=== PATIENT | male | born 1950 | race Hispanic/Latino ===

== ENCOUNTER 2017-07-18 13:58 | Inpatient (IN) | payer MEDICARE ==
[2017-07-18 14:43] LABS: Urine Drugs of Abuse Note Disclamer
[2017-07-18 14:56] LABS: Bilirubin,Urine NEG (Negative); Blood,Urine NEG (Negative); Ketones,Urine NEG (Negative); Leukocyte Esterase,Urine NEG (Negative); Nitrite,Urine NEG (Negative); Protein,Urine <15 mg/dL mg/dL (Negative); Urobilinogen,Urine < 2.0 mg/dL (<2.0); WBC,Urine < 1.0 /HPF (0.0-6.0)
[2017-07-18 15:01] LABS: Eosinophils % (Auto) 1.4 % (0.0-4.3); Hematocrit 31.3 % (35.5-45.6); Hemoglobin 10.8 gm/dl (11.8-15.2); Mean Corpuscular HGB Conc 35 % (32-34); Mean Corpuscular Hemoglobin 36 pg (28-32); Mean Corpuscular Volume 104 fl (84-94); Platelet Count 336 K/mm3 (140-440); Red Blood Count 3.02 M/mm3 (3.65-5.03); Red Cell Distribution Width 12.6 % (13.2-15.2); White Blood Count 6.9 K/mm3 (4.5-11.0)
--- NOTE | 2017-07-18 15:18 | Cat Scan Report ---
FINAL REPORT EXAM: CT HEAD/BRAIN WO CON HISTORY: AMS/Weakness/Confusion TECHNIQUE: CT examination of the head without IV contrast PRIORS: None. FINDINGS: Right frontal scalp swelling with scalp hematoma adjacent skin jackie. Adjacent skull appears intact. No acute air-fluid level visualized in the included air-filled sinuses. Bone windows demonstrate no acute fracture. There is ventricular and sulcal prominence compatible with global cerebrocortical atrophy. Low attenuation regions in the cerebral white matter, while nonspecific, are present and usually attributed to chronic ischemic gliosis. The differential includes demyelination in the appropriate clinical setting. The brain contains no mass, mass effect, hemorrhage, or acute infarct. There is no extra-axial intracranial bleed or brain bleed. There is no midline shift. IMPRESSION: No acute CVA, intracranial bleed, or brain mass
[2017-07-18 15:22] LABS: Alanine Aminotransferase 25 units/L (7-56); Albumin 3.4 g/dL (3.9-5); Albumin/Globulin Ratio 1.4 %; Alkaline Phosphatase 85 units/L (35-129); BUN/Creatinine Ratio 21.66; Blood Urea Nitrogen 13 mg/dL (9-20); Calcium 8.4 mg/dL (8.4-10.2); Carbon Dioxide 25 mmol/L (22-30); Glucose 107 mg/dL (75-100); Total Protein 5.8 g/dL (6.3-8.2)
[2017-07-18 15:23] LABS: Anion Gap 16 mmol/L; Chloride 99.8 mmol/L (98-107); Potassium 3.7 mmol/L (3.6-5.0); Sodium 137 mmol/L (137-145)
--- NOTE | 2017-07-18 15:51 | Emergency Department Report ---
ED General Adult HPI - General Chief complaint: Psych Stated complaint: MED PHYC EVAL Time Seen by Provider: 07/18/17 15:49 Source: patient, EMS Mode of arrival: Stretcher Limitations: No Limitations - History of Present Illness Initial comments: The patient was sent to this facility for medical clearance for a psychiatric facility. Per EMS the patient was sent from [facility] for evaluation and medical clearance to [place]. Nursing tells me that the patient has been seen last night although I think it may have been some time ago at [facility] where he had sutures of a head wound. According to a discharge summary which was printed on 07/13/2017 the patient was discharged with an assessment of bilateral subdural hematoma. He has a history of alcohol abuse. Reading the patient's history however it states the CT of his head was negative for subdural hematoma. Thus I am confused about his diagnosis of prior subdural hematoma. At any case the patient was sent for evaluation with no specific complaint. He has not been agitated per nursing staff. I was advised to this patient prior to my assessment of his chart by another nurse who found the patient on the floor in the room after he had apparently hit the back of his head. The nurse stated that she heard a thunk consistent with the head hitting the floor. When I arrived at the patient's bedside he had already been returned to the [facility]. I asked the patient how he ended up on the floor and if he passed out. He stated that he did not know how he ended up on the floor at all. I asked him if he remembered falling or hitting his head and he answered negatively. I asked him if he ever remembers when he falls or trauma and he stated as well no heat test findings himself on the floor. This certainly is consistent with a syncopal episode. He has evidence of prior sutured wounds of his forehead with sutures in place as well as bilateral ecchymoses periorbital and forehead bruising. He is now awake and alert and oriented. He had previously had a CT of his head which was negative. After the four-hour repeat CT was ordered. -: Sudden Location: head (states the back of his head is sore but mild ) Quality: aching Consistency: intermittent Improves with: none Worsens with: none Associated Symptoms: denies other symptoms Treatments Prior to Arrival: none - Related Data Home Medications Medication Instructions Recorded Confirmed Last Taken No Known Home Medications [No 07/18/17 07/18/17 Unknown Reported Home Medications] Allergies Allergy/AdvReac Type Severity Reaction Status Date / Time codeine Allergy Unknown Verified 07/18/17 14:10 procaine HCl [From Novocain] Allergy Unknown Verified 07/18/17 14:10 ED Review of Systems ROS: Stated complaint: MED PHYC EVAL Other details as noted in HPI Constitutional: denies: chills, fever Eyes: denies: eye pain, eye discharge, vision change ENT: denies: ear pain, throat pain Respiratory: denies: cough, shortness of breath, wheezing Cardiovascular: denies: chest pain, palpitations Endocrine: no symptoms reported Gastrointestinal: denies: abdominal pain, nausea, diarrhea Genitourinary: denies: urgency, dysuria Musculoskeletal: other (denied neck pain). denies: back pain, joint swelling, arthralgia Skin: denies: rash, lesions Neurological: denies: headache, weakness, paresthesias Psychiatric: denies: anxiety, depression Hematological/Lymphatic: denies: easy bleeding, easy bruising ED Past Medical Hx - Past Medical History Previous Medical History?: Yes Additional medical history: hyponatermia. alcohol dependence. hypo- osmolality. bilateral subdural hematomas. elevated lft's. frequent falls - Surgical History Past Surgical History?: Yes Additional Surgical History: cataract. left ankle. ACL surgery - Social History Smoking Status: Never Smoker Substance Use Type: Alcohol - Medications Home Medications: Home Medications Medication Instructions Recorded Confirmed Last Taken Type No Known Home Medications [No 07/18/17 07/18/17 Unknown History Reported Home Medications] ED Physical Exam - General Limitations: Other (dementia) General appearance: alert, in no apparent distress - Head Head exam: Present: normocephalic, other (forehead ecchymosis) - Eye Eye exam: Present: normal appearance, periorbital swelling (periorbital ecchymosis bilaterally). Absent: scleral icterus - ENT ENT exam: Present: mucous membranes moist - Neck Neck exam: Present: normal inspection. Absent: tenderness, meningismus - Respiratory Respiratory exam: Present: normal lung sounds bilaterally. Absent: respiratory distress - Cardiovascular Cardiovascular Exam: Present: regular rate, normal rhythm. Absent: systolic murmur, diastolic murmur, rubs, gallop - GI/Abdominal GI/Abdominal exam: Present: soft, normal bowel sounds. Absent: distended, tenderness, guarding, rebound, rigid - Rectal Rectal exam: Present: deferred - Extremities Exam Extremities exam: Present: normal inspection - Back Exam Back exam: Present: normal inspection - Neurological Exam Neurological exam: Present: alert, oriented X3, CN II-XII intact. Absent: motor sensory deficit (no acute focal deficit) - Psychiatric Psychiatric exam: Present: normal mood, flat affect - Skin Skin exam: Present: warm, dry, intact, ecchymosis. Absent: rash ED Course Vital Signs 07/18/17 07/18/17 07/18/17 14:17 14:30 14:35 Temperature 98.7 F Pulse Rate Blood Pressure 109/60 125/77 O2 Sat by Pulse 100 100 Oximetry 07/18/17 07/18/17 07/18/17 14:45 15:31 15:45 Temperature Pulse Rate Blood Pressure 125/77 137/68 143/80 O2 Sat by Pulse 98 98 100 Oximetry 07/18/17 07/18/17 07/18/17 16:00 16:04 16:15 Temperature Pulse Rate 102 H 101 H Blood Pressure 134/86 134/86 O2 Sat by Pulse 100 100 Oximetry 07/18/17 07/18/17 07/18/17 16:37 16:45 17:00 Temperature Pulse Rate Blood Pressure 134/86 111/64 115/73 O2 Sat by Pulse 94 100 100 Oximetry 07/18/17 07/18/17 07/18/17 17:15 17:31 17:45 Temperature Pulse Rate Blood Pressure 134/86 134/86 99/69 O2 Sat by Pulse 100 97 99 Oximetry 07/18/17 07/18/17 07/18/17 18:00 18:15 18:30 Temperature Pulse Rate Blood Pressure 114/71 99/69 145/86 O2 Sat by Pulse 99 100 100 Oximetry 07/18/17 07/18/17 07/18/17 18:45 19:01 19:15 Temperature Pulse Rate Blood Pressure 114/71 123/67 145/86 O2 Sat by Pulse 100 100 100 Oximetry 07/18/17 19:31 Temperature Pulse Rate Blood Pressure 145/86 O2 Sat by Pulse Oximetry ED Medical Decision Making - Lab Data Result diagrams: 07/18/17 14:45 07/18/17 14:45 Laboratory Results - last 24 hr 07/18/17 07/18/17 07/18/17 14:39 14:39 14:45 WBC 6.9 RBC 3.02 L Hgb 10.8 L Hct 31.3 L MCV 104 H MCH 36 H MCHC 35 H RDW 12.6 L Plt Count 336 Lymph % (Auto) 5.8 L Ocean % (Auto) 10.2 H Eos % (Auto) 1.4 Baso % (Auto) 1.0 Lymph # 0.4 L [place] # 0.7 Eos # 0.1 Baso # 0.1 Seg Neutrophils % 81.6 H Seg Neutrophils # 5.6 Sodium Potassium Chloride Carbon Dioxide Anion Gap BUN Creatinine Estimated GFR BUN/Creatinine Ratio Glucose Calcium Total Bilirubin AST ALT Alkaline Phosphatase Ammonia Total Protein Albumin Albumin/Globulin Ratio Urine Color Straw Urine Turbidity Clear Urine pH 6.0 Ur Specific [place] 1.010 Urine Protein <15 mg/dl Urine Glucose (UA) Neg Urine Ketones Neg Urine Blood Neg Urine Nitrite Neg Urine Bilirubin Neg Urine Urobilinogen < 2.0 Ur Leukocyte Esterase Neg Urine WBC (Auto) < 1.0 Urine RBC (Auto) 1.0 Urine Opiates Screen Presumptive negative Urine Methadone Screen Presumptive negative Ur Barbiturates Screen Presumptive negative Ur Phencyclidine Scrn Presumptive negative Ur Amphetamines Screen Presumptive negative U Benzodiazepines Scrn Presumptive negative Urine Cocaine Screen Presumptive negative U Marijuana (THC) Screen Presumptive negative Drugs of Abuse Note Disclamer 07/18/17 07/18/17 14:45 14:45 WBC RBC Hgb Hct MCV MCH MCHC RDW Plt Count Lymph % (Auto) [place] % (Auto) Eos % (Auto) Baso % (Auto) Lymph # [place] # Eos # Baso # Seg Neutrophils % Seg Neutrophils # Sodium 137 Potassium 3.7 Chloride 99.8 Carbon Dioxide 25 Anion Gap 16 BUN 13 Creatinine 0.6 L Estimated GFR > 60 BUN/Creatinine Ratio 21.66 Glucose 107 H Calcium 8.4 Total Bilirubin 0.60 AST 26 ALT 25 Alkaline Phosphatase 85 Ammonia 28.0 Total Protein 5.8 L Albumin 3.4 L Albumin/Globulin Ratio 1.4 Urine Color Urine Turbidity Urine pH Ur Specific [place] Urine Protein Urine Glucose (UA) Urine Ketones Urine Blood Urine Nitrite Urine Bilirubin Urine Urobilinogen Ur Leukocyte Esterase Urine WBC (Auto) Urine RBC (Auto) Urine Opiates Screen Urine Methadone Screen Ur Barbiturates Screen Ur Phencyclidine Scrn Ur Amphetamines Screen U Benzodiazepines Scrn Urine Cocaine Screen U Marijuana (THC) Screen Drugs of Abuse Note - EKG Data -: EKG Interpreted by Me EKG shows normal: sinus rhythm, axis, intervals, QRS complexes, ST-T waves ( nonspecific changes) - EKG Data Interpretation: nonspecific ST-T wave jannet, other (occasional atrial ectopy) Critical care attestation.: If time is entered above; I have spent that time in minutes in the direct care of this critically ill patient, excluding procedure time. ED Disposition Clinical Impression: Syncope Qualifiers: Syncope type: unspecified Qualified Code(s): R55 - Syncope and collapse Closed head injury Qualifiers: Encounter type: initial encounter Qualified Code(s): S09.90XA - Unspecified injury of head, initial encounter Disposition: 09 OP ADMIT IP TO THIS HOSP Is pt being admited?: Yes Does the pt Need Aspirin: Yes Condition: Stable Instructions: Syncope (ED) Referrals: PRIMARY CARE, [Primary Care Provider] - 3-5 Days Time of Disposition: 19:13
[2017-07-18] MEDS ORDERED: NACL 0.9% 1000 ML 1,000 ML IV ONE (16:01)
--- NOTE | 2017-07-18 16:47 | Cat Scan Report ---
FINAL REPORT EXAM: CT HEAD/BRAIN WO CON HISTORY: fell again in ED LOC TECHNIQUE: CT examination of the head without IV contrast PRIORS: 07/18/2017 FINDINGS: Again noted is right frontal scalp swelling with small scalp hematoma. No adjacent skull fracture. Scalp skin jackie in this region. Again present are prominent dural vessels bilaterally but no definite evidence of subdural hemorrhage. The brain contains no mass, mass effect, hemorrhage, or acute infarct. There is no extra-axial intracranial bleed or brain bleed. There is no midline shift. No acute air-fluid level visualized in the included air-filled sinuses. Bone windows demonstrate no acute fracture. There is ventricular and sulcal prominence again compatible with global cerebrocortical atrophy. Low attenuation regions in the cerebral white matter, while nonspecific, remain present and usually attributed to chronic ischemic gliosis. The differential includes demyelination in the appropriate clinical setting. IMPRESSION: No definite CT evidence of acute CVA, intracranial bleed, or brain mass
--- NOTE | 2017-07-18 17:17 | Cat Scan Report ---
FINAL REPORT EXAM: CT CERVICAL SPINE WO CON HISTORY: fell again in ED LOC TECHNIQUE: CT cervical spine with reconstructions PRIORS: None. FINDINGS: Vertebral bodies demonstrate normal height and alignment. There is degenerative disc space narrowing at C3-C4 and C6-C7 with small marginal osteophytes. Multilevel facet joint arthropathy present throughout the cervical spine. The facet joints demonstrate normal alignment. The spinous processes are intact. Craniocervical junction is unremarkable. C1 and C2 are intact. IMPRESSION: Degenerative disc disease at C3-C4 and C6-C7 Marked multilevel facet joint arthropathy No acute traumatic abnormality identified
[2017-07-18] MEDS ORDERED: BABY ASPIRIN PO ONE (19:13)
--- NOTE | 2017-07-18 20:16 | History and Physical Report ---
History of Present Illness Date of examination: 07/18/17 Date of admission: 07/18/17 19:15 Chief complaint: Passed out multiple times in last 3 months History of present illness: History of Present Illness The patient was sent to this facility for medical clearance from a psychiatric facility. Per EMS the patient was sent from [facility] for evaluation and medical clearance to [place]. According to a discharge summary from [facility] which was printed on 07/13/2017 patient was discharged with an assessment of bilateral subdural hematoma. He has a history of alcohol abuse. Reading the patient's history however it states the CT of his head was negative for subdural hematoma. The patient was sent for evaluation with no specific complaint. He has been agitated per nursing staff. As per patient he has passed out multiple times in the last 3 to 4 months.He pa ssed out in the ER once and fell from [facility]. He is now awake and alert and oriented. He had previously had a CT of his head which was negative. After the four-hour repeat CT was ordered. -: Sudden Location: head (states the back of his head is sore but mild ) Quality: aching Consistency: intermittent Improves with: none Worsens with: none Associated Symptoms: denies other symptoms Treatments Prior to Arrival: none Past Medical History Previous Medical History?: Yes Additional medical history: hyponatermia. alcohol dependence. hypo- osmolality. bilateral subdural hematomas. elevated lft's. frequent falls Surgical History Past Surgical History?: Yes Additional Surgical History: cataract. left ankle. ACL surgery Social History Smoking Status: Never Smoker Substance Use Type: Alcohol Medications Home Medications: Home Medications Medication Instructions Recorded Confirmed Last Taken Type No Known Home Medications [No 07/18/17 07/18/17 Unknown History Reported Home Medications] Review of Systems Stated complaint: MED PHYC EVAL Other details as noted in HPI Constitutional: denies: chills, fever Eyes: denies: eye pain, eye discharge, vision change ENT: denies: ear pain, throat pain Respiratory: denies: cough, shortness of breath, wheezing Cardiovascular: denies: chest pain, palpitations Endocrine: no symptoms reported Gastrointestinal: denies: abdominal pain, nausea, diarrhea Genitourinary: denies: urgency, dysuria Musculoskeletal: other (denied neck pain). denies: back pain, joint swelling, arthralgia Skin: denies: rash, lesions Neurological: denies: headache, weakness, paresthesias Psychiatric: denies: anxiety, depression Hematological/Lymphatic: denies: easy bleeding, easy bruising Medications and Allergies Allergies Allergy/AdvReac Type Severity Reaction Status Date / Time codeine Allergy Unknown Verified 07/18/17 14:10 procaine HCl [From Novocain] Allergy Unknown Verified 07/18/17 14:10 Home Medications Medication Instructions Recorded Confirmed Last Taken Type No Known Home Medications [No 07/18/17 07/18/17 Unknown History Reported Home Medications] Active Meds: Active Medications Sodium Chloride (Nacl 0.9% 1000 Ml) 1,000 mls @ 125 mls/hr IV ONCE ONE Stop: 07/19/17 00:00 Last Admin: 07/18/17 17:00 Dose: 125 mls/hr Exam - Physical Exam Narrative exam: Agitated and confused - Constitutional Vitals: Temp Pulse Resp BP Pulse Ox 98.7 F 101 H 145/86 100 07/18/17 14:35 07/18/17 16:15 07/18/17 19:31 07/18/17 19:15 General appearance: Present: no acute distress, well-nourished - EENT Eyes: Present: PERRL ENT: hearing intact, clear oral mucosa, other (Echymoses on Facr x2) - Neck Neck: Present: supple, normal ROM - Respiratory Respiratory effort: normal Respiratory: bilateral: CTA - Cardiovascular Heart rate: 80 Rhythm: regular Heart Sounds: Present: S1 & S2. Absent: rub, click - Extremities Extremities: no ischemia, pulses intact, pulses symmetrical, No edema Peripheral Pulses: within normal limits - Abdominal General gastrointestinal: Present: soft, non-tender, non-distended, normal bowel sounds Male genitourinary: Present: normal - Rectal Rectal Exam: deferred - Integumentary Integumentary: Present: clear, warm, dry - Musculoskeletal Musculoskeletal: gait normal, strength equal bilaterally - Psychiatric Psychiatric: intact judgment & insight, agitated, other (Confused) - Neurologic Neurologic: CNII-XII intact, moves all extremities - Allied Health Allied health notes reviewed: nursing, case management Results - Labs CBC & Chem 7: 07/18/17 14:45 07/18/17 14:45 Labs: Laboratory Last Values WBC 6.9 K/mm3 (4.5-11.0) 07/18/17 14:45 RBC 3.02 M/mm3 (3.65-5.03) L 07/18/17 14:45 Hgb 10.8 gm/dl (11.8-15.2) L 07/18/17 14:45 Hct 31.3 % (35.5-45.6) L 07/18/17 14:45 MCV 104 fl (84-94) H 07/18/17 14:45 MCH 36 pg (28-32) H 07/18/17 14:45 MCHC 35 % (32-34) H 07/18/17 14:45 RDW 12.6 % (13.2-15.2) L 07/18/17 14:45 Plt Count 336 K/mm3 (140-440) 07/18/17 14:45 Lymph % (Auto) 5.8 % (13.4-35.0) L 07/18/17 14:45 [place] % (Auto) 10.2 % (0.0-7.3) H 07/18/17 14:45 Eos % (Auto) 1.4 % (0.0-4.3) 07/18/17 14:45 Baso % (Auto) 1.0 % (0.0-1.8) 07/18/17 14:45 Lymph # 0.4 K/mm3 (1.2-5.4) L 07/18/17 14:45 [place] # 0.7 K/mm3 (0.0-0.8) 07/18/17 14:45 Eos # 0.1 K/mm3 (0.0-0.4) 07/18/17 14:45 Baso # 0.1 K/mm3 (0.0-0.1) 07/18/17 14:45 Seg Neutrophils % 81.6 % (40.0-70.0) H 07/18/17 14:45 Seg Neutrophils # 5.6 K/mm3 (1.8-7.7) 07/18/17 14:45 Sodium 137 mmol/L (137-145) 07/18/17 14:45 Potassium 3.7 mmol/L (3.6-5.0) 07/18/17 14:45 Chloride 99.8 mmol/L (98-107) 07/18/17 14:45 Carbon Dioxide 25 mmol/L (22-30) 07/18/17 14:45 Anion Gap 16 mmol/L 07/18/17 14:45 BUN 13 mg/dL (9-20) 07/18/17 14:45 Creatinine 0.6 mg/dL (0.8-1.5) L 07/18/17 14:45 Estimated GFR > 60 ml/min 07/18/17 14:45 BUN/Creatinine Ratio 21.66 % 07/18/17 14:45 Glucose 107 mg/dL (75-100) H 07/18/17 14:45 Calcium 8.4 mg/dL (8.4-10.2) 07/18/17 14:45 Total Bilirubin 0.60 mg/dL (0.1-1.2) 07/18/17 14:45 AST 26 units/L (5-40) 07/18/17 14:45 ALT 25 units/L (7-56) 07/18/17 14:45 Alkaline Phosphatase 85 units/L (35-129) 07/18/17 14:45 Ammonia 28.0 umol/L (25-60) 07/18/17 14:45 Total Protein 5.8 g/dL (6.3-8.2) L 07/18/17 14:45 Albumin 3.4 g/dL (3.9-5) L 07/18/17 14:45 Albumin/Globulin Ratio 1.4 % 07/18/17 14:45 Urine Color Straw (Yellow) 07/18/17 14:39 Urine Turbidity Clear (Clear) 07/18/17 14:39 Urine pH 6.0 (5.0-7.0) 07/18/17 14:39 Ur Specific [place] 1.010 (1.003-1.030) 07/18/17 14:39 Urine Protein <15 mg/dl mg/dL (Negative) 07/18/17 14:39 Urine Glucose (UA) Neg mg/dL (Negative) 07/18/17 14:39 Urine Ketones Neg mg/dL (Negative) 07/18/17 14:39 Urine Blood Neg (Negative) 07/18/17 14:39 Urine Nitrite Neg (Negative) 07/18/17 14:39 Urine Bilirubin Neg (Negative) 07/18/17 14:39 Urine Urobilinogen < 2.0 mg/dL (<2.0) 07/18/17 14:39 Ur Leukocyte Esterase Neg (Negative) 07/18/17 14:39 Urine WBC (Auto) < 1.0 /HPF (0.0-6.0) 07/18/17 14:39 Urine RBC (Auto) 1.0 /HPF (0.0-6.0) 07/18/17 14:39 Urine Opiates Screen Presumptive negative 07/18/17 14:39 Urine Methadone Screen Presumptive negative 07/18/17 14:39 Ur Barbiturates Screen Presumptive negative 07/18/17 14:39 Ur Phencyclidine Scrn Presumptive negative 07/18/17 14:39 Ur Amphetamines Screen Presumptive negative 07/18/17 14:39 U Benzodiazepines Scrn Presumptive negative 07/18/17 14:39 Urine Cocaine Screen Presumptive negative 07/18/17 14:39 U Marijuana (THC) Screen Presumptive negative 07/18/17 14:39 Drugs of Abuse Note Disclamer 07/18/17 14:39 Plasma/Serum Alcohol < 0.01 gm% (0-0.07) 07/18/17 14:45 - Imaging and Cardiology CT Scan - head: report reviewed (No SDH) Assessment and Plan Advance Directives: Yes (Full code) VTE prophylaxis?: Chemical Plan of care discussed with patient/family: Yes - Patient Problems (1) Toxic encephalopathy Current Visit: Yes Status: Acute Plan to address problem: Sec to DT'sbecause of his ETOH dependence.Banana bag and CIWA protocol ordered (2) Delirium tremens Current Visit: Yes Status: Acute Plan to address problem: CIWA protocol initiated (3) Closed head injury Current Visit: Yes Status: Acute Qualifiers: Encounter type: initial encounter Qualified Code(s): S09.90XA - Unspecified injury of head, initial encounter Plan to address problem: No SDH (4) Syncope Current Visit: Yes Status: Acute Qualifiers: Syncope type: unspecified Encounter type: E Qualified Code(s): R55 - Syncope and collapse Plan to address problem: Syncope w/u .CDS and Lexiscan ordeered (5) Anemia Current Visit: Yes Status: Chronic Qualifiers: Anemia type: A Iron deficiency anemia type: I Vitamin B12 deficiency anemia type: V Folate deficiency anemia type: F Bone marrow failure anemia type: B Hemolytic anemia type: H Other causes of anemia: O Chronic kidney disease stage: C Plan to address problem: iron levels folic acid and B12 ordered. (6) DVT prophylaxis Current Visit: Yes Status: Acute Plan to address problem: on Lovenox
[2017-07-18] MEDS ORDERED: ZOFRAN IV PRN (20:17)
[2017-07-18] MEDS ORDERED: DILAUDID IV PRN (20:17)
[2017-07-18] MEDS ORDERED: DULCOLAX PR PRN (20:17)
[2017-07-18] MEDS ORDERED: MILK OF MAGNESIA PO PRN (20:17)
[2017-07-18] MEDS ORDERED: PERCOCET 5/325 PO PRN (20:17)
--- NOTE | 2017-07-18 20:21 | History and Physical Report ---
History of Present Illness Date of examination: 07/18/17 Date of admission: 07/18/17 19:15 Medications and Allergies Allergies Allergy/AdvReac Type Severity Reaction Status Date / Time codeine Allergy Unknown Verified 07/18/17 14:10 procaine HCl [From Novocain] Allergy Unknown Verified 07/18/17 14:10 Home Medications Medication Instructions Recorded Confirmed Last Taken Type No Known Home Medications [No 07/18/17 07/18/17 Unknown History Reported Home Medications] Active Meds: Active Medications Acetaminophen (Tylenol) 650 mg PO Q4H PRN PRN Reason: Pain MILD(1-3)/Fever >100.5/CRESPO Bisacodyl (Dulcolax) 10 mg SD QDAY PRN PRN Reason: Constipation unrelieved by MOM Famotidine (Pepcid) 20 mg IV BID RIMA Hydromorphone HCl (Dilaudid) 0.5 mg IV Q3H PRN PRN Reason: Pain , Severe (7-10) Sodium Chloride (Nacl 0.9% 1000 Ml) 1,000 mls @ 125 mls/hr IV ONCE ONE Stop: 07/19/17 00:00 Last Admin: 07/18/17 17:00 Dose: 125 mls/hr Sodium Chloride (Nacl 0.9% 1000 Ml) 1,000 mls @ 75 mls/hr IV DIRECT RIMA Magnesium Hydroxide (Milk Of Magnesia) 30 ml PO Q4H PRN PRN Reason: Constipation Ondansetron HCl (Zofran) 4 mg IV Q8H PRN PRN Reason: N/V unrelieved by Reglan Oxycodone/Acetaminophen (Percocet 5/325) 1 tab PO Q6H PRN PRN Reason: Pain, Moderate (4-6) Zolpidem Tartrate (Ambien) 5 mg PO QHS PRN PRN Reason: Insomnia Exam - Constitutional Vitals: Temp Pulse Resp BP Pulse Ox 98.7 F 101 H 145/86 100 07/18/17 14:35 07/18/17 16:15 07/18/17 19:31 07/18/17 19:15 Results - Labs CBC & Chem 7: 07/18/17 14:45 07/18/17 14:45 Labs: Laboratory Last Values WBC 6.9 K/mm3 (4.5-11.0) 07/18/17 14:45 RBC 3.02 M/mm3 (3.65-5.03) L 07/18/17 14:45 Hgb 10.8 gm/dl (11.8-15.2) L 07/18/17 14:45 Hct 31.3 % (35.5-45.6) L 07/18/17 14:45 MCV 104 fl (84-94) H 07/18/17 14:45 MCH 36 pg (28-32) H 07/18/17 14:45 MCHC 35 % (32-34) H 07/18/17 14:45 RDW 12.6 % (13.2-15.2) L 07/18/17 14:45 Plt Count 336 K/mm3 (140-440) 07/18/17 14:45 Lymph % (Auto) 5.8 % (13.4-35.0) L 07/18/17 14:45 [place] % (Auto) 10.2 % (0.0-7.3) H 07/18/17 14:45 Eos % (Auto) 1.4 % (0.0-4.3) 07/18/17 14:45 Baso % (Auto) 1.0 % (0.0-1.8) 07/18/17 14:45 Lymph # 0.4 K/mm3 (1.2-5.4) L 07/18/17 14:45 [place] # 0.7 K/mm3 (0.0-0.8) 07/18/17 14:45 Eos # 0.1 K/mm3 (0.0-0.4) 07/18/17 14:45 Baso # 0.1 K/mm3 (0.0-0.1) 07/18/17 14:45 Seg Neutrophils % 81.6 % (40.0-70.0) H 07/18/17 14:45 Seg Neutrophils # 5.6 K/mm3 (1.8-7.7) 07/18/17 14:45 Sodium 137 mmol/L (137-145) 07/18/17 14:45 Potassium 3.7 mmol/L (3.6-5.0) 07/18/17 14:45 Chloride 99.8 mmol/L (98-107) 07/18/17 14:45 Carbon Dioxide 25 mmol/L (22-30) 07/18/17 14:45 Anion Gap 16 mmol/L 07/18/17 14:45 BUN 13 mg/dL (9-20) 07/18/17 14:45 Creatinine 0.6 mg/dL (0.8-1.5) L 07/18/17 14:45 Estimated GFR > 60 ml/min 07/18/17 14:45 BUN/Creatinine Ratio 21.66 % 07/18/17 14:45 Glucose 107 mg/dL (75-100) H 07/18/17 14:45 Calcium 8.4 mg/dL (8.4-10.2) 07/18/17 14:45 Total Bilirubin 0.60 mg/dL (0.1-1.2) 07/18/17 14:45 AST 26 units/L (5-40) 07/18/17 14:45 ALT 25 units/L (7-56) 07/18/17 14:45 Alkaline Phosphatase 85 units/L (35-129) 07/18/17 14:45 Ammonia 28.0 umol/L (25-60) 07/18/17 14:45 Total Protein 5.8 g/dL (6.3-8.2) L 07/18/17 14:45 Albumin 3.4 g/dL (3.9-5) L 07/18/17 14:45 Albumin/Globulin Ratio 1.4 % 07/18/17 14:45 Urine Color Straw (Yellow) 07/18/17 14:39 Urine Turbidity Clear (Clear) 07/18/17 14:39 Urine pH 6.0 (5.0-7.0) 07/18/17 14:39 Ur Specific [place] 1.010 (1.003-1.030) 07/18/17 14:39 Urine Protein <15 mg/dl mg/dL (Negative) 07/18/17 14:39 Urine Glucose (UA) Neg mg/dL (Negative) 07/18/17 14:39 Urine Ketones Neg mg/dL (Negative) 07/18/17 14:39 Urine Blood Neg (Negative) 07/18/17 14:39 Urine Nitrite Neg (Negative) 07/18/17 14:39 Urine Bilirubin Neg (Negative) 07/18/17 14:39 Urine Urobilinogen < 2.0 mg/dL (<2.0) 07/18/17 14:39 Ur Leukocyte Esterase Neg (Negative) 07/18/17 14:39 Urine WBC (Auto) < 1.0 /HPF (0.0-6.0) 07/18/17 14:39 Urine RBC (Auto) 1.0 /HPF (0.0-6.0) 07/18/17 14:39 Urine Opiates Screen Presumptive negative 07/18/17 14:39 Urine Methadone Screen Presumptive negative 07/18/17 14:39 Ur Barbiturates Screen Presumptive negative 07/18/17 14:39 Ur Phencyclidine Scrn Presumptive negative 07/18/17 14:39 Ur Amphetamines Screen Presumptive negative 07/18/17 14:39 U Benzodiazepines Scrn Presumptive negative 07/18/17 14:39 Urine Cocaine Screen Presumptive negative 07/18/17 14:39 U Marijuana (THC) Screen Presumptive negative 07/18/17 14:39 Drugs of Abuse Note Disclamer 07/18/17 14:39 Plasma/Serum Alcohol < 0.01 gm% (0-0.07) 07/18/17 14:45
[2017-07-18] MEDS ORDERED: ATIVAN IV PRN ×3 (20:32→20:48)
[2017-07-18] MEDS ORDERED: LIBRIUM PO PRN ×4 (20:32→20:48)
[2017-07-18] MEDS ORDERED: ATIVAN ONE (20:42)
[2017-07-18] MEDS ORDERED: BABY ASPIRIN ONE (20:46)
[2017-07-18] MEDS ORDERED: ATIVAN PO PRN ×2 (20:48)
[2017-07-18] MEDS: NACL 0.9% 1000 ML 1,000 ML IV SCH (21:53)
[2017-07-18] MEDS: PEPCID IV SCH (21:53)
[2017-07-18 22:13] LABS: Creatine Kinase MB 3.2 ng/mL (0.0-4.0)
[2017-07-18 22:14] LABS: Creatine Kinase 121 units/L (55-170)
[2017-07-18 22:36] LABS: Albumin 3.3 g/dL (3.9-5); Albumin/Globulin Ratio 1.3 %; Bilirubin,Direct 0.2 mg/dL (0-0.2); Bilirubin,Indirect 0.4 mg/dL; Bilirubin,Total 0.6 mg/dL (0.1-1.2); Total Protein 5.8 g/dL (6.3-8.2)
[2017-07-18] MEDS: ATIVAN IV PRN (22:36)
[2017-07-19] MEDS: ATIVAN IV PRN ×2 (06:43→14:48)
[2017-07-19] MEDS ORDERED: LEXISCAN IV ONE ×2 (08:04→08:14)
[2017-07-19] MEDS ORDERED: VITAMIN B-1 100 MG, FOLVITE 1 MG, INFUVITE 10 ML in NACL 0.9% 1000 ML 1,000 ML IV ONE (08:30)
[2017-07-19 08:44] LABS: Basophils % (Auto) 1.2 % (0.0-1.8); Eosinophils % (Auto) 1.6 % (0.0-4.3); Hematocrit 30.8 % (35.5-45.6); Hemoglobin 10.5 gm/dl (11.8-15.2); Mean Corpuscular HGB Conc 34 % (32-34); Mean Corpuscular Hemoglobin 35 pg (28-32); Mean Corpuscular Volume 103 fl (84-94); Platelet Count 318 K/mm3 (140-440); Red Blood Count 2.98 M/mm3 (3.65-5.03); Red Cell Distribution Width 12.6 % (13.2-15.2); White Blood Count 5.8 K/mm3 (4.5-11.0)
[2017-07-19 09:01] LABS: Alanine Aminotransferase 22 units/L (7-56); Albumin 2.9 g/dL (3.9-5); Alkaline Phosphatase 74 units/L (35-129); Anion Gap 17 mmol/L; Blood Urea Nitrogen 9 mg/dL (9-20); Carbon Dioxide 23 mmol/L (22-30); Chloride 101.6 mmol/L (98-107); Glucose 82 mg/dL (75-100); Potassium 3.7 mmol/L (3.6-5.0); Sodium 138 mmol/L (137-145); Total Protein 5.7 g/dL (6.3-8.2)
[2017-07-19 09:02] LABS: Creatine Kinase 88 units/L (55-170)
--- NOTE | 2017-07-19 09:28 | XRay Report ---
AP CHEST: HISTORY: Hypertension AP view of the chest demonstrates a normal mediastinal and cardiac contour with clear lungs and normal bony and soft tissue structures. IMPRESSION: Unremarkable AP chest.
--- NOTE | 2017-07-19 12:49 | Progress Note ---
Assessment and Plan Assessment and plan: Alcohol withdrawal syndrome. Admitted to Telemetry He has been started on CIWA protocol. Thiamine, folic acid. Syncope. Obtain Echocardiogram, carotid Doppler ultrasound Alcohol abuse. Counseled on importance of quitting. History of subdural hematoma. History of frequent falls. Consult physical therapy DVT prophylaxis. SCDs only. No anticoagulation because of history of multiple falls and subdural hematoma. FULL CODE STATUS Hospitalist Physical - Physical exam Narrative exam: Gen appearance: Not in acute distress HEENT: Bruises, small hematoma on forehead, wound with 2 jackie on face Neck: supple, no JVD, Lungs: Clear to auscultation bilaterally, no crackles or wheezes Heart :S1 and S2 regular, no murmurs, rubs or gallop Abdomen: Soft, non tender, non-distended, normal bowel sounds. Extremities :no edema, no clubbing or cyanosis Neuro: Awake,alert, oriented, tremors of hands, moves all ext - Constitutional Vitals: Temp Pulse Resp BP Pulse Ox 97.9 F 74 18 144/73 98 07/19/17 08:59 07/19/17 11:36 07/19/17 08:59 07/19/17 11:36 07/19/17 08:59 General appearance: Present: no acute distress, well-nourished Results - Labs CBC & Chem 7: 07/19/17 08:18 07/19/17 04:00 Labs: Laboratory Last Values WBC 5.8 K/mm3 (4.5-11.0) 07/19/17 08:18 RBC 2.98 M/mm3 (3.65-5.03) L 07/19/17 08:18 Hgb 10.5 gm/dl (11.8-15.2) L 07/19/17 08:18 Hct 30.8 % (35.5-45.6) L 07/19/17 08:18 MCV 103 fl (84-94) H 07/19/17 08:18 MCH 35 pg (28-32) H 07/19/17 08:18 MCHC 34 % (32-34) 07/19/17 08:18 RDW 12.6 % (13.2-15.2) L 07/19/17 08:18 Plt Count 318 K/mm3 (140-440) 07/19/17 08:18 Lymph % (Auto) 7.1 % (13.4-35.0) L 07/19/17 08:18 [place] % (Auto) 11.1 % (0.0-7.3) H 07/19/17 08:18 Eos % (Auto) 1.6 % (0.0-4.3) 07/19/17 08:18 Baso % (Auto) 1.2 % (0.0-1.8) 07/19/17 08:18 Lymph # 0.4 K/mm3 (1.2-5.4) L 07/19/17 08:18 [place] # 0.6 K/mm3 (0.0-0.8) 07/19/17 08:18 Eos # 0.1 K/mm3 (0.0-0.4) 07/19/17 08:18 Baso # 0.1 K/mm3 (0.0-0.1) 07/19/17 08:18 Seg Neutrophils % 79.0 % (40.0-70.0) H 07/19/17 08:18 Seg Neutrophils # 4.6 K/mm3 (1.8-7.7) 07/19/17 08:18 Sodium 138 mmol/L (137-145) 07/19/17 04:00 Potassium 3.7 mmol/L (3.6-5.0) 07/19/17 04:00 Chloride 101.6 mmol/L (98-107) 07/19/17 04:00 Carbon Dioxide 23 mmol/L (22-30) 07/19/17 04:00 Anion Gap 17 mmol/L 07/19/17 04:00 BUN 9 mg/dL (9-20) 07/19/17 04:00 Creatinine 0.5 mg/dL (0.8-1.5) L 07/19/17 04:00 Estimated GFR > 60 ml/min 07/19/17 04:00 BUN/Creatinine Ratio 18.00 % 07/19/17 04:00 Glucose 82 mg/dL (75-100) 07/19/17 04:00 Hemoglobin A1c 4.5 % (4-6) 07/18/17 21:37 Calcium 8.0 mg/dL (8.4-10.2) L 07/19/17 04:00 Iron 32 ug/dL (49-181) L 07/18/17 21:38 TIBC 182.00 mcg/dL (250-450) L 07/18/17 21:38 % Saturation 17.58 % 07/18/17 21:38 Transferrin 130 mg/dl (180-329) L 07/18/17 21:38 Total Bilirubin 0.60 mg/dL (0.1-1.2) 07/19/17 04:00 Direct Bilirubin 0.2 mg/dL (0-0.2) 07/18/17 14:45 Indirect Bilirubin 0.4 mg/dL 07/18/17 14:45 AST 25 units/L (5-40) 07/19/17 04:00 ALT 22 units/L (7-56) 07/19/17 04:00 Alkaline Phosphatase 74 units/L (35-129) 07/19/17 04:00 Ammonia 28.0 umol/L (25-60) 07/18/17 14:45 Total Creatine Kinase 88 units/L (55-170) 07/19/17 08:18 CK-MB (CK-2) 3.0 ng/mL (0.0-4.0) 07/19/17 08:18 CK-MB (CK-2) Rel Index 3.4 (0-4) 07/19/17 08:18 Troponin T < 0.010 ng/mL (0.00-0.029) 07/19/17 08:18 Total Protein 5.7 g/dL (6.3-8.2) L 07/19/17 04:00 Albumin 2.9 g/dL (3.9-5) L 07/19/17 04:00 Albumin/Globulin Ratio 1.0 % 07/19/17 04:00 Vitamin B12 510.9 pg/mL (211-911) 07/18/17 21:39 Urine Color Straw (Yellow) 07/18/17 14:39 Urine Turbidity Clear (Clear) 07/18/17 14:39 Urine pH 6.0 (5.0-7.0) 07/18/17 14:39 Ur Specific [place] 1.010 (1.003-1.030) 07/18/17 14:39 Urine Protein <15 mg/dl mg/dL (Negative) 07/18/17 14:39 Urine Glucose (UA) Neg mg/dL (Negative) 07/18/17 14:39 Urine Ketones Neg mg/dL (Negative) 07/18/17 14:39 Urine Blood Neg (Negative) 07/18/17 14:39 Urine Nitrite Neg (Negative) 07/18/17 14:39 Urine Bilirubin Neg (Negative) 07/18/17 14:39 Urine Urobilinogen < 2.0 mg/dL (<2.0) 07/18/17 14:39 Ur Leukocyte Esterase Neg (Negative) 07/18/17 14:39 Urine WBC (Auto) < 1.0 /HPF (0.0-6.0) 07/18/17 14:39 Urine RBC (Auto) 1.0 /HPF (0.0-6.0) 07/18/17 14:39 Urine Opiates Screen Presumptive negative 07/18/17 14:39 Urine Methadone Screen Presumptive negative 07/18/17 14:39 Ur Barbiturates Screen Presumptive negative 07/18/17 14:39 Ur Phencyclidine Scrn Presumptive negative 07/18/17 14:39 Ur Amphetamines Screen Presumptive negative 07/18/17 14:39 U Benzodiazepines Scrn Presumptive negative 07/18/17 14:39 Urine Cocaine Screen Presumptive negative 07/18/17 14:39 U Marijuana (THC) Screen Presumptive negative 07/18/17 14:39 Drugs of Abuse Note Disclamer 07/18/17 14:39 Plasma/Serum Alcohol < 0.01 gm% (0-0.07) 07/18/17 14:45
[2017-07-19] MEDS: PEPCID IV SCH ×2 (13:38→21:41)
--- NOTE | 2017-07-19 20:19 | Treadmill Report ---
THALLIUM STRESS TEST LEFT VENTRICLE: Left ventricular chamber size is within normal spread. Perfusion study is suboptimal with extensive motion artifact. No significant reversible defects identified. Gated analysis demonstrates normal left ventricular systolic function, ejection fraction 72%. CONCLUSION: This is a suboptimal perfusion study, but no demonstrable ischemic coronary disease. Clinical correlation is recommended. JOB# [id number] CA/NTS
--- NOTE | 2017-07-20 02:30 | Admit Criteria Form ---
Admission Criteria Documentation: SYNCOPE Clinical Indications for Admission to Inpatient Care ( Place 'X' for any and all applicable criteria): Admission is indicated for syncope and 1 or more of the following(1)(2)(3)(4)(5) (6)(7): [ ]I. Hemodynamic instability [X]II. Suspicion of imminently dangerous cause (eg, subarachnoid hemorrhage, pulmonary embolism) [ ]III. Syncope causing injury requiring hospitalization [ ]IV. Respiratory distress [ ]V. Acute coronary syndrome identified. See Myocardial Infarction or Angina guideline [ ]V. Inpatient admission required rather than observation care (Also use Syncope: Observation Care Criteria as appropriate) because of 1 or more of the following: [ ]1) Cardiac arrhythmias of immediate concern identified or strongly suspected (eg, needs electrophysiologic study) [ ]2) Structural cardiac disorder (eg, aortic stenosis) suspected as cause that requires immediate treatment [ ]3) Neurologic signs or symptoms that are severe or persistent (eg, stroke, seizures, altered mental status) [ ]4) Severe electrolyte abnormalities requiring inpatient care [ ]5) Respiratory symptoms (eg, dyspnea, tachypnea) that are severe or persistent [ ]6) Dehydration that is severe or persistent [ ]7) Continuous intravenous infusion of anticoagulation, platelet inhibitor, vasoactive, or antiarrhythmic medication(15)(16 [ ]8) Pulmonary artery catheter monitoring [ ]9) Temporary pacemaker placement [ ]10) Emergent cardioversion [ ]11) Other condition,treatment,or monitoring requiring inpatient admission Extended stay beyond goal length of stay may be needed for(28) [ ]a) Dangerous arrhythmia(15)(23)(27)(29) [ ]b) Myocardial ischemia [ ]c) Seizure disorder [ ]d) Syncope-related injuries The original [facility] content created by [facility] has been revised. The portions of the content which have been revised are identified through the use of italic text or in bold, and [facility] has neither reviewed nor approved the modified material. All other unmodified content is copyright [facility]. Please see references footnoted in the original [facility] edition 2017 Admission Criteria Met: Yes
[2017-07-20 09:07] LABS: Hematocrit 32.5 % (35.5-45.6); Hemoglobin 10.8 gm/dl (11.8-15.2)
[2017-07-20] MEDS: PEPCID IV SCH (10:00)
[2017-07-20] MEDS: PEPCID PO SCH ×2 (14:44→23:38)
--- NOTE | 2017-07-20 14:51 | Consultation ---
History of Present Illness - Reason for Consult Consult date: 07/20/17 Reason for consult: Mental Health Evaluation Requesting physician: GUALBERTO DRIVER - Chief Complaint Chief complaint: "Etoh" - History of Present Psychiatric Illness The patient was sent to this facility for medical clearance from a psychiatric facility. Per EMS the patient was sent from [facility] for evaluation and medical clearance to [facility]. Today patient is confused during the assessment. He was able to tell me his , but could not tell me his current location and correctly recall 3 numbers (3, 5, 10 ) within 5 mins. Patient poor historian. No gestures of SI/HI's. Medications and Allergies Allergies Allergy/AdvReac Type Severity Reaction Status Date / Time codeine Allergy Unknown Verified 07/18/17 14:10 procaine HCl [From Novocain] Allergy Unknown Verified 07/18/17 14:10 Home Medications Medication Instructions Recorded Confirmed Last Taken Type No Known Home Medications [No 07/18/17 07/18/17 Unknown History Reported Home Medications] Active Meds: Active Medications Acetaminophen (Tylenol) 650 mg PO Q4H PRN PRN Reason: Pain MILD(1-3)/Fever >100.5/CRESPO Bisacodyl (Dulcolax) 10 mg PA QDAY PRN PRN Reason: Constipation unrelieved by MOM Famotidine (Pepcid) 20 mg PO BID RIMA Last Admin: 07/20/17 14:44 Dose: 20 mg Hydromorphone HCl (Dilaudid) 0.5 mg IV Q3H PRN PRN Reason: Pain , Severe (7-10) Sodium Chloride (Nacl 0.9% 1000 Ml) 1,000 mls @ 75 mls/hr IV DIRECT RIMA Last Admin: 07/18/17 21:53 Dose: 75 mls/hr Lorazepam (Ativan) 4 mg IV Q15MIN PRN PRN Reason: CIWA-Ar >25 Stop: 07/23/17 20:49 Last Admin: 07/19/17 20:47 Dose: 4 mg Lorazepam (Ativan) 4 mg IV Q1H PRN PRN Reason: CIWA-Ar 16-25 Last Admin: 07/20/17 14:45 Dose: 4 mg Lorazepam (Ativan) 2 mg IV Q1H PRN PRN Reason: CIWA-Ar 8-15 Last Admin: 07/19/17 16:39 Dose: 2 mg Magnesium Hydroxide (Milk Of Magnesia) 30 ml PO Q4H PRN PRN Reason: Constipation Ondansetron HCl (Zofran) 4 mg IV Q8H PRN PRN Reason: N/V unrelieved by Reglan Oxycodone/Acetaminophen (Percocet 5/325) 1 tab PO Q6H PRN PRN Reason: Pain, Moderate (4-6) Zolpidem Tartrate (Ambien) 5 mg PO QHS PRN PRN Reason: Insomnia Past psychiatric history - Past Medical History Past Medical History: other (Unable to obtain) Past Surgical History: Other (Unable to obtain) - past Psychiatric treatment and history psychiatric treatment history: Per the ER note, patient came from a mental health facility for medical clearance. - Social History Social history: other (Unable to obtain) Mental Status Exam - Vital signs Last Vital Signs Temp 97.6 F 07/20/17 13:00 Pulse 98 H 07/20/17 13:00 Resp 20 07/20/17 13:00 BP 143/84 07/20/17 13:00 Pulse Ox 99 07/20/17 13:00 - Exam Narrative exam: Could not complete MSE, patient is confused. Results Result Diagrams: 07/20/17 08:51 07/19/17 04:00 Abnormal lab results 07/20/17 Range/Units 08:51 Hgb 10.8 L (11.8-15.2) gm/dl Hct 32.5 L (35.5-45.6) % All other labs normal. Assessment and Plan Assessment and plan: Impression: Historical Dx: Per the ER note alcohol abuse. Today patient is confused during the assessment. Patient malodorous on assessment. Patient in restraints. Medical: Alcohol withdrawal syndrome, Syncope Recommendation/Plan: Gather collateral information to help determine proper treatment. Continue CIWA Protocol. Use Ativan per CIWA protocol only. Delirium precautions below. 1. Frequently reorient patient and involve him/her in their care (simple explanations of procedures, tests, medications). 2. Lights on and shades open during daytime hours. 3. Try to avoid unnecessary interruptions to sleep during nighttime hours. 4. Obtain glasses, hearing aids from home if patient uses these at baseline. 5. Avoid medications that may exacerbate delirium (especially narcotics - Percocet use alternative medication for pain if possible, benzodiazepines, barbiturates, ambien, lunesta, and medications with excessive anticholinergic properties). 6. D/C restraints when not indicated.
--- NOTE | 2017-07-20 18:34 | Progress Note ---
Assessment and Plan Assessment and plan: Alcohol withdrawal syndrome. Admitted to Telemetry. Continue CIWA protocol. Thiamine, folic acid. he is getting better. Less confusion, less agitation. Syncope. EF 55-60% Alcohol abuse. Counseled on importance of quitting. History of subdural hematoma. History of frequent falls. Will consult physical therapy when off restraints DVT prophylaxis. SCDs only. No anticoagulation because of history of multiple falls and subdural hematoma. FULL CODE STATUS History Interval history: Still confused, agitated Hospitalist Physical - Physical exam Narrative exam: Gen appearance: Not in acute distress HEENT: Bruises, small hematoma on forehead, wound with 2 jackie on forehead Neck: supple, no JVD, Lungs: Clear to auscultation bilaterally, no crackles or wheezes Heart :S1 and S2 regular, no murmurs, rubs or gallop Abdomen: Soft, non tender, non-distended, normal bowel sounds. Extremities :no edema, no clubbing or cyanosis Neuro: Awake,alert, oriented, tremors of hands, moves all ext - Constitutional Vitals: Temp Pulse Resp BP Pulse Ox 98.1 F 71 20 168/92 98 07/20/17 17:00 07/20/17 17:00 07/20/17 17:00 07/20/17 17:00 07/20/17 17:00 General appearance: Present: no acute distress, well-nourished Results - Labs CBC & Chem 7: 07/20/17 08:51 07/19/17 04:00 Labs: Laboratory Last Values WBC 5.8 K/mm3 (4.5-11.0) 07/19/17 08:18 RBC 2.98 M/mm3 (3.65-5.03) L 07/19/17 08:18 Hgb 10.8 gm/dl (11.8-15.2) L 07/20/17 08:51 Hct 32.5 % (35.5-45.6) L 07/20/17 08:51 MCV 103 fl (84-94) H 07/19/17 08:18 MCH 35 pg (28-32) H 07/19/17 08:18 MCHC 34 % (32-34) 07/19/17 08:18 RDW 12.6 % (13.2-15.2) L 07/19/17 08:18 Plt Count 318 K/mm3 (140-440) 07/19/17 08:18 Lymph % (Auto) 7.1 % (13.4-35.0) L 07/19/17 08:18 [place] % (Auto) 11.1 % (0.0-7.3) H 07/19/17 08:18 Eos % (Auto) 1.6 % (0.0-4.3) 07/19/17 08:18 Baso % (Auto) 1.2 % (0.0-1.8) 07/19/17 08:18 Lymph # 0.4 K/mm3 (1.2-5.4) L 07/19/17 08:18 [place] # 0.6 K/mm3 (0.0-0.8) 07/19/17 08:18 Eos # 0.1 K/mm3 (0.0-0.4) 07/19/17 08:18 Baso # 0.1 K/mm3 (0.0-0.1) 07/19/17 08:18 Seg Neutrophils % 79.0 % (40.0-70.0) H 07/19/17 08:18 Seg Neutrophils # 4.6 K/mm3 (1.8-7.7) 07/19/17 08:18 Sodium 138 mmol/L (137-145) 07/19/17 04:00 Potassium 3.7 mmol/L (3.6-5.0) 07/19/17 04:00 Chloride 101.6 mmol/L (98-107) 07/19/17 04:00 Carbon Dioxide 23 mmol/L (22-30) 07/19/17 04:00 Anion Gap 17 mmol/L 07/19/17 04:00 BUN 9 mg/dL (9-20) 07/19/17 04:00 Creatinine 0.5 mg/dL (0.8-1.5) L 07/19/17 04:00 Estimated GFR > 60 ml/min 07/19/17 04:00 BUN/Creatinine Ratio 18.00 % 07/19/17 04:00 Glucose 82 mg/dL (75-100) 07/19/17 04:00 Hemoglobin A1c 4.5 % (4-6) 07/18/17 21:37 Calcium 8.0 mg/dL (8.4-10.2) L 07/19/17 04:00 Iron 32 ug/dL (49-181) L 07/18/17 21:38 TIBC 182.00 mcg/dL (250-450) L 07/18/17 21:38 % Saturation 17.58 % 07/18/17 21:38 Transferrin 130 mg/dl (180-329) L 07/18/17 21:38 Total Bilirubin 0.60 mg/dL (0.1-1.2) 07/19/17 04:00 Direct Bilirubin 0.2 mg/dL (0-0.2) 07/18/17 14:45 Indirect Bilirubin 0.4 mg/dL 07/18/17 14:45 AST 25 units/L (5-40) 07/19/17 04:00 ALT 22 units/L (7-56) 07/19/17 04:00 Alkaline Phosphatase 74 units/L (35-129) 07/19/17 04:00 Ammonia 28.0 umol/L (25-60) 07/18/17 14:45 Total Creatine Kinase 88 units/L (55-170) 07/19/17 08:18 CK-MB (CK-2) 3.0 ng/mL (0.0-4.0) 07/19/17 08:18 CK-MB (CK-2) Rel Index 3.4 (0-4) 07/19/17 08:18 Troponin T < 0.010 ng/mL (0.00-0.029) 07/19/17 08:18 Total Protein 5.7 g/dL (6.3-8.2) L 07/19/17 04:00 Albumin 2.9 g/dL (3.9-5) L 07/19/17 04:00 Albumin/Globulin Ratio 1.0 % 07/19/17 04:00 Vitamin B12 510.9 pg/mL (211-911) 07/18/17 21:39 Urine Color Straw (Yellow) 07/18/17 14:39 Urine Turbidity Clear (Clear) 07/18/17 14:39 Urine pH 6.0 (5.0-7.0) 07/18/17 14:39 Ur Specific [place] 1.010 (1.003-1.030) 07/18/17 14:39 Urine Protein <15 mg/dl mg/dL (Negative) 07/18/17 14:39 Urine Glucose (UA) Neg mg/dL (Negative) 07/18/17 14:39 Urine Ketones Neg mg/dL (Negative) 07/18/17 14:39 Urine Blood Neg (Negative) 07/18/17 14:39 Urine Nitrite Neg (Negative) 07/18/17 14:39 Urine Bilirubin Neg (Negative) 07/18/17 14:39 Urine Urobilinogen < 2.0 mg/dL (<2.0) 07/18/17 14:39 Ur Leukocyte Esterase Neg (Negative) 07/18/17 14:39 Urine WBC (Auto) < 1.0 /HPF (0.0-6.0) 07/18/17 14:39 Urine RBC (Auto) 1.0 /HPF (0.0-6.0) 07/18/17 14:39 Urine Opiates Screen Presumptive negative 07/18/17 14:39 Urine Methadone Screen Presumptive negative 07/18/17 14:39 Ur Barbiturates Screen Presumptive negative 07/18/17 14:39 Ur Phencyclidine Scrn Presumptive negative 07/18/17 14:39 Ur Amphetamines Screen Presumptive negative 07/18/17 14:39 U Benzodiazepines Scrn Presumptive negative 07/18/17 14:39 Urine Cocaine Screen Presumptive negative 07/18/17 14:39 U Marijuana (THC) Screen Presumptive negative 07/18/17 14:39 Drugs of Abuse Note Disclamer 07/18/17 14:39 Plasma/Serum Alcohol < 0.01 gm% (0-0.07) 07/18/17 14:45
[2017-07-21] MEDS: PEPCID PO SCH ×2 (09:30→23:21)
--- NOTE | 2017-07-21 09:57 | Progress Note ---
Subjective - Reason for Consult Consult date: 07/21/17 Reason for consult: Psychiatry Follow-up - Chief Complaint Chief complaint: "Wes anthony" The patient was sent to this facility for medical clearance from a psychiatric facility. Per the ER note, the patient was sent from [facility] for evaluation and medical clearance to go [facility]. Today patient is calm, cooperative and more engaging than yesterday. He stated that he wasn't aware that he was going to [facility]. He stated that he did fall at home and hit his head. Patient does have bruising in his face. He was able to tell me his , his current location, ID the current [place] President, and recall 2 /3 numbers (4,9,12) within 5 mins. He does admit to having an addiction to alcohol (etoh) for more than 40 yrs. He stated that he drink everyday, because he like to drink. He denies having depression symptoms, being irritable, and sleep disturbances. He denies SI/HI's and AVH's. Patient is interested in rehab services once discharged. He denies recreational drug use. He denies having a mental health dx. Mental Status Exam - Vital signs Last Vital Signs Temp 97.8 F 07/21/17 08:54 Pulse 63 07/21/17 08:54 Resp 18 07/21/17 09:35 BP 151/77 07/21/17 08:54 Pulse Ox 98 07/21/17 08:54 - Exam Narrative exam: MSE: Appearance: calm, cooperative Behavior: regular eye contact Speech: regular rate and tone Mood: "okay" Affect: congruent to mood Thought Process: circumstantial Thought Content: denies SI/HI's and AVH's Motor Activity: lying in bed Cognition: A/Ox 3 Insight: variable Judgment: variable Assessment and Plan Impression: Historical Dx: Per the ER note alcohol abuse. Alcohol Use DO. Today patient is calm, cooperative and more engaging than yesterday. Patient in restraints. Medical: Alcohol withdrawal syndrome, Syncope Recommendation/Plan: Continue CIWA Protocol. Use Ativan per CIWA protocol only. Delirium precautions below. Discussed with patient the importance to abstain from alcohol consumption. 1. Frequently reorient patient and involve him/her in their care (simple explanations of procedures, tests, medications). 2. Lights on and shades open during daytime hours. 3. Try to avoid unnecessary interruptions to sleep during nighttime hours. 4. Obtain glasses, hearing aids from home if patient uses these at baseline. 5. Avoid medications that may exacerbate delirium (especially narcotics - Percocet use alternative medication for pain if possible, benzodiazepines, barbiturates, ambien, lunesta, and medications with excessive anticholinergic properties). 6. D/C restraints when not indicated.
[2017-07-21] MEDS: NACL 0.9% 1000 ML 1,000 ML IV SCH (12:45)
--- NOTE | 2017-07-21 16:06 | Progress Note ---
Assessment and Plan Assessment and plan: Alcohol withdrawal syndrome. Admitted to Telemetry. Continue CIWA protocol. Thiamine, folic acid. He is getting better. Less confusion, less agitation. Will discontinue Telemetry. may transfer to medical floor. Syncope. vasovagal. EF 55-60% Alcohol abuse. Counseled on importance of quitting. History of subdural hematoma. History of frequent falls. Will consult physical therapy when off restraints DVT prophylaxis. SCDs only. No anticoagulation because of history of multiple falls and subdural hematoma. FULL CODE STATUS Had family meeting with patient's and son today. To go to [place] when medically stable hopefully in few days. History Interval history: Less confused, less agitated Hospitalist Physical - Physical exam Narrative exam: Gen appearance: Not in acute distress HEENT: Bruises, small hematoma on forehead, wound with 2 jackie on forehead Neck: supple, no JVD, Lungs: Clear to auscultation bilaterally, no crackles or wheezes Heart :S1 and S2 regular, no murmurs, rubs or gallop Abdomen: Soft, non tender, non-distended, normal bowel sounds. Extremities :no edema, no clubbing or cyanosis Neuro: Awake, alert, oriented, less tremors of hands, moves all extremities - Constitutional Vitals: Temp Pulse Resp BP Pulse Ox 97.3 F L 45 L 18 163/85 98 07/21/17 13:42 07/21/17 13:42 07/21/17 13:42 07/21/17 13:42 07/21/17 13:42 General appearance: Present: no acute distress, well-nourished Results - Labs CBC & Chem 7: 07/20/17 08:51 07/19/17 04:00 Labs: Laboratory Last Values WBC 5.8 K/mm3 (4.5-11.0) 07/19/17 08:18 RBC 2.98 M/mm3 (3.65-5.03) L 07/19/17 08:18 Hgb 10.8 gm/dl (11.8-15.2) L 07/20/17 08:51 Hct 32.5 % (35.5-45.6) L 07/20/17 08:51 MCV 103 fl (84-94) H 07/19/17 08:18 MCH 35 pg (28-32) H 07/19/17 08:18 MCHC 34 % (32-34) 07/19/17 08:18 RDW 12.6 % (13.2-15.2) L 07/19/17 08:18 Plt Count 318 K/mm3 (140-440) 07/19/17 08:18 Lymph % (Auto) 7.1 % (13.4-35.0) L 07/19/17 08:18 [place] % (Auto) 11.1 % (0.0-7.3) H 07/19/17 08:18 Eos % (Auto) 1.6 % (0.0-4.3) 07/19/17 08:18 Baso % (Auto) 1.2 % (0.0-1.8) 07/19/17 08:18 Lymph # 0.4 K/mm3 (1.2-5.4) L 07/19/17 08:18 [place] # 0.6 K/mm3 (0.0-0.8) 07/19/17 08:18 Eos # 0.1 K/mm3 (0.0-0.4) 07/19/17 08:18 Baso # 0.1 K/mm3 (0.0-0.1) 07/19/17 08:18 Seg Neutrophils % 79.0 % (40.0-70.0) H 07/19/17 08:18 Seg Neutrophils # 4.6 K/mm3 (1.8-7.7) 07/19/17 08:18 Sodium 138 mmol/L (137-145) 07/19/17 04:00 Potassium 3.7 mmol/L (3.6-5.0) 07/19/17 04:00 Chloride 101.6 mmol/L (98-107) 07/19/17 04:00 Carbon Dioxide 23 mmol/L (22-30) 07/19/17 04:00 Anion Gap 17 mmol/L 07/19/17 04:00 BUN 9 mg/dL (9-20) 07/19/17 04:00 Creatinine 0.5 mg/dL (0.8-1.5) L 07/19/17 04:00 Estimated GFR > 60 ml/min 07/19/17 04:00 BUN/Creatinine Ratio 18.00 % 07/19/17 04:00 Glucose 82 mg/dL (75-100) 07/19/17 04:00 Hemoglobin A1c 4.5 % (4-6) 07/18/17 21:37 Calcium 8.0 mg/dL (8.4-10.2) L 07/19/17 04:00 Iron 32 ug/dL (49-181) L 07/18/17 21:38 TIBC 182.00 mcg/dL (250-450) L 07/18/17 21:38 % Saturation 17.58 % 07/18/17 21:38 Transferrin 130 mg/dl (180-329) L 07/18/17 21:38 Total Bilirubin 0.60 mg/dL (0.1-1.2) 07/19/17 04:00 Direct Bilirubin 0.2 mg/dL (0-0.2) 07/18/17 14:45 Indirect Bilirubin 0.4 mg/dL 07/18/17 14:45 AST 25 units/L (5-40) 07/19/17 04:00 ALT 22 units/L (7-56) 07/19/17 04:00 Alkaline Phosphatase 74 units/L (35-129) 07/19/17 04:00 Ammonia 28.0 umol/L (25-60) 07/18/17 14:45 Total Creatine Kinase 88 units/L (55-170) 07/19/17 08:18 CK-MB (CK-2) 3.0 ng/mL (0.0-4.0) 07/19/17 08:18 CK-MB (CK-2) Rel Index 3.4 (0-4) 07/19/17 08:18 Troponin T < 0.010 ng/mL (0.00-0.029) 07/19/17 08:18 Total Protein 5.7 g/dL (6.3-8.2) L 07/19/17 04:00 Albumin 2.9 g/dL (3.9-5) L 07/19/17 04:00 Albumin/Globulin Ratio 1.0 % 07/19/17 04:00 Vitamin B12 510.9 pg/mL (211-911) 07/18/17 21:39 Urine Color Straw (Yellow) 07/18/17 14:39 Urine Turbidity Clear (Clear) 07/18/17 14:39 Urine pH 6.0 (5.0-7.0) 07/18/17 14:39 Ur Specific [place] 1.010 (1.003-1.030) 07/18/17 14:39 Urine Protein <15 mg/dl mg/dL (Negative) 07/18/17 14:39 Urine Glucose (UA) Neg mg/dL (Negative) 07/18/17 14:39 Urine Ketones Neg mg/dL (Negative) 07/18/17 14:39 Urine Blood Neg (Negative) 07/18/17 14:39 Urine Nitrite Neg (Negative) 07/18/17 14:39 Urine Bilirubin Neg (Negative) 07/18/17 14:39 Urine Urobilinogen < 2.0 mg/dL (<2.0) 07/18/17 14:39 Ur Leukocyte Esterase Neg (Negative) 07/18/17 14:39 Urine WBC (Auto) < 1.0 /HPF (0.0-6.0) 07/18/17 14:39 Urine RBC (Auto) 1.0 /HPF (0.0-6.0) 07/18/17 14:39 Urine Opiates Screen Presumptive negative 07/18/17 14:39 Urine Methadone Screen Presumptive negative 07/18/17 14:39 Ur Barbiturates Screen Presumptive negative 07/18/17 14:39 Ur Phencyclidine Scrn Presumptive negative 07/18/17 14:39 Ur Amphetamines Screen Presumptive negative 07/18/17 14:39 U Benzodiazepines Scrn Presumptive negative 07/18/17 14:39 Urine Cocaine Screen Presumptive negative 07/18/17 14:39 U Marijuana (THC) Screen Presumptive negative 07/18/17 14:39 Drugs of Abuse Note Disclamer 07/18/17 14:39 Plasma/Serum Alcohol < 0.01 gm% (0-0.07) 07/18/17 14:45
[2017-07-22 08:07] LABS: Hematocrit 31.5 % (35.5-45.6); Hemoglobin 10.7 gm/dl (11.8-15.2); Mean Corpuscular HGB Conc 34 % (32-34); Mean Corpuscular Hemoglobin 35 pg (28-32); Mean Corpuscular Volume 103 fl (84-94); Platelet Count 315 K/mm3 (140-440); Red Blood Count 3.05 M/mm3 (3.65-5.03); Red Cell Distribution Width 12.4 % (13.2-15.2)
[2017-07-22 08:16] LABS: Anion Gap 17 mmol/L; Blood Urea Nitrogen 6 mg/dL (9-20); Calcium 7.9 mg/dL (8.4-10.2); Carbon Dioxide 24 mmol/L (22-30); Chloride 102.1 mmol/L (98-107); Glucose 86 mg/dL (75-100); Sodium 140 mmol/L (137-145)
[2017-07-22 08:54] LABS: Potassium 2.9 mmol/L (3.6-5.0)
[2017-07-22] MEDS ORDERED: K-DUR PO ONE (10:00)
[2017-07-22] MEDS: PEPCID PO SCH ×2 (10:06→22:09)
[2017-07-22] MEDS: KCL 10MEQ/100ML 10 MEQ/100 ML BAG IV SCH ×4 (14:46→22:09)
--- NOTE | 2017-07-22 15:15 | Progress Note ---
Assessment and Plan Assessment and plan: --Hypokalemia; replenished per protocol and monitor levels --Alcohol withdrawal symptoms; continue [facility] protocol Thiamine and folic acid --Syncope; probably secondary to underlying alcohol use, partly vasovagal, fall precautions --chronic alcohol abuse Alcohol withdrawal syndrome. Admitted to Telemetry. Continue [facility] protocol. Thiamine, folic acid. He is getting better. Less confusion, less agitation. Will discontinue Telemetry. may transfer to medical floor. Syncope. vasovagal. EF 55-60% Alcohol abuse. Counseled on importance of quitting. History of subdural hematoma. History of frequent falls. Will consult physical therapy when off restraints DVT prophylaxis. SCDs only. No anticoagulation because of history of multiple falls and subdural hematoma. FULL CODE STATUS Had family meeting with patient's and son today. To go to [place] when medically stable hopefully in few days. History Interval history: Patient seen and evaluated medical effects reviewed Patient is tremulous, confused at times Alert and awake, restrained for safety On [facility] protocol Hospitalist Physical - Constitutional Vitals: Temp Pulse Resp BP Pulse Ox 98.2 F 74 18 160/88 96 07/22/17 12:22 07/22/17 12:22 07/22/17 12:22 07/22/17 12:22 07/22/17 12:22 General appearance: Present: no acute distress, well-nourished - EENT Eyes: Present: PERRL, EOM intact - Neck Neck: Present: supple, normal ROM - Respiratory Respiratory effort: normal Respiratory: bilateral: diminished, negative: rales, rhonchi, wheezing - Cardiovascular Rhythm: regular Heart Sounds: Present: S1 & S2 - Extremities Extremities: no ischemia, No edema - Abdominal General gastrointestinal: soft, non-tender, non-distended, normal bowel sounds - Integumentary Integumentary: Present: clear, warm - Psychiatric Psychiatric: appropriate mood/affect, cooperative - Neurologic Neurologic: CNII-XII intact, moves all extremities Results - Labs CBC & Chem 7: 07/22/17 07:07 07/22/17 07:07 Labs: Laboratory Last Values WBC 5.0 K/mm3 (4.5-11.0) 07/22/17 07:07 RBC 3.05 M/mm3 (3.65-5.03) L 07/22/17 07:07 Hgb 10.7 gm/dl (11.8-15.2) L 07/22/17 07:07 Hct 31.5 % (35.5-45.6) L 07/22/17 07:07 MCV 103 fl (84-94) H 07/22/17 07:07 MCH 35 pg (28-32) H 07/22/17 07:07 MCHC 34 % (32-34) 07/22/17 07:07 RDW 12.4 % (13.2-15.2) L 07/22/17 07:07 Plt Count 315 K/mm3 (140-440) 07/22/17 07:07 Lymph % (Auto) 7.1 % (13.4-35.0) L 07/19/17 08:18 [place] % (Auto) 11.1 % (0.0-7.3) H 07/19/17 08:18 Eos % (Auto) 1.6 % (0.0-4.3) 07/19/17 08:18 Baso % (Auto) 1.2 % (0.0-1.8) 07/19/17 08:18 Lymph # 0.4 K/mm3 (1.2-5.4) L 07/19/17 08:18 [place] # 0.6 K/mm3 (0.0-0.8) 07/19/17 08:18 Eos # 0.1 K/mm3 (0.0-0.4) 07/19/17 08:18 Baso # 0.1 K/mm3 (0.0-0.1) 07/19/17 08:18 Seg Neutrophils % 79.0 % (40.0-70.0) H 07/19/17 08:18 Seg Neutrophils # 4.6 K/mm3 (1.8-7.7) 07/19/17 08:18 Sodium 140 mmol/L (137-145) 07/22/17 07:07 Potassium 2.9 mmol/L (3.6-5.0) L* D 07/22/17 07:07 Chloride 102.1 mmol/L (98-107) 07/22/17 07:07 Carbon Dioxide 24 mmol/L (22-30) 07/22/17 07:07 Anion Gap 17 mmol/L 07/22/17 07:07 BUN 6 mg/dL (9-20) L 07/22/17 07:07 Creatinine 0.4 mg/dL (0.8-1.5) L 07/22/17 07:07 Estimated GFR > 60 ml/min 07/22/17 07:07 BUN/Creatinine Ratio 15.00 % 07/22/17 07:07 Glucose 86 mg/dL (75-100) 07/22/17 07:07 Hemoglobin A1c 4.5 % (4-6) 07/18/17 21:37 Calcium 7.9 mg/dL (8.4-10.2) L 07/22/17 07:07 Iron 32 ug/dL (49-181) L 07/18/17 21:38 TIBC 182.00 mcg/dL (250-450) L 07/18/17 21:38 % Saturation 17.58 % 07/18/17 21:38 Transferrin 130 mg/dl (180-329) L 07/18/17 21:38 Total Bilirubin 0.60 mg/dL (0.1-1.2) 07/19/17 04:00 Direct Bilirubin 0.2 mg/dL (0-0.2) 07/18/17 14:45 Indirect Bilirubin 0.4 mg/dL 07/18/17 14:45 AST 25 units/L (5-40) 07/19/17 04:00 ALT 22 units/L (7-56) 07/19/17 04:00 Alkaline Phosphatase 74 units/L (35-129) 07/19/17 04:00 Ammonia 28.0 umol/L (25-60) 07/18/17 14:45 Total Creatine Kinase 88 units/L (55-170) 07/19/17 08:18 CK-MB (CK-2) 3.0 ng/mL (0.0-4.0) 07/19/17 08:18 CK-MB (CK-2) Rel Index 3.4 (0-4) 07/19/17 08:18 Troponin T < 0.010 ng/mL (0.00-0.029) 07/19/17 08:18 Total Protein 5.7 g/dL (6.3-8.2) L 07/19/17 04:00 Albumin 2.9 g/dL (3.9-5) L 07/19/17 04:00 Albumin/Globulin Ratio 1.0 % 07/19/17 04:00 Vitamin B12 510.9 pg/mL (211-911) 07/18/17 21:39 RBC Folic Acid 462 ng/mL (>280) 07/18/17 21:29 Urine Color Straw (Yellow) 07/18/17 14:39 Urine Turbidity Clear (Clear) 07/18/17 14:39 Urine pH 6.0 (5.0-7.0) 07/18/17 14:39 Ur Specific [place] 1.010 (1.003-1.030) 07/18/17 14:39 Urine Protein <15 mg/dl mg/dL (Negative) 07/18/17 14:39 Urine Glucose (UA) Neg mg/dL (Negative) 07/18/17 14:39 Urine Ketones Neg mg/dL (Negative) 07/18/17 14:39 Urine Blood Neg (Negative) 07/18/17 14:39 Urine Nitrite Neg (Negative) 07/18/17 14:39 Urine Bilirubin Neg (Negative) 07/18/17 14:39 Urine Urobilinogen < 2.0 mg/dL (<2.0) 07/18/17 14:39 Ur Leukocyte Esterase Neg (Negative) 07/18/17 14:39 Urine WBC (Auto) < 1.0 /HPF (0.0-6.0) 07/18/17 14:39 Urine RBC (Auto) 1.0 /HPF (0.0-6.0) 07/18/17 14:39 Urine Opiates Screen Presumptive negative 07/18/17 14:39 Urine Methadone Screen Presumptive negative 07/18/17 14:39 Ur Barbiturates Screen Presumptive negative 07/18/17 14:39 Ur Phencyclidine Scrn Presumptive negative 07/18/17 14:39 Ur Amphetamines Screen Presumptive negative 07/18/17 14:39 U Benzodiazepines Scrn Presumptive negative 07/18/17 14:39 Urine Cocaine Screen Presumptive negative 07/18/17 14:39 U Marijuana (THC) Screen Presumptive negative 07/18/17 14:39 Drugs of Abuse Note Disclamer 07/18/17 14:39 Plasma/Serum Alcohol < 0.01 gm% (0-0.07) 07/18/17 14:45
[2017-07-22 22:39] LABS: Magnesium 1.6 mg/dL (1.7-2.3); Potassium 3.6 mmol/L (3.6-5.0)
[2017-07-23] MEDS: NACL 0.9% 1000 ML 1,000 ML IV SCH (01:47)
[2017-07-23] MEDS ORDERED: HALDOL IM PRN (14:48)
--- NOTE | 2017-07-23 14:48 | Progress Note ---
Subjective - Reason for Consult Consult date: 07/23/17 Reason for consult: Mental Health Evaluation - Chief Complaint Chief complaint: "How are you" The patient was sent to this facility for medical clearance from a psychiatric facility. Per the ER note, the patient was sent from [facility] for evaluation and medical clearance to [facility]. Today patient is calm, cooperative, but confused. He continue to tell me he fell at home before coming to the hospital. He stated that he need to stop drinking, but isn't sure when that may happen. He wasn't able to tell me his current location or the current President. He recalled 1/3 numbers (4,7,11) within 5 mins. Mental Status Exam - Vital signs Last Vital Signs Temp 98.0 F 07/23/17 12:55 Pulse 80 07/23/17 12:55 Resp 80 H 07/23/17 12:55 BP 151/95 07/23/17 12:55 Pulse Ox 98 07/23/17 12:55 - Exam Narrative exam: MSE: Appearance: calm, cooperative Behavior: regular eye contact Speech: regular rate and tone Mood: "okay" Affect: congruent to mood Thought Process: circumstantial Thought Content: denies SI/HI's and AVH's Motor Activity: lying in bed Cognition: A/Ox 1 Insight: limited Judgment: limited Assessment and Plan Impression: Historical Dx: Per the ER note alcohol abuse. Alcohol Use DO. Today patient is calm, cooperative and confused. Patient in restraints. Medical: Alcohol withdrawal syndrome, Syncope Recommendation/Plan: D/C'd [facility]. Initiate Ativan taper. Start Ativan 1 mg PO TID today, 07/24/2017 Ativan 1 mg BID, 07/25/2017 Ativan 1 mg PO once then D/C. Delirium precautions below. Discussed with patient the importance to abstain from alcohol consumption. 1. Frequently reorient patient and involve him/her in their care (simple explanations of procedures, tests, medications). 2. Lights on and shades open during daytime hours. 3. Try to avoid unnecessary interruptions to sleep during nighttime hours. 4. Obtain glasses, hearing aids from home if patient uses these at baseline. 5. Avoid medications that may exacerbate delirium (especially narcotics ( Percocet) - use alternative medication for pain if possible, benzodiazepines - currently being tapered, barbiturates, ambien, lunesta, and medications with excessive anticholinergic properties). 6. D/C restraints when not indicated. 7. Use Haldol 2 mg IM Q6hrs for agitation.
[2017-07-23] MEDS: MAG-OX PO SCH (14:58)
[2017-07-23] MEDS: PEPCID PO SCH ×2 (14:58→22:01)
--- NOTE | 2017-07-23 17:53 | Progress Note ---
Assessment and Plan Assessment and plan: --Hypokalemia; corrected --Hypomagnesemia; replace per protocol --Alcohol withdrawal symptoms; discontinue CIWA protocol Ativan as needed, Thiamine and folic acid --Syncope; probably secondary to underlying alcohol use, partly vasovagal, fall precautions --chronic alcohol abuse; consult the patient once medically stable --Syncope. vasovagal. EF 55-60% --History of frequent falls. Fall precautions, restraint for safety as needed, physical therapy when more alert --DVT prophylaxis. SCDs only. No anticoagulation because of history of subdural hematoma. --FULL CODE STATUS had family meeting with patient's and son 2-3 days ago Discharge planning; possible transfer to [facility] when medically stable Psych following History Interval history: Patient seen and evaluated medical records reviewed Patient is mildly confused and tremulous On CIWA protocol, awaiting psych evaluation Patient is restrained as needed for safety Hospitalist Physical - Constitutional Vitals: Temp Pulse Resp BP Pulse Ox 97.6 F 76 18 154/94 76 L 07/23/17 17:18 07/23/17 17:18 07/23/17 17:18 07/23/17 17:18 07/23/17 17:18 General appearance: Present: no acute distress, well-nourished, other ( tremulous. Confused) - EENT Eyes: Present: PERRL, EOM intact - Neck Neck: Present: supple, normal ROM - Respiratory Respiratory effort: normal Respiratory: negative: rales, rhonchi, wheezing - Cardiovascular Rhythm: regular Heart Sounds: Present: S1 & S2 - Extremities Extremities: no ischemia, No edema - Abdominal General gastrointestinal: soft, non-tender, non-distended, normal bowel sounds - Integumentary Integumentary: Present: clear, warm - Psychiatric Psychiatric: other (confused) - Neurologic Neurologic: moves all extremities Results - Labs CBC & Chem 7: 07/22/17 07:07 07/22/17 21:34 Labs: Laboratory Last Values WBC 5.0 K/mm3 (4.5-11.0) 07/22/17 07:07 RBC 3.05 M/mm3 (3.65-5.03) L 07/22/17 07:07 Hgb 10.7 gm/dl (11.8-15.2) L 07/22/17 07:07 Hct 31.5 % (35.5-45.6) L 07/22/17 07:07 MCV 103 fl (84-94) H 07/22/17 07:07 MCH 35 pg (28-32) H 07/22/17 07:07 MCHC 34 % (32-34) 07/22/17 07:07 RDW 12.4 % (13.2-15.2) L 07/22/17 07:07 Plt Count 315 K/mm3 (140-440) 07/22/17 07:07 Lymph % (Auto) 7.1 % (13.4-35.0) L 07/19/17 08:18 [place] % (Auto) 11.1 % (0.0-7.3) H 07/19/17 08:18 Eos % (Auto) 1.6 % (0.0-4.3) 07/19/17 08:18 Baso % (Auto) 1.2 % (0.0-1.8) 07/19/17 08:18 Lymph # 0.4 K/mm3 (1.2-5.4) L 07/19/17 08:18 [place] # 0.6 K/mm3 (0.0-0.8) 07/19/17 08:18 Eos # 0.1 K/mm3 (0.0-0.4) 07/19/17 08:18 Baso # 0.1 K/mm3 (0.0-0.1) 07/19/17 08:18 Seg Neutrophils % 79.0 % (40.0-70.0) H 07/19/17 08:18 Seg Neutrophils # 4.6 K/mm3 (1.8-7.7) 07/19/17 08:18 Sodium 140 mmol/L (137-145) 07/22/17 07:07 Potassium 3.6 mmol/L (3.6-5.0) D 07/22/17 21:34 Chloride 102.1 mmol/L (98-107) 07/22/17 07:07 Carbon Dioxide 24 mmol/L (22-30) 07/22/17 07:07 Anion Gap 17 mmol/L 07/22/17 07:07 BUN 6 mg/dL (9-20) L 07/22/17 07:07 Creatinine 0.4 mg/dL (0.8-1.5) L 07/22/17 07:07 Estimated GFR > 60 ml/min 07/22/17 07:07 BUN/Creatinine Ratio 15.00 % 07/22/17 07:07 Glucose 86 mg/dL (75-100) 07/22/17 07:07 Hemoglobin A1c 4.5 % (4-6) 07/18/17 21:37 Calcium 7.9 mg/dL (8.4-10.2) L 07/22/17 07:07 Magnesium 1.60 mg/dL (1.7-2.3) L 07/22/17 21:34 Iron 32 ug/dL (49-181) L 07/18/17 21:38 TIBC 182.00 mcg/dL (250-450) L 07/18/17 21:38 % Saturation 17.58 % 07/18/17 21:38 Transferrin 130 mg/dl (180-329) L 07/18/17 21:38 Total Bilirubin 0.60 mg/dL (0.1-1.2) 07/19/17 04:00 Direct Bilirubin 0.2 mg/dL (0-0.2) 07/18/17 14:45 Indirect Bilirubin 0.4 mg/dL 07/18/17 14:45 AST 25 units/L (5-40) 07/19/17 04:00 ALT 22 units/L (7-56) 07/19/17 04:00 Alkaline Phosphatase 74 units/L (35-129) 07/19/17 04:00 Ammonia 28.0 umol/L (25-60) 07/18/17 14:45 Total Creatine Kinase 88 units/L (55-170) 07/19/17 08:18 CK-MB (CK-2) 3.0 ng/mL (0.0-4.0) 07/19/17 08:18 CK-MB (CK-2) Rel Index 3.4 (0-4) 07/19/17 08:18 Troponin T < 0.010 ng/mL (0.00-0.029) 07/19/17 08:18 Total Protein 5.7 g/dL (6.3-8.2) L 07/19/17 04:00 Albumin 2.9 g/dL (3.9-5) L 07/19/17 04:00 Albumin/Globulin Ratio 1.0 % 07/19/17 04:00 Vitamin B12 510.9 pg/mL (211-911) 07/18/17 21:39 RBC Folic Acid 462 ng/mL (>280) 07/18/17 21:29 Urine Color Straw (Yellow) 07/18/17 14:39 Urine Turbidity Clear (Clear) 07/18/17 14:39 Urine pH 6.0 (5.0-7.0) 07/18/17 14:39 Ur Specific [place] 1.010 (1.003-1.030) 07/18/17 14:39 Urine Protein <15 mg/dl mg/dL (Negative) 07/18/17 14:39 Urine Glucose (UA) Neg mg/dL (Negative) 07/18/17 14:39 Urine Ketones Neg mg/dL (Negative) 07/18/17 14:39 Urine Blood Neg (Negative) 07/18/17 14:39 Urine Nitrite Neg (Negative) 07/18/17 14:39 Urine Bilirubin Neg (Negative) 07/18/17 14:39 Urine Urobilinogen < 2.0 mg/dL (<2.0) 07/18/17 14:39 Ur Leukocyte Esterase Neg (Negative) 07/18/17 14:39 Urine WBC (Auto) < 1.0 /HPF (0.0-6.0) 07/18/17 14:39 Urine RBC (Auto) 1.0 /HPF (0.0-6.0) 07/18/17 14:39 Urine Opiates Screen Presumptive negative 07/18/17 14:39 Urine Methadone Screen Presumptive negative 07/18/17 14:39 Ur Barbiturates Screen Presumptive negative 07/18/17 14:39 Ur Phencyclidine Scrn Presumptive negative 07/18/17 14:39 Ur Amphetamines Screen Presumptive negative 07/18/17 14:39 U Benzodiazepines Scrn Presumptive negative 07/18/17 14:39 Urine Cocaine Screen Presumptive negative 07/18/17 14:39 U Marijuana (THC) Screen Presumptive negative 07/18/17 14:39 Drugs of Abuse Note Disclamer 07/18/17 14:39 Plasma/Serum Alcohol < 0.01 gm% (0-0.07) 07/18/17 14:45
[2017-07-23] MEDS: ATIVAN PO SCH (22:01)
[2017-07-24] MEDS: NACL 0.9% 1000 ML 1,000 ML IV SCH ×2 (02:19→19:33)
[2017-07-24 07:20] LABS: Magnesium 1.8 mg/dL (1.7-2.3); Phosphorous 3.5 mg/dL (2.5-4.5); Potassium 3.3 mmol/L (3.6-5.0)
[2017-07-24] MEDS ORDERED: K-DUR PO ONE (08:37)
--- NOTE | 2017-07-24 08:38 | Progress Note ---
Assessment and Plan Assessment and plan: --Hypokalemia; replenish per protocol and monitor levels --Hypomagnesemia; corrected --Alcohol withdrawal symptoms; discontinue CIWA protocol Ativan as needed, Thiamine and folic acid --Syncope; probably secondary to underlying alcohol use, partly vasovagal, fall precautions --chronic alcohol abuse; consult the patient once medically stable --Syncope. vasovagal. EF 55-60% --History of frequent falls. Fall precautions, restraint for safety as needed, physical therapy when more alert --DVT prophylaxis. SCDs only. No anticoagulation because of history of subdural hematoma. --FULL CODE STATUS had family meeting with patient's and son last week Discharge planning; possible transfer to [place] when medically stable Psych following History Interval history: Patient seen and evaluated medical records reviewed Patient feels slightly better, tolerated mild physical therapy Responding to simple questions, confused at times Vital signs reviewed Hospitalist Physical - Constitutional Vitals: Temp Pulse Resp BP Pulse Ox 97.4 F L 60 16 134/87 97 07/24/17 08:09 07/24/17 08:09 07/24/17 08:09 07/24/17 08:09 07/24/17 08:09 General appearance: Present: no acute distress, well-nourished, other ( tremulous. Confused) - EENT Eyes: Present: PERRL, EOM intact - Neck Neck: Present: supple, normal ROM - Respiratory Respiratory effort: normal Respiratory: bilateral: diminished, negative: rales, rhonchi, wheezing - Cardiovascular Rhythm: regular Heart Sounds: Present: S1 & S2 - Extremities Extremities: no ischemia, No edema - Abdominal General gastrointestinal: soft, non-tender, non-distended, normal bowel sounds - Integumentary Integumentary: Present: clear, warm - Psychiatric Psychiatric: appropriate mood/affect, other (confused at times) - Neurologic Neurologic: CNII-XII intact, moves all extremities Results - Labs CBC & Chem 7: 07/22/17 07:07 07/24/17 06:13 Labs: Laboratory Last Values WBC 5.0 K/mm3 (4.5-11.0) 07/22/17 07:07 RBC 3.05 M/mm3 (3.65-5.03) L 07/22/17 07:07 Hgb 10.7 gm/dl (11.8-15.2) L 07/22/17 07:07 Hct 31.5 % (35.5-45.6) L 07/22/17 07:07 MCV 103 fl (84-94) H 07/22/17 07:07 MCH 35 pg (28-32) H 07/22/17 07:07 MCHC 34 % (32-34) 07/22/17 07:07 RDW 12.4 % (13.2-15.2) L 07/22/17 07:07 Plt Count 315 K/mm3 (140-440) 07/22/17 07:07 Lymph % (Auto) 7.1 % (13.4-35.0) L 07/19/17 08:18 [place] % (Auto) 11.1 % (0.0-7.3) H 07/19/17 08:18 Eos % (Auto) 1.6 % (0.0-4.3) 07/19/17 08:18 Baso % (Auto) 1.2 % (0.0-1.8) 07/19/17 08:18 Lymph # 0.4 K/mm3 (1.2-5.4) L 07/19/17 08:18 [place] # 0.6 K/mm3 (0.0-0.8) 07/19/17 08:18 Eos # 0.1 K/mm3 (0.0-0.4) 07/19/17 08:18 Baso # 0.1 K/mm3 (0.0-0.1) 07/19/17 08:18 Seg Neutrophils % 79.0 % (40.0-70.0) H 07/19/17 08:18 Seg Neutrophils # 4.6 K/mm3 (1.8-7.7) 07/19/17 08:18 Sodium 140 mmol/L (137-145) 07/22/17 07:07 Potassium 3.3 mmol/L (3.6-5.0) L 07/24/17 06:13 Chloride 102.1 mmol/L (98-107) 07/22/17 07:07 Carbon Dioxide 24 mmol/L (22-30) 07/22/17 07:07 Anion Gap 17 mmol/L 07/22/17 07:07 BUN 6 mg/dL (9-20) L 07/22/17 07:07 Creatinine 0.4 mg/dL (0.8-1.5) L 07/22/17 07:07 Estimated GFR > 60 ml/min 07/22/17 07:07 BUN/Creatinine Ratio 15.00 % 07/22/17 07:07 Glucose 86 mg/dL (75-100) 07/22/17 07:07 Hemoglobin A1c 4.5 % (4-6) 07/18/17 21:37 Calcium 7.9 mg/dL (8.4-10.2) L 07/22/17 07:07 Phosphorus 3.50 mg/dL (2.5-4.5) 07/24/17 06:13 Magnesium 1.80 mg/dL (1.7-2.3) 07/24/17 06:13 Iron 32 ug/dL (49-181) L 07/18/17 21:38 TIBC 182.00 mcg/dL (250-450) L 07/18/17 21:38 % Saturation 17.58 % 07/18/17 21:38 Transferrin 130 mg/dl (180-329) L 07/18/17 21:38 Total Bilirubin 0.60 mg/dL (0.1-1.2) 07/19/17 04:00 Direct Bilirubin 0.2 mg/dL (0-0.2) 07/18/17 14:45 Indirect Bilirubin 0.4 mg/dL 07/18/17 14:45 AST 25 units/L (5-40) 07/19/17 04:00 ALT 22 units/L (7-56) 07/19/17 04:00 Alkaline Phosphatase 74 units/L (35-129) 07/19/17 04:00 Ammonia 28.0 umol/L (25-60) 07/18/17 14:45 Total Creatine Kinase 88 units/L (55-170) 07/19/17 08:18 CK-MB (CK-2) 3.0 ng/mL (0.0-4.0) 07/19/17 08:18 CK-MB (CK-2) Rel Index 3.4 (0-4) 07/19/17 08:18 Troponin T < 0.010 ng/mL (0.00-0.029) 07/19/17 08:18 Total Protein 5.7 g/dL (6.3-8.2) L 07/19/17 04:00 Albumin 2.9 g/dL (3.9-5) L 07/19/17 04:00 Albumin/Globulin Ratio 1.0 % 07/19/17 04:00 Vitamin B12 510.9 pg/mL (211-911) 07/18/17 21:39 RBC Folic Acid 462 ng/mL (>280) 07/18/17 21:29 Urine Color Straw (Yellow) 07/18/17 14:39 Urine Turbidity Clear (Clear) 07/18/17 14:39 Urine pH 6.0 (5.0-7.0) 07/18/17 14:39 Ur Specific [place] 1.010 (1.003-1.030) 07/18/17 14:39 Urine Protein <15 mg/dl mg/dL (Negative) 07/18/17 14:39 Urine Glucose (UA) Neg mg/dL (Negative) 07/18/17 14:39 Urine Ketones Neg mg/dL (Negative) 07/18/17 14:39 Urine Blood Neg (Negative) 07/18/17 14:39 Urine Nitrite Neg (Negative) 07/18/17 14:39 Urine Bilirubin Neg (Negative) 07/18/17 14:39 Urine Urobilinogen < 2.0 mg/dL (<2.0) 07/18/17 14:39 Ur Leukocyte Esterase Neg (Negative) 07/18/17 14:39 Urine WBC (Auto) < 1.0 /HPF (0.0-6.0) 07/18/17 14:39 Urine RBC (Auto) 1.0 /HPF (0.0-6.0) 07/18/17 14:39 Urine Opiates Screen Presumptive negative 07/18/17 14:39 Urine Methadone Screen Presumptive negative 07/18/17 14:39 Ur Barbiturates Screen Presumptive negative 07/18/17 14:39 Ur Phencyclidine Scrn Presumptive negative 07/18/17 14:39 Ur Amphetamines Screen Presumptive negative 07/18/17 14:39 U Benzodiazepines Scrn Presumptive negative 07/18/17 14:39 Urine Cocaine Screen Presumptive negative 07/18/17 14:39 U Marijuana (THC) Screen Presumptive negative 07/18/17 14:39 Drugs of Abuse Note Disclamer 07/18/17 14:39 Plasma/Serum Alcohol < 0.01 gm% (0-0.07) 07/18/17 14:45
[2017-07-24] MEDS: ATIVAN PO SCH ×3 (10:13→22:46)
[2017-07-24] MEDS: MAG-OX PO SCH (10:14)
[2017-07-24] MEDS: PEPCID PO SCH ×2 (10:14→22:46)
--- NOTE | 2017-07-24 14:47 | Progress Note ---
Subjective - Reason for Consult Consult date: 07/24/17 Reason for consult: Mental Health Evaluation - Chief Complaint Chief complaint: "Hello" The patient was sent to this facility for medical clearance from a psychiatric facility. Per the ER note, the patient was sent from [facility] for evaluation and medical clearance to go [place]. Today patient is calm, but confused during the assessment. The patient could not recall any numbers or tell me his . He was able to do these things yesterday. I spoke with his son Stew Ventura and he stated that his father has been declining since his last fall at home. He reported that his father's last drink was 06 Jul 2017. His son would like to take his father to [place] once medically clear for rehab services. Mental Status Exam - Vital signs Last Vital Signs Temp 97.4 F L 07/24/17 08:09 Pulse 60 07/24/17 08:09 Resp 16 07/24/17 08:09 BP 134/87 07/24/17 08:09 Pulse Ox 97 07/24/17 08:09 - Exam Narrative exam: MSE: Appearance: calm, cooperative Behavior: regular eye contact Speech: regular rate and tone Mood: unable to assess Affect: flat Thought Process: unable to assess Thought Content: no gestures SI/HI's and AVH's Motor Activity: lying in bed Cognition: A/Ox 1 Insight: limited Judgment: limited Assessment and Plan Impression: Historical Dx: Per the ER note alcohol abuse. Alcohol Use DO. Today patient is calm, but confused. Patient in restraints. Medical: Alcohol withdrawal syndrome, Syncope Recommendation/Plan: Delirium precautions below. Discussed with patient and family the importance to abstain from alcohol consumption. 1. Frequently reorient patient and involve him/her in their care (simple explanations of procedures, tests, medications). 2. Lights on and shades open during daytime hours. 3. Try to avoid unnecessary interruptions to sleep during nighttime hours. 4. Obtain glasses, hearing aids from home if patient uses these at baseline. 5. Avoid medications that may exacerbate delirium (especially narcotics, benzodiazepines, barbiturates, ambien, lunesta, and medications with excessive anticholinergic properties). 6. D/C restraints when not indicated. 7. Recommend Haldol 2 mg IM Q6hrs for agitation.
[2017-07-25] MEDS: ATIVAN PO SCH ×2 (11:35→22:10)
[2017-07-25] MEDS: PEPCID PO SCH ×2 (11:35→22:09)
[2017-07-25] MEDS: MAG-OX PO SCH (11:35)
[2017-07-25] MEDS: NACL 0.9% 1000 ML 1,000 ML IV SCH (17:20)
--- NOTE | 2017-07-25 18:12 | Progress Note ---
Assessment and Plan Assessment and plan: --Hypokalemia; replenish per protocol and monitor levels --Hypomagnesemia; corrected --Alcohol withdrawal symptoms; discontinue CIWA protocol Ativan as needed, Thiamine and folic acid --Syncope; probably secondary to underlying alcohol use, partly vasovagal, fall precautions --chronic alcohol abuse; consult the patient once medically stable --Syncope. vasovagal. EF 55-60% --History of frequent falls. Fall precautions, restraint for safety as needed, physical therapy when more alert --DVT prophylaxis. SCDs only. No anticoagulation because of history of subdural hematoma. --FULL CODE STATUS had family meeting with patient's and son last week Discharge planning; possible transfer to [place] when medically stable Psych following History Interval history: Patient seen and evaluated medical records reviewed Patient feels slightly better, Hospitalist Physical - Constitutional Vitals: Temp Pulse Resp BP Pulse Ox 97.6 F 58 L 19 147/78 99 07/25/17 16:13 07/25/17 16:13 07/25/17 16:13 07/25/17 16:13 07/25/17 16:13 General appearance: Present: no acute distress, well-nourished, other ( tremulous. Confused) - EENT Eyes: Present: PERRL, EOM intact - Neck Neck: Present: supple, normal ROM - Respiratory Respiratory effort: normal Respiratory: negative: rales, rhonchi, wheezing - Cardiovascular Rhythm: regular Heart Sounds: Present: S1 & S2 - Extremities Extremities: no ischemia, No edema - Abdominal General gastrointestinal: soft, non-tender, non-distended, normal bowel sounds - Integumentary Integumentary: Present: clear, warm - Psychiatric Psychiatric: other (confused) - Neurologic Neurologic: moves all extremities Results - Labs CBC & Chem 7: 07/22/17 07:07 07/25/17 05:18 Labs: Laboratory Last Values WBC 5.0 K/mm3 (4.5-11.0) 07/22/17 07:07 RBC 3.05 M/mm3 (3.65-5.03) L 07/22/17 07:07 Hgb 10.7 gm/dl (11.8-15.2) L 07/22/17 07:07 Hct 31.5 % (35.5-45.6) L 07/22/17 07:07 MCV 103 fl (84-94) H 07/22/17 07:07 MCH 35 pg (28-32) H 07/22/17 07:07 MCHC 34 % (32-34) 07/22/17 07:07 RDW 12.4 % (13.2-15.2) L 07/22/17 07:07 Plt Count 315 K/mm3 (140-440) 07/22/17 07:07 Lymph % (Auto) 7.1 % (13.4-35.0) L 07/19/17 08:18 [place] % (Auto) 11.1 % (0.0-7.3) H 07/19/17 08:18 Eos % (Auto) 1.6 % (0.0-4.3) 07/19/17 08:18 Baso % (Auto) 1.2 % (0.0-1.8) 07/19/17 08:18 Lymph # 0.4 K/mm3 (1.2-5.4) L 07/19/17 08:18 [place] # 0.6 K/mm3 (0.0-0.8) 07/19/17 08:18 Eos # 0.1 K/mm3 (0.0-0.4) 07/19/17 08:18 Baso # 0.1 K/mm3 (0.0-0.1) 07/19/17 08:18 Seg Neutrophils % 79.0 % (40.0-70.0) H 07/19/17 08:18 Seg Neutrophils # 4.6 K/mm3 (1.8-7.7) 07/19/17 08:18 Sodium 140 mmol/L (137-145) 07/22/17 07:07 Potassium 3.6 mmol/L (3.6-5.0) 07/25/17 05:18 Chloride 102.1 mmol/L (98-107) 07/22/17 07:07 Carbon Dioxide 24 mmol/L (22-30) 07/22/17 07:07 Anion Gap 17 mmol/L 07/22/17 07:07 BUN 6 mg/dL (9-20) L 07/22/17 07:07 Creatinine 0.4 mg/dL (0.8-1.5) L 07/22/17 07:07 Estimated GFR > 60 ml/min 07/22/17 07:07 BUN/Creatinine Ratio 15.00 % 07/22/17 07:07 Glucose 86 mg/dL (75-100) 07/22/17 07:07 Hemoglobin A1c 4.5 % (4-6) 07/18/17 21:37 Calcium 7.9 mg/dL (8.4-10.2) L 07/22/17 07:07 Phosphorus 3.50 mg/dL (2.5-4.5) 07/24/17 06:13 Magnesium 1.80 mg/dL (1.7-2.3) 07/24/17 06:13 Iron 32 ug/dL (49-181) L 07/18/17 21:38 TIBC 182.00 mcg/dL (250-450) L 07/18/17 21:38 % Saturation 17.58 % 07/18/17 21:38 Transferrin 130 mg/dl (180-329) L 07/18/17 21:38 Total Bilirubin 0.60 mg/dL (0.1-1.2) 07/19/17 04:00 Direct Bilirubin 0.2 mg/dL (0-0.2) 07/18/17 14:45 Indirect Bilirubin 0.4 mg/dL 07/18/17 14:45 AST 25 units/L (5-40) 07/19/17 04:00 ALT 22 units/L (7-56) 07/19/17 04:00 Alkaline Phosphatase 74 units/L (35-129) 07/19/17 04:00 Ammonia 28.0 umol/L (25-60) 07/18/17 14:45 Total Creatine Kinase 88 units/L (55-170) 07/19/17 08:18 CK-MB (CK-2) 3.0 ng/mL (0.0-4.0) 07/19/17 08:18 CK-MB (CK-2) Rel Index 3.4 (0-4) 07/19/17 08:18 Troponin T < 0.010 ng/mL (0.00-0.029) 07/19/17 08:18 Total Protein 5.7 g/dL (6.3-8.2) L 07/19/17 04:00 Albumin 2.9 g/dL (3.9-5) L 07/19/17 04:00 Albumin/Globulin Ratio 1.0 % 07/19/17 04:00 Vitamin B12 510.9 pg/mL (211-911) 07/18/17 21:39 RBC Folic Acid 462 ng/mL (>280) 07/18/17 21:29 Urine Color Straw (Yellow) 07/18/17 14:39 Urine Turbidity Clear (Clear) 07/18/17 14:39 Urine pH 6.0 (5.0-7.0) 07/18/17 14:39 Ur Specific [place] 1.010 (1.003-1.030) 07/18/17 14:39 Urine Protein <15 mg/dl mg/dL (Negative) 07/18/17 14:39 Urine Glucose (UA) Neg mg/dL (Negative) 07/18/17 14:39 Urine Ketones Neg mg/dL (Negative) 07/18/17 14:39 Urine Blood Neg (Negative) 07/18/17 14:39 Urine Nitrite Neg (Negative) 07/18/17 14:39 Urine Bilirubin Neg (Negative) 07/18/17 14:39 Urine Urobilinogen < 2.0 mg/dL (<2.0) 07/18/17 14:39 Ur Leukocyte Esterase Neg (Negative) 07/18/17 14:39 Urine WBC (Auto) < 1.0 /HPF (0.0-6.0) 07/18/17 14:39 Urine RBC (Auto) 1.0 /HPF (0.0-6.0) 07/18/17 14:39 Urine Opiates Screen Presumptive negative 07/18/17 14:39 Urine Methadone Screen Presumptive negative 07/18/17 14:39 Ur Barbiturates Screen Presumptive negative 07/18/17 14:39 Ur Phencyclidine Scrn Presumptive negative 07/18/17 14:39 Ur Amphetamines Screen Presumptive negative 07/18/17 14:39 U Benzodiazepines Scrn Presumptive negative 07/18/17 14:39 Urine Cocaine Screen Presumptive negative 07/18/17 14:39 U Marijuana (THC) Screen Presumptive negative 07/18/17 14:39 Drugs of Abuse Note Disclamer 07/18/17 14:39 Plasma/Serum Alcohol < 0.01 gm% (0-0.07) 07/18/17 14:45
[2017-07-26] MEDS: HALDOL IM PRN ×2 (05:05→20:56)
[2017-07-26] MEDS: NACL 0.9% 1000 ML 1,000 ML IV SCH ×2 (05:17→20:55)
[2017-07-26] MEDS ORDERED: ATIVAN PO ONE (10:00)
[2017-07-26] MEDS: PEPCID PO SCH ×2 (10:37→22:34)
[2017-07-26] MEDS: MAG-OX PO SCH (10:37)
--- NOTE | 2017-07-26 17:33 | Progress Note ---
Assessment and Plan Assessment and plan: --Hypokalemia; corrected --Hypomagnesemia; corrected --Alcohol withdrawal symptoms; discontinue CIWA protocol Ativan as needed, Thiamine and folic acid --Syncope; probably secondary to underlying alcohol use, partly vasovagal, fall precautions --chronic alcohol abuse; consult the patient once medically stable --Syncope. vasovagal.ECHO LVEF 55-60% --History of frequent falls. Fall precautions, restraint for safety as needed, physical therapy when more alert --DVT prophylaxis. SCDs only. No anticoagulation because of history of subdural hematoma. --FULL CODE STATUS had family meeting with patient's and son last week Discharge planning; possible transfer to [place] when medically stable Psych following History Interval history: Patient seen and evaluated, feels slightly better, no agitation or tremulousness Multiple family members to dictate, answers appropriately to simple questions, confused at times Vital signs stable Hospitalist Physical - Constitutional Vitals: Temp Pulse Resp BP Pulse Ox 98.2 F 78 14 135/110 98 07/26/17 09:32 07/26/17 09:32 07/25/17 20:33 07/26/17 09:32 07/26/17 09:32 General appearance: Present: no acute distress, well-nourished, other ( tremulous. Confused) - EENT Eyes: Present: PERRL, EOM intact - Neck Neck: Present: supple, normal ROM, enlarged thyroid - Respiratory Respiratory: negative: rales, rhonchi, wheezing - Cardiovascular Rhythm: regular Heart Sounds: Present: S1 & S2 - Extremities Extremities: no ischemia, pulses intact Peripheral Pulses: within normal limits - Abdominal General gastrointestinal: soft, non-tender, non-distended, normal bowel sounds - Integumentary Integumentary: Present: clear, warm - Psychiatric Psychiatric: appropriate mood/affect, cooperative - Neurologic Neurologic: CNII-XII intact, focal deficits Results - Labs CBC & Chem 7: 07/22/17 07:07 07/25/17 05:18 Labs: Laboratory Last Values WBC 5.0 K/mm3 (4.5-11.0) 07/22/17 07:07 RBC 3.05 M/mm3 (3.65-5.03) L 07/22/17 07:07 Hgb 10.7 gm/dl (11.8-15.2) L 07/22/17 07:07 Hct 31.5 % (35.5-45.6) L 07/22/17 07:07 MCV 103 fl (84-94) H 07/22/17 07:07 MCH 35 pg (28-32) H 07/22/17 07:07 MCHC 34 % (32-34) 07/22/17 07:07 RDW 12.4 % (13.2-15.2) L 07/22/17 07:07 Plt Count 315 K/mm3 (140-440) 07/22/17 07:07 Lymph % (Auto) 7.1 % (13.4-35.0) L 07/19/17 08:18 [place] % (Auto) 11.1 % (0.0-7.3) H 07/19/17 08:18 Eos % (Auto) 1.6 % (0.0-4.3) 07/19/17 08:18 Baso % (Auto) 1.2 % (0.0-1.8) 07/19/17 08:18 Lymph # 0.4 K/mm3 (1.2-5.4) L 07/19/17 08:18 [place] # 0.6 K/mm3 (0.0-0.8) 07/19/17 08:18 Eos # 0.1 K/mm3 (0.0-0.4) 07/19/17 08:18 Baso # 0.1 K/mm3 (0.0-0.1) 07/19/17 08:18 Seg Neutrophils % 79.0 % (40.0-70.0) H 07/19/17 08:18 Seg Neutrophils # 4.6 K/mm3 (1.8-7.7) 07/19/17 08:18 Sodium 140 mmol/L (137-145) 07/22/17 07:07 Potassium 3.6 mmol/L (3.6-5.0) 07/25/17 05:18 Chloride 102.1 mmol/L (98-107) 07/22/17 07:07 Carbon Dioxide 24 mmol/L (22-30) 07/22/17 07:07 Anion Gap 17 mmol/L 07/22/17 07:07 BUN 6 mg/dL (9-20) L 07/22/17 07:07 Creatinine 0.4 mg/dL (0.8-1.5) L 07/22/17 07:07 Estimated GFR > 60 ml/min 07/22/17 07:07 BUN/Creatinine Ratio 15.00 % 07/22/17 07:07 Glucose 86 mg/dL (75-100) 07/22/17 07:07 Hemoglobin A1c 4.5 % (4-6) 07/18/17 21:37 Calcium 7.9 mg/dL (8.4-10.2) L 07/22/17 07:07 Phosphorus 3.50 mg/dL (2.5-4.5) 07/24/17 06:13 Magnesium 1.80 mg/dL (1.7-2.3) 07/24/17 06:13 Iron 32 ug/dL (49-181) L 07/18/17 21:38 TIBC 182.00 mcg/dL (250-450) L 07/18/17 21:38 % Saturation 17.58 % 07/18/17 21:38 Transferrin 130 mg/dl (180-329) L 07/18/17 21:38 Total Bilirubin 0.60 mg/dL (0.1-1.2) 07/19/17 04:00 Direct Bilirubin 0.2 mg/dL (0-0.2) 07/18/17 14:45 Indirect Bilirubin 0.4 mg/dL 07/18/17 14:45 AST 25 units/L (5-40) 07/19/17 04:00 ALT 22 units/L (7-56) 07/19/17 04:00 Alkaline Phosphatase 74 units/L (35-129) 07/19/17 04:00 Ammonia 28.0 umol/L (25-60) 07/18/17 14:45 Total Creatine Kinase 88 units/L (55-170) 07/19/17 08:18 CK-MB (CK-2) 3.0 ng/mL (0.0-4.0) 07/19/17 08:18 CK-MB (CK-2) Rel Index 3.4 (0-4) 07/19/17 08:18 Troponin T < 0.010 ng/mL (0.00-0.029) 07/19/17 08:18 Total Protein 5.7 g/dL (6.3-8.2) L 07/19/17 04:00 Albumin 2.9 g/dL (3.9-5) L 07/19/17 04:00 Albumin/Globulin Ratio 1.0 % 07/19/17 04:00 Vitamin B12 510.9 pg/mL (211-911) 07/18/17 21:39 RBC Folic Acid 462 ng/mL (>280) 07/18/17 21:29 Urine Color Straw (Yellow) 07/18/17 14:39 Urine Turbidity Clear (Clear) 07/18/17 14:39 Urine pH 6.0 (5.0-7.0) 07/18/17 14:39 Ur Specific [place] 1.010 (1.003-1.030) 07/18/17 14:39 Urine Protein <15 mg/dl mg/dL (Negative) 07/18/17 14:39 Urine Glucose (UA) Neg mg/dL (Negative) 07/18/17 14:39 Urine Ketones Neg mg/dL (Negative) 07/18/17 14:39 Urine Blood Neg (Negative) 07/18/17 14:39 Urine Nitrite Neg (Negative) 07/18/17 14:39 Urine Bilirubin Neg (Negative) 07/18/17 14:39 Urine Urobilinogen < 2.0 mg/dL (<2.0) 07/18/17 14:39 Ur Leukocyte Esterase Neg (Negative) 07/18/17 14:39 Urine WBC (Auto) < 1.0 /HPF (0.0-6.0) 07/18/17 14:39 Urine RBC (Auto) 1.0 /HPF (0.0-6.0) 07/18/17 14:39 Urine Opiates Screen Presumptive negative 07/18/17 14:39 Urine Methadone Screen Presumptive negative 07/18/17 14:39 Ur Barbiturates Screen Presumptive negative 07/18/17 14:39 Ur Phencyclidine Scrn Presumptive negative 07/18/17 14:39 Ur Amphetamines Screen Presumptive negative 07/18/17 14:39 U Benzodiazepines Scrn Presumptive negative 07/18/17 14:39 Urine Cocaine Screen Presumptive negative 07/18/17 14:39 U Marijuana (THC) Screen Presumptive negative 07/18/17 14:39 Drugs of Abuse Note Disclamer 07/18/17 14:39 Plasma/Serum Alcohol < 0.01 gm% (0-0.07) 07/18/17 14:45
--- NOTE | 2017-07-27 07:26 | Progress Note ---
Assessment and Plan Assessment and plan: --Alcohol withdrawal symptoms; discontinue CIWA protocol Ativan as needed, Thiamine and folic acid --Hypokalemia; corrected --Hypomagnesemia; corrected --Syncope; probably secondary to underlying alcohol use, partly vasovagal, fall precautions --chronic alcohol abuse; consult the patient once medically stable --Syncope. vasovagal.ECHO LVEF 55-60% --History of frequent falls. Fall precautions, restraint for safety as needed, physical therapy when more alert --DVT prophylaxis. SCDs only. No anticoagulation because of history of subdural hematoma. --Physical therapy as tolerated try to to monitor the patient off restraints today --FULL CODE STATUS Disposition; the patient may be transferred to [facility] when medically stable. Patient is needing intermittent restraints for agitation and for safety History Interval history: Patient feels better, confused, agitated at times requiring restraints for safety Vital signs are stable Hospitalist Physical - Constitutional Vitals: Temp Pulse Resp BP Pulse Ox 98.5 F 102 H 14 124/68 97 07/26/17 19:54 07/26/17 19:54 07/26/17 19:54 07/26/17 19:54 07/26/17 19:54 General appearance: Present: no acute distress, well-nourished, other ( Confused) - EENT Eyes: Present: PERRL, EOM intact - Neck Neck: Present: supple, normal ROM - Respiratory Respiratory effort: normal Respiratory: bilateral: diminished, negative: rales, rhonchi, wheezing - Cardiovascular Rhythm: regular Heart Sounds: Present: S1 & S2 - Extremities Extremities: no ischemia, No edema - Abdominal General gastrointestinal: soft, non-tender, non-distended, normal bowel sounds - Integumentary Integumentary: Present: clear, warm - Psychiatric Psychiatric: agitated, other (confused at times) - Neurologic Neurologic: moves all extremities Results - Labs CBC & Chem 7: 07/22/17 07:07 07/25/17 05:18 Labs: Laboratory Last Values WBC 5.0 K/mm3 (4.5-11.0) 07/22/17 07:07 RBC 3.05 M/mm3 (3.65-5.03) L 07/22/17 07:07 Hgb 10.7 gm/dl (11.8-15.2) L 07/22/17 07:07 Hct 31.5 % (35.5-45.6) L 07/22/17 07:07 MCV 103 fl (84-94) H 07/22/17 07:07 MCH 35 pg (28-32) H 07/22/17 07:07 MCHC 34 % (32-34) 07/22/17 07:07 RDW 12.4 % (13.2-15.2) L 07/22/17 07:07 Plt Count 315 K/mm3 (140-440) 07/22/17 07:07 Lymph % (Auto) 7.1 % (13.4-35.0) L 07/19/17 08:18 [place] % (Auto) 11.1 % (0.0-7.3) H 07/19/17 08:18 Eos % (Auto) 1.6 % (0.0-4.3) 07/19/17 08:18 Baso % (Auto) 1.2 % (0.0-1.8) 07/19/17 08:18 Lymph # 0.4 K/mm3 (1.2-5.4) L 07/19/17 08:18 [place] # 0.6 K/mm3 (0.0-0.8) 07/19/17 08:18 Eos # 0.1 K/mm3 (0.0-0.4) 07/19/17 08:18 Baso # 0.1 K/mm3 (0.0-0.1) 07/19/17 08:18 Seg Neutrophils % 79.0 % (40.0-70.0) H 07/19/17 08:18 Seg Neutrophils # 4.6 K/mm3 (1.8-7.7) 07/19/17 08:18 Sodium 140 mmol/L (137-145) 07/22/17 07:07 Potassium 3.6 mmol/L (3.6-5.0) 07/25/17 05:18 Chloride 102.1 mmol/L (98-107) 07/22/17 07:07 Carbon Dioxide 24 mmol/L (22-30) 07/22/17 07:07 Anion Gap 17 mmol/L 07/22/17 07:07 BUN 6 mg/dL (9-20) L 07/22/17 07:07 Creatinine 0.4 mg/dL (0.8-1.5) L 07/22/17 07:07 Estimated GFR > 60 ml/min 07/22/17 07:07 BUN/Creatinine Ratio 15.00 % 07/22/17 07:07 Glucose 86 mg/dL (75-100) 07/22/17 07:07 Hemoglobin A1c 4.5 % (4-6) 07/18/17 21:37 Calcium 7.9 mg/dL (8.4-10.2) L 07/22/17 07:07 Phosphorus 3.50 mg/dL (2.5-4.5) 07/24/17 06:13 Magnesium 1.80 mg/dL (1.7-2.3) 07/24/17 06:13 Iron 32 ug/dL (49-181) L 07/18/17 21:38 TIBC 182.00 mcg/dL (250-450) L 07/18/17 21:38 % Saturation 17.58 % 07/18/17 21:38 Transferrin 130 mg/dl (180-329) L 07/18/17 21:38 Total Bilirubin 0.60 mg/dL (0.1-1.2) 07/19/17 04:00 Direct Bilirubin 0.2 mg/dL (0-0.2) 07/18/17 14:45 Indirect Bilirubin 0.4 mg/dL 07/18/17 14:45 AST 25 units/L (5-40) 07/19/17 04:00 ALT 22 units/L (7-56) 07/19/17 04:00 Alkaline Phosphatase 74 units/L (35-129) 07/19/17 04:00 Ammonia 28.0 umol/L (25-60) 07/18/17 14:45 Total Creatine Kinase 88 units/L (55-170) 07/19/17 08:18 CK-MB (CK-2) 3.0 ng/mL (0.0-4.0) 07/19/17 08:18 CK-MB (CK-2) Rel Index 3.4 (0-4) 07/19/17 08:18 Troponin T < 0.010 ng/mL (0.00-0.029) 07/19/17 08:18 Total Protein 5.7 g/dL (6.3-8.2) L 07/19/17 04:00 Albumin 2.9 g/dL (3.9-5) L 07/19/17 04:00 Albumin/Globulin Ratio 1.0 % 07/19/17 04:00 Vitamin B12 510.9 pg/mL (211-911) 07/18/17 21:39 RBC Folic Acid 462 ng/mL (>280) 07/18/17 21:29 Urine Color Straw (Yellow) 07/18/17 14:39 Urine Turbidity Clear (Clear) 07/18/17 14:39 Urine pH 6.0 (5.0-7.0) 07/18/17 14:39 Ur Specific [place] 1.010 (1.003-1.030) 07/18/17 14:39 Urine Protein <15 mg/dl mg/dL (Negative) 07/18/17 14:39 Urine Glucose (UA) Neg mg/dL (Negative) 07/18/17 14:39 Urine Ketones Neg mg/dL (Negative) 07/18/17 14:39 Urine Blood Neg (Negative) 07/18/17 14:39 Urine Nitrite Neg (Negative) 07/18/17 14:39 Urine Bilirubin Neg (Negative) 07/18/17 14:39 Urine Urobilinogen < 2.0 mg/dL (<2.0) 07/18/17 14:39 Ur Leukocyte Esterase Neg (Negative) 07/18/17 14:39 Urine WBC (Auto) < 1.0 /HPF (0.0-6.0) 07/18/17 14:39 Urine RBC (Auto) 1.0 /HPF (0.0-6.0) 07/18/17 14:39 Urine Opiates Screen Presumptive negative 07/18/17 14:39 Urine Methadone Screen Presumptive negative 07/18/17 14:39 Ur Barbiturates Screen Presumptive negative 07/18/17 14:39 Ur Phencyclidine Scrn Presumptive negative 07/18/17 14:39 Ur Amphetamines Screen Presumptive negative 07/18/17 14:39 U Benzodiazepines Scrn Presumptive negative 07/18/17 14:39 Urine Cocaine Screen Presumptive negative 07/18/17 14:39 U Marijuana (THC) Screen Presumptive negative 07/18/17 14:39 Drugs of Abuse Note Disclamer 07/18/17 14:39 Plasma/Serum Alcohol < 0.01 gm% (0-0.07) 07/18/17 14:45
[2017-07-27] MEDS: MAG-OX PO SCH (09:56)
[2017-07-27] MEDS: PEPCID PO SCH ×2 (09:56→21:48)
--- NOTE | 2017-07-27 11:00 | Progress Note ---
Subjective - Reason for Consult Consult date: 07/27/17 Reason for consult: Psychiatry Follow-up - Chief Complaint Chief complaint: "Wes anthony" The patient was sent to this facility for medical clearance from a psychiatric facility. Per the ER note, the patient was sent from [facility] for evaluation and medical clearance to go [facility]. Today patient is calm and cooperative during the assessment. Patient is more engaging and was able to tell me his and recall 2/3 numbers (4,9,22) within 5 mins. He stated that he want to stop drinking and look forward to get help through rehab services once discharged. He denies SI/HI's, AVH's, and depression. Mental Status Exam - Vital signs Last Vital Signs Temp 98.8 F 07/27/17 08:07 Pulse 68 07/27/17 08:07 Resp 18 07/27/17 08:07 BP 141/81 07/27/17 08:07 Pulse Ox 98 07/27/17 08:07 - Exam Narrative exam: MSE: Appearance: calm, cooperative Behavior: regular eye contact Speech: regular rate and tone Mood: "feel better" Affect: congruent to mood Thought Process: circumstantial Thought Content: Denies SI/HI's and AVH's Motor Activity: lying in bed Cognition: A/Ox 3 Insight: variable Judgment: variable Assessment and Plan Impression: Historical Dx: Per the ER note alcohol abuse. Alcohol Use DO. Today patient is calm and cooperative. Patient in waist restraint. Patient is improving. Medical: Alcohol withdrawal syndrome, Syncope Recommendation/Plan: Delirium precautions below. Discussed with patient and family the importance to abstain from alcohol consumption. Ativan taper completed. Recommend PHP/rehab services once patient is medically clear. Spoke with his son Stew at [phone] and he would like to take his father to [facility] once discharged 1. Frequently reorient patient and involve him/her in their care (simple explanations of procedures, tests, medications). 2. Lights on and shades open during daytime hours. 3. Try to avoid unnecessary interruptions to sleep during nighttime hours. 4. Obtain glasses, hearing aids from home if patient uses these at baseline. 5. Avoid medications that may exacerbate delirium (especially narcotics, benzodiazepines, barbiturates, ambien, lunesta, and medications with excessive anticholinergic properties). 6. D/C restraints when not indicated. 7. Haldol 2 mg IM Q6hrs for agitation.
[2017-07-27] MEDS: HALDOL IM PRN (20:19)
[2017-07-28 06:34] LABS: Eosinophils % (Auto) 5.4 % (0.0-4.3); Hematocrit 33.1 % (35.5-45.6); Hemoglobin 11.4 gm/dl (11.8-15.2); Mean Corpuscular HGB Conc 34 % (32-34); Mean Corpuscular Hemoglobin 35 pg (28-32); Mean Corpuscular Volume 102 fl (84-94); Platelet Count 251 K/mm3 (140-440); Red Blood Count 3.25 M/mm3 (3.65-5.03); Red Cell Distribution Width 12.3 % (13.2-15.2); White Blood Count 5.8 K/mm3 (4.5-11.0)
[2017-07-28 06:54] LABS: Anion Gap 15 mmol/L; Blood Urea Nitrogen 9 mg/dL (9-20); Calcium 8.4 mg/dL (8.4-10.2); Carbon Dioxide 23 mmol/L (22-30); Chloride 104.1 mmol/L (98-107); Glucose 92 mg/dL (75-100); Potassium 3.2 mmol/L (3.6-5.0); Sodium 139 mmol/L (137-145)
--- NOTE | 2017-07-28 09:29 | Progress Note ---
Assessment and Plan Assessment and plan: --Alcohol withdrawal symptoms; discontinued CIWA protocol Ativan as needed, Thiamine and folic acid --Syncope; probably secondary to underlying alcohol use, partly vasovagal, fall precautions --chronic alcohol abuse --Syncope. Etiology likely vasovagal. ECHO LVEF 55-60% --History of frequent falls. Fall precautions, restraint for safety as needed, physical therapy when more alert --DVT prophylaxis. SCDs only. No anticoagulation because of history of subdural hematoma, alcohol abuse and likely frequent falls. --Physical therapy as tolerated try to to monitor the patient off restraints today --FULL CODE STATUS Disposition; the patient may be transferred to [facility] when medically stable. Patient is needing intermittent restraints for agitation and for safety History Interval history: Patient is confused. Hospitalist Physical - Constitutional Vitals: Temp Pulse Resp BP Pulse Ox 98.2 F 61 20 140/73 98 07/28/17 04:36 07/28/17 04:36 07/28/17 04:36 07/28/17 04:36 07/28/17 04:36 General appearance: Present: no acute distress, well-nourished, other ( Confused) - EENT Eyes: Present: PERRL, EOM intact ENT: hearing intact, clear oral mucosa, dentition normal - Neck Neck: Present: supple, normal ROM - Respiratory Respiratory effort: normal Respiratory: bilateral: CTA - Cardiovascular Rhythm: regular Heart Sounds: Present: S1 & S2. Absent: gallop, rub - Extremities Extremities: no ischemia, No edema, Full ROM - Abdominal General gastrointestinal: soft, non-tender, non-distended, normal bowel sounds - Integumentary Integumentary: Present: clear, warm, dry - Neurologic Neurologic: CNII-XII intact, moves all extremities Results - Labs CBC & Chem 7: 07/28/17 04:27 07/28/17 04:27 Labs: Laboratory Last Values WBC 5.8 K/mm3 (4.5-11.0) 07/28/17 04:27 RBC 3.25 M/mm3 (3.65-5.03) L 07/28/17 04:27 Hgb 11.4 gm/dl (11.8-15.2) L 07/28/17 04:27 Hct 33.1 % (35.5-45.6) L 07/28/17 04:27 MCV 102 fl (84-94) H 07/28/17 04:27 MCH 35 pg (28-32) H 07/28/17 04:27 MCHC 34 % (32-34) 07/28/17 04:27 RDW 12.3 % (13.2-15.2) L 07/28/17 04:27 Plt Count 251 K/mm3 (140-440) 07/28/17 04:27 Lymph % (Auto) 9.3 % (13.4-35.0) L 07/28/17 04:27 [place] % (Auto) 11.9 % (0.0-7.3) H 07/28/17 04:27 Eos % (Auto) 5.4 % (0.0-4.3) H 07/28/17 04:27 Baso % (Auto) 1.0 % (0.0-1.8) 07/28/17 04:27 Lymph # 0.5 K/mm3 (1.2-5.4) L 07/28/17 04:27 [place] # 0.7 K/mm3 (0.0-0.8) 07/28/17 04:27 Eos # 0.3 K/mm3 (0.0-0.4) 07/28/17 04:27 Baso # 0.1 K/mm3 (0.0-0.1) 07/28/17 04:27 Seg Neutrophils % 72.4 % (40.0-70.0) H 07/28/17 04:27 Seg Neutrophils # 4.2 K/mm3 (1.8-7.7) 07/28/17 04:27 Sodium 139 mmol/L (137-145) 07/28/17 04:27 Potassium 3.2 mmol/L (3.6-5.0) L 07/28/17 04:27 Chloride 104.1 mmol/L (98-107) 07/28/17 04:27 Carbon Dioxide 23 mmol/L (22-30) 07/28/17 04:27 Anion Gap 15 mmol/L 07/28/17 04:27 BUN 9 mg/dL (9-20) 07/28/17 04:27 Creatinine 0.5 mg/dL (0.8-1.5) L 07/28/17 04:27 Estimated GFR > 60 ml/min 07/28/17 04:27 BUN/Creatinine Ratio 18.00 % 07/28/17 04:27 Glucose 92 mg/dL (75-100) 07/28/17 04:27 Hemoglobin A1c 4.5 % (4-6) 07/18/17 21:37 Calcium 8.4 mg/dL (8.4-10.2) 07/28/17 04:27 Phosphorus 3.50 mg/dL (2.5-4.5) 07/24/17 06:13 Magnesium 1.80 mg/dL (1.7-2.3) 07/24/17 06:13 Iron 32 ug/dL (49-181) L 07/18/17 21:38 TIBC 182.00 mcg/dL (250-450) L 07/18/17 21:38 % Saturation 17.58 % 07/18/17 21:38 Transferrin 130 mg/dl (180-329) L 07/18/17 21:38 Total Bilirubin 0.60 mg/dL (0.1-1.2) 07/19/17 04:00 Direct Bilirubin 0.2 mg/dL (0-0.2) 07/18/17 14:45 Indirect Bilirubin 0.4 mg/dL 07/18/17 14:45 AST 25 units/L (5-40) 07/19/17 04:00 ALT 22 units/L (7-56) 07/19/17 04:00 Alkaline Phosphatase 74 units/L (35-129) 07/19/17 04:00 Ammonia 28.0 umol/L (25-60) 07/18/17 14:45 Total Creatine Kinase 88 units/L (55-170) 07/19/17 08:18 CK-MB (CK-2) 3.0 ng/mL (0.0-4.0) 07/19/17 08:18 CK-MB (CK-2) Rel Index 3.4 (0-4) 07/19/17 08:18 Troponin T < 0.010 ng/mL (0.00-0.029) 07/19/17 08:18 Total Protein 5.7 g/dL (6.3-8.2) L 07/19/17 04:00 Albumin 2.9 g/dL (3.9-5) L 07/19/17 04:00 Albumin/Globulin Ratio 1.0 % 07/19/17 04:00 Vitamin B12 510.9 pg/mL (211-911) 07/18/17 21:39 RBC Folic Acid 462 ng/mL (>280) 07/18/17 21:29 Urine Color Straw (Yellow) 07/18/17 14:39 Urine Turbidity Clear (Clear) 07/18/17 14:39 Urine pH 6.0 (5.0-7.0) 07/18/17 14:39 Ur Specific [place] 1.010 (1.003-1.030) 07/18/17 14:39 Urine Protein <15 mg/dl mg/dL (Negative) 07/18/17 14:39 Urine Glucose (UA) Neg mg/dL (Negative) 07/18/17 14:39 Urine Ketones Neg mg/dL (Negative) 07/18/17 14:39 Urine Blood Neg (Negative) 07/18/17 14:39 Urine Nitrite Neg (Negative) 07/18/17 14:39 Urine Bilirubin Neg (Negative) 07/18/17 14:39 Urine Urobilinogen < 2.0 mg/dL (<2.0) 07/18/17 14:39 Ur Leukocyte Esterase Neg (Negative) 07/18/17 14:39 Urine WBC (Auto) < 1.0 /HPF (0.0-6.0) 07/18/17 14:39 Urine RBC (Auto) 1.0 /HPF (0.0-6.0) 07/18/17 14:39 Urine Opiates Screen Presumptive negative 07/18/17 14:39 Urine Methadone Screen Presumptive negative 07/18/17 14:39 Ur Barbiturates Screen Presumptive negative 07/18/17 14:39 Ur Phencyclidine Scrn Presumptive negative 07/18/17 14:39 Ur Amphetamines Screen Presumptive negative 07/18/17 14:39 U Benzodiazepines Scrn Presumptive negative 07/18/17 14:39 Urine Cocaine Screen Presumptive negative 07/18/17 14:39 U Marijuana (THC) Screen Presumptive negative 07/18/17 14:39 Drugs of Abuse Note Disclamer 07/18/17 14:39 Plasma/Serum Alcohol < 0.01 gm% (0-0.07) 07/18/17 14:45
--- NOTE | 2017-07-28 09:55 | Progress Note ---
Subjective - Reason for Consult Consult date: 07/28/17 Reason for consult: Psychiatry Follow-up - Chief Complaint Chief complaint: "Good morning" The patient was sent to this facility for medical clearance from a psychiatric facility. Per the ER note, the patient was sent from [facility] for evaluation and medical clearance to go [facility]. Today patient is calm and cooperative during the assessment. Patient was able to ID his family and tell me his . Upon my arrival to his room, he was eating his breakfast with assistance from his . He denies SI/HI's, AVH's, and depression. Patient is willing to attend outpatient rehab services for his alcohol addiction. Patient did receive Haldol prn last night for agitation. Mental Status Exam - Vital signs Last Vital Signs Temp 98.2 F 07/28/17 04:36 Pulse 61 07/28/17 04:36 Resp 20 07/28/17 04:36 BP 140/73 07/28/17 04:36 Pulse Ox 98 07/28/17 04:36 - Exam Narrative exam: MSE: Appearance: calm, cooperative Behavior: regular eye contact Speech: regular rate and tone Mood: "well" Affect: congruent to mood Thought Process: circumstantial Thought Content: Denies SI/HI's and AVH's Motor Activity: lying in bed Cognition: A/Ox 3 Insight: variable Judgment: variable Assessment and Plan Impression: Historical Dx: Per the ER note alcohol abuse. Alcohol Use DO. Today patient is calm and cooperative. Patient in waist restraint. Patient is improving. Medical: Alcohol withdrawal syndrome, Syncope Recommendation/Plan: Delirium precautions below. Discussed with patient and family the importance to abstain from alcohol consumption. Rag Baler involved, patient may need placement for rehab services (PT/OT) once discharged. Recommend PHP/rehab services for the alcohol abuse (Family want to use [facility] resources). Psychiatry sign off this patient, reconsult when indicated. 1. Frequently reorient patient and involve him/her in their care (simple explanations of procedures, tests, medications). 2. Lights on and shades open during daytime hours. 3. Try to avoid unnecessary interruptions to sleep during nighttime hours. 4. Obtain glasses, hearing aids from home if patient uses these at baseline. 5. Avoid medications that may exacerbate delirium (especially narcotics, benzodiazepines, barbiturates, ambien, lunesta, and medications with excessive anticholinergic properties). 6. D/C restraints when not indicated. 7. Haldol 2 mg IM Q6hrs for agitation.
[2017-07-28] MEDS: PEPCID PO SCH ×2 (10:43→22:40)
[2017-07-28] MEDS: MAG-OX PO SCH (10:43)
[2017-07-28] MEDS ORDERED: K-DUR PO ONE (11:00)
[2017-07-28] MEDS: HALDOL IM PRN (14:30)
[2017-07-28] MEDS: AMBIEN PO PRN (22:43)
[2017-07-29 06:33] LABS: Basophils % (Auto) 1.3 % (0.0-1.8); Hematocrit 32.4 % (35.5-45.6); Mean Corpuscular Volume 101 fl (84-94); Platelet Count 234 K/mm3 (140-440); Red Blood Count 3.21 M/mm3 (3.65-5.03); Red Cell Distribution Width 12.6 % (13.2-15.2)
[2017-07-29 06:47] LABS: Hemoglobin 11.1 gm/dl (11.8-15.2); Mean Corpuscular HGB Conc 34 % (32-34); Mean Corpuscular Hemoglobin 34 pg (28-32)
[2017-07-29 06:55] LABS: Blood Urea Nitrogen 11 mg/dL (9-20); Calcium 8.4 mg/dL (8.4-10.2); Carbon Dioxide 23 mmol/L (22-30); Glucose 100 mg/dL (75-100)
[2017-07-29 06:56] LABS: Anion Gap 17 mmol/L; Chloride 105.9 mmol/L (98-107); Potassium 3.6 mmol/L (3.6-5.0); Sodium 142 mmol/L (137-145)
[2017-07-29] MEDS: MAG-OX PO SCH (09:39)
[2017-07-29] MEDS: PEPCID PO SCH ×2 (09:39→21:02)
--- NOTE | 2017-07-29 10:30 | Progress Note ---
Assessment and Plan Assessment and plan: --Alcohol withdrawal symptoms; discontinued CIWA protocol Ativan as needed, Thiamine and folic acid --Syncope; probably secondary to underlying alcohol use, partly vasovagal, fall precautions --chronic alcohol abuse --Syncope. Etiology likely vasovagal. ECHO LVEF 55-60% --History of frequent falls. Fall precautions, restraint for safety as needed, physical therapy when more alert --DVT prophylaxis. SCDs only. No anticoagulation because of history of subdural hematoma, alcohol abuse and likely frequent falls. --Physical therapy as tolerated try to to monitor the patient off restraints today --FULL CODE STATUS Disposition. Patient awaiting placement at SNF History Interval history: Patient is more alert today. Hospitalist Physical - Constitutional Vitals: Temp Pulse Resp BP Pulse Ox 98.5 F 69 18 133/90 97 07/29/17 07:24 07/29/17 07:24 07/29/17 07:24 07/29/17 07:24 07/29/17 07:24 General appearance: Present: no acute distress, well-nourished, other ( Confused) - EENT Eyes: Present: PERRL, EOM intact ENT: hearing intact, clear oral mucosa, dentition normal - Neck Neck: Present: supple, normal ROM - Respiratory Respiratory effort: normal Respiratory: bilateral: CTA - Cardiovascular Rhythm: regular Heart Sounds: Present: S1 & S2. Absent: gallop, rub - Extremities Extremities: no ischemia, No edema, Full ROM - Abdominal General gastrointestinal: soft, non-tender, non-distended, normal bowel sounds - Integumentary Integumentary: Present: clear, warm, dry - Neurologic Neurologic: CNII-XII intact, moves all extremities Results - Labs CBC & Chem 7: 07/29/17 06:15 07/29/17 06:15 Labs: Laboratory Last Values WBC 5.0 K/mm3 (4.5-11.0) 07/29/17 06:15 RBC 3.21 M/mm3 (3.65-5.03) L 07/29/17 06:15 Hgb 11.1 gm/dl (11.8-15.2) L 07/29/17 06:15 Hct 32.4 % (35.5-45.6) L 07/29/17 06:15 MCV 101 fl (84-94) H 07/29/17 06:15 MCH 34 pg (28-32) H 07/29/17 06:15 MCHC 34 % (32-34) 07/29/17 06:15 RDW 12.6 % (13.2-15.2) L 07/29/17 06:15 Plt Count 234 K/mm3 (140-440) 07/29/17 06:15 Lymph % (Auto) 13.1 % (13.4-35.0) L 07/29/17 06:15 [place] % (Auto) 12.4 % (0.0-7.3) H 07/29/17 06:15 Eos % (Auto) 5.0 % (0.0-4.3) H 07/29/17 06:15 Baso % (Auto) 1.3 % (0.0-1.8) 07/29/17 06:15 Lymph # 0.7 K/mm3 (1.2-5.4) L 07/29/17 06:15 [place] # 0.6 K/mm3 (0.0-0.8) 07/29/17 06:15 Eos # 0.3 K/mm3 (0.0-0.4) 07/29/17 06:15 Baso # 0.1 K/mm3 (0.0-0.1) 07/29/17 06:15 Seg Neutrophils % 68.2 % (40.0-70.0) 07/29/17 06:15 Seg Neutrophils # 3.4 K/mm3 (1.8-7.7) 07/29/17 06:15 Sodium 142 mmol/L (137-145) 07/29/17 06:15 Potassium 3.6 mmol/L (3.6-5.0) 07/29/17 06:15 Chloride 105.9 mmol/L (98-107) 07/29/17 06:15 Carbon Dioxide 23 mmol/L (22-30) 07/29/17 06:15 Anion Gap 17 mmol/L 07/29/17 06:15 BUN 11 mg/dL (9-20) 07/29/17 06:15 Creatinine 0.4 mg/dL (0.8-1.5) L 07/29/17 06:15 Estimated GFR > 60 ml/min 07/29/17 06:15 BUN/Creatinine Ratio 27.50 % 07/29/17 06:15 Glucose 100 mg/dL (75-100) 07/29/17 06:15 Hemoglobin A1c 4.5 % (4-6) 07/18/17 21:37 Calcium 8.4 mg/dL (8.4-10.2) 07/29/17 06:15 Phosphorus 3.50 mg/dL (2.5-4.5) 07/24/17 06:13 Magnesium 1.80 mg/dL (1.7-2.3) 07/24/17 06:13 Iron 32 ug/dL (49-181) L 07/18/17 21:38 TIBC 182.00 mcg/dL (250-450) L 07/18/17 21:38 % Saturation 17.58 % 07/18/17 21:38 Transferrin 130 mg/dl (180-329) L 07/18/17 21:38 Total Bilirubin 0.60 mg/dL (0.1-1.2) 07/19/17 04:00 Direct Bilirubin 0.2 mg/dL (0-0.2) 07/18/17 14:45 Indirect Bilirubin 0.4 mg/dL 07/18/17 14:45 AST 25 units/L (5-40) 07/19/17 04:00 ALT 22 units/L (7-56) 07/19/17 04:00 Alkaline Phosphatase 74 units/L (35-129) 07/19/17 04:00 Ammonia 28.0 umol/L (25-60) 07/18/17 14:45 Total Creatine Kinase 88 units/L (55-170) 07/19/17 08:18 CK-MB (CK-2) 3.0 ng/mL (0.0-4.0) 07/19/17 08:18 CK-MB (CK-2) Rel Index 3.4 (0-4) 07/19/17 08:18 Troponin T < 0.010 ng/mL (0.00-0.029) 07/19/17 08:18 Total Protein 5.7 g/dL (6.3-8.2) L 07/19/17 04:00 Albumin 2.9 g/dL (3.9-5) L 07/19/17 04:00 Albumin/Globulin Ratio 1.0 % 07/19/17 04:00 Vitamin B12 510.9 pg/mL (211-911) 07/18/17 21:39 RBC Folic Acid 462 ng/mL (>280) 07/18/17 21:29 Urine Color Straw (Yellow) 07/18/17 14:39 Urine Turbidity Clear (Clear) 07/18/17 14:39 Urine pH 6.0 (5.0-7.0) 07/18/17 14:39 Ur Specific [place] 1.010 (1.003-1.030) 07/18/17 14:39 Urine Protein <15 mg/dl mg/dL (Negative) 07/18/17 14:39 Urine Glucose (UA) Neg mg/dL (Negative) 07/18/17 14:39 Urine Ketones Neg mg/dL (Negative) 07/18/17 14:39 Urine Blood Neg (Negative) 07/18/17 14:39 Urine Nitrite Neg (Negative) 07/18/17 14:39 Urine Bilirubin Neg (Negative) 07/18/17 14:39 Urine Urobilinogen < 2.0 mg/dL (<2.0) 07/18/17 14:39 Ur Leukocyte Esterase Neg (Negative) 07/18/17 14:39 Urine WBC (Auto) < 1.0 /HPF (0.0-6.0) 07/18/17 14:39 Urine RBC (Auto) 1.0 /HPF (0.0-6.0) 07/18/17 14:39 Urine Opiates Screen Presumptive negative 07/18/17 14:39 Urine Methadone Screen Presumptive negative 07/18/17 14:39 Ur Barbiturates Screen Presumptive negative 07/18/17 14:39 Ur Phencyclidine Scrn Presumptive negative 07/18/17 14:39 Ur Amphetamines Screen Presumptive negative 07/18/17 14:39 U Benzodiazepines Scrn Presumptive negative 07/18/17 14:39 Urine Cocaine Screen Presumptive negative 07/18/17 14:39 U Marijuana (THC) Screen Presumptive negative 07/18/17 14:39 Drugs of Abuse Note Disclamer 07/18/17 14:39 Plasma/Serum Alcohol < 0.01 gm% (0-0.07) 07/18/17 14:45
[2017-07-29] MEDS: HALDOL IM PRN ×2 (13:23→18:02)
[2017-07-29] MEDS: AMBIEN PO PRN (21:02)
[2017-07-29] MEDS: TYLENOL PO PRN (21:02)
[2017-07-30] MEDS: HALDOL IM PRN ×2 (02:26→12:39)
[2017-07-30] MEDS: PEPCID PO SCH ×2 (09:45→21:24)
[2017-07-30] MEDS: MAG-OX PO SCH (09:46)
--- NOTE | 2017-07-30 10:24 | Progress Note ---
Assessment and Plan Assessment and plan: --Encephalopathy. Etiology unclear. Alcohol withdrawal should be resolved. Neuro consult. Add Seroquel scheduled 25mg BID --Alcohol withdrawal symptoms; patient has become intermittently agitated. Continue Haldol and Ativan as needed, Thiamine and folic acid --Syncope; probably secondary to underlying alcohol use, partly vasovagal, fall precautions --chronic alcohol abuse --Syncope. Etiology likely vasovagal. ECHO LVEF 55-60% --History of frequent falls. Fall precautions, restraint for safety as needed, physical therapy when more alert --DVT prophylaxis. SCDs only. No anticoagulation because of history of subdural hematoma, alcohol abuse and likely frequent falls. --Physical therapy as tolerated try to to monitor the patient off restraints today --FULL CODE STATUS Disposition. Patient awaiting placement at SNF History Interval history: Patient is more alert today. Hospitalist Physical - Constitutional Vitals: Temp Pulse Resp BP Pulse Ox 98.5 F 69 18 133/90 97 07/29/17 07:24 07/29/17 07:24 07/29/17 21:02 07/29/17 07:24 07/29/17 20:31 General appearance: Present: no acute distress, well-nourished, other ( Confused) - EENT Eyes: Present: PERRL, EOM intact ENT: hearing intact, clear oral mucosa, dentition normal - Neck Neck: Present: supple, normal ROM - Respiratory Respiratory effort: normal Respiratory: bilateral: CTA - Cardiovascular Rhythm: regular Heart Sounds: Present: S1 & S2. Absent: gallop, rub - Extremities Extremities: no ischemia, No edema, Full ROM - Abdominal General gastrointestinal: soft, non-tender, non-distended, normal bowel sounds - Integumentary Integumentary: Present: clear, warm, dry - Neurologic Neurologic: CNII-XII intact, moves all extremities Results - Labs CBC & Chem 7: 07/29/17 06:15 07/29/17 06:15 Labs: Laboratory Last Values WBC 5.0 K/mm3 (4.5-11.0) 07/29/17 06:15 RBC 3.21 M/mm3 (3.65-5.03) L 07/29/17 06:15 Hgb 11.1 gm/dl (11.8-15.2) L 07/29/17 06:15 Hct 32.4 % (35.5-45.6) L 07/29/17 06:15 MCV 101 fl (84-94) H 07/29/17 06:15 MCH 34 pg (28-32) H 07/29/17 06:15 MCHC 34 % (32-34) 07/29/17 06:15 RDW 12.6 % (13.2-15.2) L 07/29/17 06:15 Plt Count 234 K/mm3 (140-440) 07/29/17 06:15 Lymph % (Auto) 13.1 % (13.4-35.0) L 07/29/17 06:15 [place] % (Auto) 12.4 % (0.0-7.3) H 07/29/17 06:15 Eos % (Auto) 5.0 % (0.0-4.3) H 07/29/17 06:15 Baso % (Auto) 1.3 % (0.0-1.8) 07/29/17 06:15 Lymph # 0.7 K/mm3 (1.2-5.4) L 07/29/17 06:15 [place] # 0.6 K/mm3 (0.0-0.8) 07/29/17 06:15 Eos # 0.3 K/mm3 (0.0-0.4) 07/29/17 06:15 Baso # 0.1 K/mm3 (0.0-0.1) 07/29/17 06:15 Seg Neutrophils % 68.2 % (40.0-70.0) 07/29/17 06:15 Seg Neutrophils # 3.4 K/mm3 (1.8-7.7) 07/29/17 06:15 Sodium 142 mmol/L (137-145) 07/29/17 06:15 Potassium 3.6 mmol/L (3.6-5.0) 07/29/17 06:15 Chloride 105.9 mmol/L (98-107) 07/29/17 06:15 Carbon Dioxide 23 mmol/L (22-30) 07/29/17 06:15 Anion Gap 17 mmol/L 07/29/17 06:15 BUN 11 mg/dL (9-20) 07/29/17 06:15 Creatinine 0.4 mg/dL (0.8-1.5) L 07/29/17 06:15 Estimated GFR > 60 ml/min 07/29/17 06:15 BUN/Creatinine Ratio 27.50 % 07/29/17 06:15 Glucose 100 mg/dL (75-100) 07/29/17 06:15 Hemoglobin A1c 4.5 % (4-6) 07/18/17 21:37 Calcium 8.4 mg/dL (8.4-10.2) 07/29/17 06:15 Phosphorus 3.50 mg/dL (2.5-4.5) 07/24/17 06:13 Magnesium 1.80 mg/dL (1.7-2.3) 07/24/17 06:13 Iron 32 ug/dL (49-181) L 07/18/17 21:38 TIBC 182.00 mcg/dL (250-450) L 07/18/17 21:38 % Saturation 17.58 % 07/18/17 21:38 Transferrin 130 mg/dl (180-329) L 07/18/17 21:38 Total Bilirubin 0.60 mg/dL (0.1-1.2) 07/19/17 04:00 Direct Bilirubin 0.2 mg/dL (0-0.2) 07/18/17 14:45 Indirect Bilirubin 0.4 mg/dL 07/18/17 14:45 AST 25 units/L (5-40) 07/19/17 04:00 ALT 22 units/L (7-56) 07/19/17 04:00 Alkaline Phosphatase 74 units/L (35-129) 07/19/17 04:00 Ammonia 28.0 umol/L (25-60) 07/18/17 14:45 Total Creatine Kinase 88 units/L (55-170) 07/19/17 08:18 CK-MB (CK-2) 3.0 ng/mL (0.0-4.0) 07/19/17 08:18 CK-MB (CK-2) Rel Index 3.4 (0-4) 07/19/17 08:18 Troponin T < 0.010 ng/mL (0.00-0.029) 07/19/17 08:18 Total Protein 5.7 g/dL (6.3-8.2) L 07/19/17 04:00 Albumin 2.9 g/dL (3.9-5) L 07/19/17 04:00 Albumin/Globulin Ratio 1.0 % 07/19/17 04:00 Vitamin B12 510.9 pg/mL (211-911) 07/18/17 21:39 RBC Folic Acid 462 ng/mL (>280) 07/18/17 21:29 Urine Color Straw (Yellow) 07/18/17 14:39 Urine Turbidity Clear (Clear) 07/18/17 14:39 Urine pH 6.0 (5.0-7.0) 07/18/17 14:39 Ur Specific [place] 1.010 (1.003-1.030) 07/18/17 14:39 Urine Protein <15 mg/dl mg/dL (Negative) 07/18/17 14:39 Urine Glucose (UA) Neg mg/dL (Negative) 07/18/17 14:39 Urine Ketones Neg mg/dL (Negative) 07/18/17 14:39 Urine Blood Neg (Negative) 07/18/17 14:39 Urine Nitrite Neg (Negative) 07/18/17 14:39 Urine Bilirubin Neg (Negative) 07/18/17 14:39 Urine Urobilinogen < 2.0 mg/dL (<2.0) 07/18/17 14:39 Ur Leukocyte Esterase Neg (Negative) 07/18/17 14:39 Urine WBC (Auto) < 1.0 /HPF (0.0-6.0) 07/18/17 14:39 Urine RBC (Auto) 1.0 /HPF (0.0-6.0) 07/18/17 14:39 Urine Opiates Screen Presumptive negative 07/18/17 14:39 Urine Methadone Screen Presumptive negative 07/18/17 14:39 Ur Barbiturates Screen Presumptive negative 07/18/17 14:39 Ur Phencyclidine Scrn Presumptive negative 07/18/17 14:39 Ur Amphetamines Screen Presumptive negative 07/18/17 14:39 U Benzodiazepines Scrn Presumptive negative 07/18/17 14:39 Urine Cocaine Screen Presumptive negative 07/18/17 14:39 U Marijuana (THC) Screen Presumptive negative 07/18/17 14:39 Drugs of Abuse Note Disclamer 07/18/17 14:39 Plasma/Serum Alcohol < 0.01 gm% (0-0.07) 07/18/17 14:45
[2017-07-30] MEDS: TYLENOL PO PRN (21:24)
--- NOTE | 2017-07-31 09:36 | Progress Note ---
Assessment and Plan Assessment and plan: --Encephalopathy. Etiology unclear. Alcohol withdrawal should be resolved. Neuro consult pending. Added Seroquel scheduled 25mg BID yesterday from stabilization. Initial CT scan negative. Psychiatry following. --Frequent falls. Patient reportedly had 3 falls within a 60 day prior to admission. Consider repeat CT scan. Neuro consultation pending. Fall precautions, restraint for safety as needed, physical therapy when patient more cooperative. --Alcohol withdrawal symptoms; patient has become intermittently agitated. Continue Haldol and Ativan as needed, Thiamine and folic acid --Syncope; probably secondary to underlying alcohol use, partly vasovagal, fall precautions --chronic alcohol abuse --Syncope. Etiology likely vasovagal. ECHO LVEF 55-60% --DVT prophylaxis. SCDs only. No anticoagulation because of history of subdural hematoma, alcohol abuse and likely frequent falls. --Physical therapy as tolerated try to to monitor the patient off restraints daily --FULL CODE STATUS Disposition. Patient awaiting placement at SNF History Interval history: Patient is somnolent this morning. Nursing reports episodes of agitation yesterday evening and last night Hospitalist Physical - Constitutional Vitals: Temp Pulse Resp BP Pulse Ox 97.6 F 70 20 132/80 91 07/31/17 07:51 07/31/17 07:51 07/31/17 07:51 07/31/17 07:51 07/31/17 07:51 General appearance: Present: no acute distress, well-nourished, other ( Confused) - EENT Eyes: Present: PERRL, EOM intact ENT: hearing intact, clear oral mucosa, dentition normal - Neck Neck: Present: supple, normal ROM - Respiratory Respiratory effort: normal Respiratory: bilateral: CTA - Cardiovascular Rhythm: regular Heart Sounds: Present: S1 & S2. Absent: gallop, rub - Extremities Extremities: no ischemia, No edema, Full ROM - Abdominal General gastrointestinal: soft, non-tender, non-distended, normal bowel sounds - Integumentary Integumentary: Present: clear, warm, dry - Neurologic Neurologic: CNII-XII intact, moves all extremities Results - Labs CBC & Chem 7: 07/29/17 06:15 07/29/17 06:15 Labs: Laboratory Last Values WBC 5.0 K/mm3 (4.5-11.0) 07/29/17 06:15 RBC 3.21 M/mm3 (3.65-5.03) L 07/29/17 06:15 Hgb 11.1 gm/dl (11.8-15.2) L 07/29/17 06:15 Hct 32.4 % (35.5-45.6) L 07/29/17 06:15 MCV 101 fl (84-94) H 07/29/17 06:15 MCH 34 pg (28-32) H 07/29/17 06:15 MCHC 34 % (32-34) 07/29/17 06:15 RDW 12.6 % (13.2-15.2) L 07/29/17 06:15 Plt Count 234 K/mm3 (140-440) 07/29/17 06:15 Lymph % (Auto) 13.1 % (13.4-35.0) L 07/29/17 06:15 [place] % (Auto) 12.4 % (0.0-7.3) H 07/29/17 06:15 Eos % (Auto) 5.0 % (0.0-4.3) H 07/29/17 06:15 Baso % (Auto) 1.3 % (0.0-1.8) 07/29/17 06:15 Lymph # 0.7 K/mm3 (1.2-5.4) L 07/29/17 06:15 [place] # 0.6 K/mm3 (0.0-0.8) 07/29/17 06:15 Eos # 0.3 K/mm3 (0.0-0.4) 07/29/17 06:15 Baso # 0.1 K/mm3 (0.0-0.1) 07/29/17 06:15 Seg Neutrophils % 68.2 % (40.0-70.0) 07/29/17 06:15 Seg Neutrophils # 3.4 K/mm3 (1.8-7.7) 07/29/17 06:15 Sodium 142 mmol/L (137-145) 07/29/17 06:15 Potassium 3.6 mmol/L (3.6-5.0) 07/29/17 06:15 Chloride 105.9 mmol/L (98-107) 07/29/17 06:15 Carbon Dioxide 23 mmol/L (22-30) 07/29/17 06:15 Anion Gap 17 mmol/L 07/29/17 06:15 BUN 11 mg/dL (9-20) 07/29/17 06:15 Creatinine 0.4 mg/dL (0.8-1.5) L 07/29/17 06:15 Estimated GFR > 60 ml/min 07/29/17 06:15 BUN/Creatinine Ratio 27.50 % 07/29/17 06:15 Glucose 100 mg/dL (75-100) 07/29/17 06:15 Hemoglobin A1c 4.5 % (4-6) 07/18/17 21:37 Calcium 8.4 mg/dL (8.4-10.2) 07/29/17 06:15 Phosphorus 3.50 mg/dL (2.5-4.5) 07/24/17 06:13 Magnesium 1.80 mg/dL (1.7-2.3) 07/24/17 06:13 Iron 32 ug/dL (49-181) L 07/18/17 21:38 TIBC 182.00 mcg/dL (250-450) L 07/18/17 21:38 % Saturation 17.58 % 07/18/17 21:38 Transferrin 130 mg/dl (180-329) L 07/18/17 21:38 Total Bilirubin 0.60 mg/dL (0.1-1.2) 07/19/17 04:00 Direct Bilirubin 0.2 mg/dL (0-0.2) 07/18/17 14:45 Indirect Bilirubin 0.4 mg/dL 07/18/17 14:45 AST 25 units/L (5-40) 07/19/17 04:00 ALT 22 units/L (7-56) 07/19/17 04:00 Alkaline Phosphatase 74 units/L (35-129) 07/19/17 04:00 Ammonia 28.0 umol/L (25-60) 07/18/17 14:45 Total Creatine Kinase 88 units/L (55-170) 07/19/17 08:18 CK-MB (CK-2) 3.0 ng/mL (0.0-4.0) 07/19/17 08:18 CK-MB (CK-2) Rel Index 3.4 (0-4) 07/19/17 08:18 Troponin T < 0.010 ng/mL (0.00-0.029) 07/19/17 08:18 Total Protein 5.7 g/dL (6.3-8.2) L 07/19/17 04:00 Albumin 2.9 g/dL (3.9-5) L 07/19/17 04:00 Albumin/Globulin Ratio 1.0 % 07/19/17 04:00 Vitamin B12 510.9 pg/mL (211-911) 07/18/17 21:39 RBC Folic Acid 462 ng/mL (>280) 07/18/17 21:29 Urine Color Straw (Yellow) 07/18/17 14:39 Urine Turbidity Clear (Clear) 07/18/17 14:39 Urine pH 6.0 (5.0-7.0) 07/18/17 14:39 Ur Specific [place] 1.010 (1.003-1.030) 07/18/17 14:39 Urine Protein <15 mg/dl mg/dL (Negative) 07/18/17 14:39 Urine Glucose (UA) Neg mg/dL (Negative) 07/18/17 14:39 Urine Ketones Neg mg/dL (Negative) 07/18/17 14:39 Urine Blood Neg (Negative) 07/18/17 14:39 Urine Nitrite Neg (Negative) 07/18/17 14:39 Urine Bilirubin Neg (Negative) 07/18/17 14:39 Urine Urobilinogen < 2.0 mg/dL (<2.0) 07/18/17 14:39 Ur Leukocyte Esterase Neg (Negative) 07/18/17 14:39 Urine WBC (Auto) < 1.0 /HPF (0.0-6.0) 07/18/17 14:39 Urine RBC (Auto) 1.0 /HPF (0.0-6.0) 07/18/17 14:39 Urine Opiates Screen Presumptive negative 07/18/17 14:39 Urine Methadone Screen Presumptive negative 07/18/17 14:39 Ur Barbiturates Screen Presumptive negative 07/18/17 14:39 Ur Phencyclidine Scrn Presumptive negative 07/18/17 14:39 Ur Amphetamines Screen Presumptive negative 07/18/17 14:39 U Benzodiazepines Scrn Presumptive negative 07/18/17 14:39 Urine Cocaine Screen Presumptive negative 07/18/17 14:39 U Marijuana (THC) Screen Presumptive negative 07/18/17 14:39 Drugs of Abuse Note Disclamer 07/18/17 14:39 Plasma/Serum Alcohol < 0.01 gm% (0-0.07) 07/18/17 14:45
[2017-07-31] MEDS: PEPCID PO SCH ×2 (10:00→22:14)
[2017-07-31] MEDS: MAG-OX PO SCH (10:00)
--- NOTE | 2017-07-31 12:41 | Consultation ---
History of Present Illness - Reason for Consult Consult date: 07/31/17 Reason for consult: Mental Health Evaluation Requesting physician: DARLINE HEATH - Chief Complaint Chief complaint: "Good morning" - History of Present Psychiatric Illness The patient was sent to this facility for medical clearance from a psychiatric facility. Per the ER note, the patient was sent from [facility] for evaluation and medical clearance to [facility]. This patient is known to me. Psychiatry was reconsulted to see this patient because of agitation and sleep disturbance. Today patient is calm and cooperative, but confused during the assessment. Patient was able to recall 1/3 numbers (4,8,9) within 5 mins. He could not tell me his current location. Per collateral information from his son Stew Washburn, his father has experienced 3 falls within months and he consumed his last drink 06 Jul 2017. Per the staff, patient was found wandering the hallways at night naked and had to be assisted back to his room. Also, it was stated that the patient is having a hard time starting sleep. When I asked the patient about these episodes, he could not recall them. Patient is a poor historian at this time. Medications and Allergies Allergies Allergy/AdvReac Type Severity Reaction Status Date / Time codeine Allergy Unknown Verified 07/18/17 14:10 procaine HCl [From Novocain] Allergy Unknown Verified 07/18/17 14:10 Home Medications Medication Instructions Recorded Confirmed Last Taken Type No Known Home Medications [No 07/18/17 07/18/17 Unknown History Reported Home Medications] Active Meds: Active Medications Acetaminophen (Tylenol) 650 mg PO Q4H PRN PRN Reason: Pain MILD(1-3)/Fever >100.5/CRESPO Last Admin: 07/30/17 21:24 Dose: 650 mg Bisacodyl (Dulcolax) 10 mg [place] QDAY PRN PRN Reason: Constipation unrelieved by MOM Famotidine (Pepcid) 20 mg PO BID [facility] Last Admin: 07/30/17 21:24 Dose: 20 mg Haloperidol Lactate (Haldol) 2 mg IM Q4HR PRN PRN Reason: Agitation Last Admin: 07/30/17 12:39 Dose: 2 mg Magnesium Hydroxide (Milk Of Magnesia) 30 ml PO Q4H PRN PRN Reason: Constipation Magnesium Oxide (Mag-Ox) 400 mg PO QDAY [facility] Last Admin: 07/30/17 09:46 Dose: 400 mg Ondansetron HCl (Zofran) 4 mg IV Q8H PRN PRN Reason: N/V unrelieved by Reglan Last Admin: 07/26/17 05:05 Dose: 4 mg Quetiapine Fumarate (Seroquel) 25 mg PO BID [facility] Last Admin: 07/30/17 21:24 Dose: 25 mg Zolpidem Tartrate (Ambien) 5 mg PO QHS PRN PRN Reason: Insomnia Last Admin: 07/29/17 21:02 Dose: 5 mg Past psychiatric history - Past Medical History Past Medical History: other (Hx of falls) Past Surgical History: Other (Cataract Surgery) - past Psychiatric treatment and history psychiatric treatment history: Per the family no psy hx and no fam psy hx. - Social History Social history: lives with family Mental Status Exam - Vital signs Last Vital Signs Temp 97.6 F 07/31/17 07:51 Pulse 70 07/31/17 07:51 Resp 20 07/31/17 07:51 BP 132/80 07/31/17 07:51 Pulse Ox 91 07/31/17 07:51 - Exam Narrative exam: ROS: (-) depression, (-) psychosis MSE: Appearance: calm, cooperative Behavior: regular eye contact Speech: regular rate and tone Mood: "okay" Affect: congruent to mood Thought Process: circumstantial Thought Content: Denies SI/HI's and AVH's Motor Activity: lying in bed Cognition: A/Ox 2 Insight: limited Judgment: limited Results Result Diagrams: 07/29/17 06:15 07/29/17 06:15 All other labs normal. Assessment and Plan Assessment and plan: Impression: Historical Dx: Alcohol abuse. Alcohol Use DO. Today patient is calm and cooperative. Medical: Encephalopathy, etiology unclear Recommendation/Plan: Start Remeron 15 mg PO HS for sleep consolidation. Delirium precautions below. Discussed with patient and family the importance to abstain from alcohol consumption. Discussed with patient and family possible suicidality/medication induced cricket reference Remeron. 1. Frequently reorient patient and involve him/her in their care (simple explanations of procedures, tests, medications). 2. Lights on and shades open during daytime hours. 3. Try to avoid unnecessary interruptions to sleep during nighttime hours. 4. Obtain glasses, hearing aids from home if patient uses these at baseline. 5. Avoid medications that may exacerbate delirium (especially narcotics, benzodiazepines, barbiturates, ambien, lunesta, and medications with excessive anticholinergic properties). 6. Haldol 2 mg IM Q4hrs for agitation. 7. D/C'd Seroquel and Ambien.
--- NOTE | 2017-07-31 13:25 | Consultation ---
History of Present Illness Consult date: 07/31/17 History of present illness: Neurology consultation note: 07/31/2017 Mr. Washburn is a 67-year-old white male patient who originally admitted to this hospital 07/18/2017 as a transfer from from a psychiatric or a rehabilitation facility for "medical clearance". Currently no family available at the bedside and Mr. Washburn himself could not provide much details but otherwise appeared to be very cooperative. He is somewhat sleepy but arousable. Over the last several days he has been noted to have agitation and sleep disturbances and confusion. While he is currently being seen by a psychiatrist, neurology consultation requested especially to assess his neurologic status. Dashboard records reviewed. He had a CT scan of the brain on 07/18/2070 and I have personally reviewed the images on the dashboard. It shows generalized cerebral atrophy and old lacunar infarcts in the basal ganglia but nothing appeared to be acute and no evidence of hydrocephalus or subdural fluid collections or hematomas. Currently Mr. Washburn denies any headaches or dizziness. He has no trouble swallowing, apparently. Denies having had a stroke in his life before and never had any seizures or heart disease. He has no known hypertension diabetes, hyperlipidemia. He does have a history of heavy alcohol abuse and I understand that there is a concern about alcohol withdrawal syndrome. He has had several falls in the last few months and also About Syncopal type Spells but Patient Unable to Provide Much History. Family history unavailable. Allergies and medications as listed in the chart. Gen. exam: Blood pressure 130/80, pulse is 82, no cranial or carotid bruit. He has 1 inch size laceration in the right forehead with jackie. No evidence of any bleeding or discharge from the ears or the nose. Central nervous system exam: Higher cortical functions: Patient drowsy but easily arousable, answers appropriately, he knew the month and the year but otherwise did not know the day of the week or the date. He vaguely said "I may be in the hospital", did not know the name of the hospital, he knew his home address well, he could say the names of the family members. Patient did not appear to be aphasic or dysarthric. At times smiling, did not appear to be agitated at all. Cranial nerves: Optic fundi could not be examined. Pupils about 3 mm equal and reactive, full eye movements, no nystagmus. No definite visual field deficit. No facial asymmetry or weakness hearing grossly normal. Lower cranial nerves normal. Motor system: Grossly normal tone and strength all extremities. No tremors or myoclonus. Gait not tested. Sensory exam: Not quite testable in this patient at this time. Reflexes: Reflexes bilaterally 2+ symmetrical in all extremities. Both plantars reflexes downgoing. Impression: #1. Acute encephalopathy with confusion and agitation, seems to have improved significantly. Probable acute alcohol withdrawal syndrome with agitation and confusion. Seizures seem less likely. #2. 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 CT scan of the brain shows generalized brain atrophy but otherwise no evidence of subdural fluid collections or hematomas or acute stroke. Recommendation: No new suggestions from neurologic standpoint. May continue Haldol. Otherwise I agree that sedative medication should be avoided as much as possible. Continue multivitamins including thiamine. Thank you very much for this consultation. Tim Bui M.D./ Neurology 07/31/17 Past History Past Medical History: other (Hx of falls) Past Surgical History: Other (Cataract Surgery) Social history: lives with family Medications and Allergies Allergies Allergy/AdvReac Type Severity Reaction Status Date / Time codeine Allergy Unknown Verified 07/18/17 14:10 procaine HCl [From Novocain] Allergy Unknown Verified 07/18/17 14:10 Home Medications Medication Instructions Recorded Confirmed Last Taken Type No Known Home Medications [No 07/18/17 07/18/17 Unknown History Reported Home Medications] Active Meds: Active Medications Acetaminophen (Tylenol) 650 mg PO Q4H PRN PRN Reason: Pain MILD(1-3)/Fever >100.5/CRESPO Last Admin: 07/30/17 21:24 Dose: 650 mg Bisacodyl (Dulcolax) 10 mg [place] QDAY PRN PRN Reason: Constipation unrelieved by MOM Famotidine (Pepcid) 20 mg PO BID [facility] Last Admin: 07/30/17 21:24 Dose: 20 mg Haloperidol Lactate (Haldol) 2 mg IM Q4HR PRN PRN Reason: Agitation Last Admin: 07/30/17 12:39 Dose: 2 mg Magnesium Hydroxide (Milk Of Magnesia) 30 ml PO Q4H PRN PRN Reason: Constipation Magnesium Oxide (Mag-Ox) 400 mg PO QDAY [facility] Last Admin: 07/30/17 09:46 Dose: 400 mg Mirtazapine (Remeron) 15 mg PO QHS [facility] Ondansetron HCl (Zofran) 4 mg IV Q8H PRN PRN Reason: N/V unrelieved by Irina Last Admin: 07/26/17 05:05 Dose: 4 mg Physical Examination - Vital Signs Vital Signs: Vital Signs BP Pulse Ox 109/60 100 07/18/17 14:17 07/18/17 14:17 Results - Laboratory Findings CBC and BMP: 07/29/17 06:15 07/29/17 06:15 Abnormal Lab Findings: Abnormal Labs 07/18/17 07/19/17 07/19/17 21:38 04:00 08:18 RBC 2.98 L Hgb 10.5 L Hct 30.8 L MCV 103 H MCH 35 H RDW 12.6 L Lymph % (Auto) 7.1 L [place] % (Auto) 11.1 H Eos % (Auto) Lymph # 0.4 L Seg Neutrophils % 79.0 H Potassium BUN Creatinine 0.5 L Calcium 8.0 L Magnesium Iron 32 L TIBC 182.00 L Transferrin 130 L Total Protein 5.7 L Albumin 2.9 L 07/20/17 07/22/17 07/22/17 08:51 07:07 07:07 RBC 3.05 L Hgb 10.8 L 10.7 L Hct 32.5 L 31.5 L MCV 103 H MCH 35 H RDW 12.4 L Lymph % (Auto) [place] % (Auto) Eos % (Auto) Lymph # Seg Neutrophils % Potassium 2.9 L* D BUN 6 L Creatinine 0.4 L Calcium 7.9 L Magnesium Iron TIBC Transferrin Total Protein Albumin 07/22/17 07/24/17 07/28/17 21:34 06:13 04:27 RBC 3.25 L Hgb 11.4 L Hct 33.1 L MCV 102 H MCH 35 H RDW 12.3 L Lymph % (Auto) 9.3 L [place] % (Auto) 11.9 H Eos % (Auto) 5.4 H Lymph # 0.5 L Seg Neutrophils % 72.4 H Potassium 3.3 L BUN Creatinine Calcium Magnesium 1.60 L Iron TIBC Transferrin Total Protein Albumin 07/28/17 07/29/17 07/29/17 04:27 06:15 06:15 RBC 3.21 L Hgb 11.1 L Hct 32.4 L MCV 101 H MCH 34 H RDW 12.6 L Lymph % (Auto) 13.1 L [place] % (Auto) 12.4 H Eos % (Auto) 5.0 H Lymph # 0.7 L Seg Neutrophils % Potassium 3.2 L BUN Creatinine 0.5 L 0.4 L Calcium Magnesium Iron TIBC Transferrin Total Protein Albumin
[2017-07-31] MEDS: HALDOL IM PRN (17:13)
[2017-07-31] MEDS: REMERON PO SCH (22:14)
[2017-08-01] MEDS: HALDOL IM PRN ×3 (00:10→23:04)
[2017-08-01] MEDS: MAG-OX PO SCH (10:26)
[2017-08-01] MEDS: PEPCID PO SCH ×2 (10:26→23:04)
--- NOTE | 2017-08-01 11:38 | Progress Note ---
Assessment and Plan - Patient Problems (1) Acute encephalopathy Current Visit: Yes Status: Acute Plan to address problem: Significantly improved. Still awaiting placement. Patient not stable enough to be home taking care of himself. No family members at present. (2) Delirium tremens Current Visit: Yes Status: Acute Plan to address problem: DTs has resolved. Acute encephalopathy alcoholic related dimension. Avoid scheduled benzodiazepines. History Interval history: Patient remains confused but alert. Most likely at his baseline. I also agree with alcoholic dementia. No new changes over p.m. still awaiting placement. Hospitalist Physical - Constitutional Vitals: Temp Pulse Resp BP Pulse Ox 98.0 F 63 20 127/70 98 08/01/17 07:32 07/31/17 22:55 08/01/17 07:32 08/01/17 07:32 07/31/17 22:55 General appearance: Present: no acute distress, well-nourished, other ( Confused) - EENT Eyes: Present: PERRL, EOM intact ENT: hearing intact, clear oral mucosa - Neck Neck: Present: supple, normal ROM - Respiratory Respiratory: bilateral: CTA - Cardiovascular Rhythm: regular Heart Sounds: Present: S1 & S2 - Extremities Extremities: no ischemia Peripheral Pulses: within normal limits - Abdominal General gastrointestinal: soft, non-tender, non-distended - Psychiatric Psychiatric: other (cooperative agitated at times poor cognition.) - Neurologic Neurologic: CNII-XII intact Results - Labs CBC & Chem 7: 07/29/17 06:15 07/29/17 06:15 Labs: Laboratory Last Values WBC 5.0 K/mm3 (4.5-11.0) 07/29/17 06:15 RBC 3.21 M/mm3 (3.65-5.03) L 07/29/17 06:15 Hgb 11.1 gm/dl (11.8-15.2) L 07/29/17 06:15 Hct 32.4 % (35.5-45.6) L 07/29/17 06:15 MCV 101 fl (84-94) H 07/29/17 06:15 MCH 34 pg (28-32) H 07/29/17 06:15 MCHC 34 % (32-34) 07/29/17 06:15 RDW 12.6 % (13.2-15.2) L 07/29/17 06:15 Plt Count 234 K/mm3 (140-440) 07/29/17 06:15 Lymph % (Auto) 13.1 % (13.4-35.0) L 07/29/17 06:15 [place] % (Auto) 12.4 % (0.0-7.3) H 07/29/17 06:15 Eos % (Auto) 5.0 % (0.0-4.3) H 07/29/17 06:15 Baso % (Auto) 1.3 % (0.0-1.8) 07/29/17 06:15 Lymph # 0.7 K/mm3 (1.2-5.4) L 07/29/17 06:15 [facility] [place] # 0.6 K/mm3 (0.0-0.8) 07/29/17 06:15 Eos # 0.3 K/mm3 (0.0-0.4) 07/29/17 06:15 Baso # 0.1 K/mm3 (0.0-0.1) 07/29/17 06:15 Seg Neutrophils % 68.2 % (40.0-70.0) 07/29/17 06:15 Seg Neutrophils # 3.4 K/mm3 (1.8-7.7) 07/29/17 06:15 Sodium 142 mmol/L (137-145) 07/29/17 06:15 Potassium 3.6 mmol/L (3.6-5.0) 07/29/17 06:15 Chloride 105.9 mmol/L (98-107) 07/29/17 06:15 Carbon Dioxide 23 mmol/L (22-30) 07/29/17 06:15 Anion Gap 17 mmol/L 07/29/17 06:15 BUN 11 mg/dL (9-20) 07/29/17 06:15 Creatinine 0.4 mg/dL (0.8-1.5) L 07/29/17 06:15 Estimated GFR > 60 ml/min 07/29/17 06:15 BUN/Creatinine Ratio 27.50 % 07/29/17 06:15 Glucose 100 mg/dL (75-100) 07/29/17 06:15 Hemoglobin A1c 4.5 % (4-6) 07/18/17 21:37 Calcium 8.4 mg/dL (8.4-10.2) 07/29/17 06:15 Phosphorus 3.50 mg/dL (2.5-4.5) 07/24/17 06:13 Magnesium 1.80 mg/dL (1.7-2.3) 07/24/17 06:13 Iron 32 ug/dL (49-181) L 07/18/17 21:38 TIBC 182.00 mcg/dL (250-450) L 07/18/17 21:38 % Saturation 17.58 % 07/18/17 21:38 Transferrin 130 mg/dl (180-329) L 07/18/17 21:38 Total Bilirubin 0.60 mg/dL (0.1-1.2) 07/19/17 04:00 Direct Bilirubin 0.2 mg/dL (0-0.2) 07/18/17 14:45 Indirect Bilirubin 0.4 mg/dL 07/18/17 14:45 AST 25 units/L (5-40) 07/19/17 04:00 ALT 22 units/L (7-56) 07/19/17 04:00 Alkaline Phosphatase 74 units/L (35-129) 07/19/17 04:00 Ammonia 28.0 umol/L (25-60) 07/18/17 14:45 Total Creatine Kinase 88 units/L (55-170) 07/19/17 08:18 CK-MB (CK-2) 3.0 ng/mL (0.0-4.0) 07/19/17 08:18 CK-MB (CK-2) Rel Index 3.4 (0-4) 07/19/17 08:18 Troponin T < 0.010 ng/mL (0.00-0.029) 07/19/17 08:18 Total Protein 5.7 g/dL (6.3-8.2) L 07/19/17 04:00 Albumin 2.9 g/dL (3.9-5) L 07/19/17 04:00 Albumin/Globulin Ratio 1.0 % 07/19/17 04:00 Vitamin B12 510.9 pg/mL (211-911) 07/18/17 21:39 RBC Folic Acid 462 ng/mL (>280) 07/18/17 21:29 Urine Color Straw (Yellow) 07/18/17 14:39 Urine Turbidity Clear (Clear) 07/18/17 14:39 Urine pH 6.0 (5.0-7.0) 07/18/17 14:39 Ur Specific [place] 1.010 (1.003-1.030) 07/18/17 14:39 Urine Protein <15 mg/dl mg/dL (Negative) 07/18/17 14:39 Urine Glucose (UA) Neg mg/dL (Negative) 07/18/17 14:39 Urine Ketones Neg mg/dL (Negative) 07/18/17 14:39 Urine Blood Neg (Negative) 07/18/17 14:39 Urine Nitrite Neg (Negative) 07/18/17 14:39 Urine Bilirubin Neg (Negative) 07/18/17 14:39 Urine Urobilinogen < 2.0 mg/dL (<2.0) 07/18/17 14:39 Ur Leukocyte Esterase Neg (Negative) 07/18/17 14:39 Urine WBC (Auto) < 1.0 /HPF (0.0-6.0) 07/18/17 14:39 Urine RBC (Auto) 1.0 /HPF (0.0-6.0) 07/18/17 14:39 Urine Opiates Screen Presumptive negative 07/18/17 14:39 Urine Methadone Screen Presumptive negative 07/18/17 14:39 Ur Barbiturates Screen Presumptive negative 07/18/17 14:39 Ur Phencyclidine Scrn Presumptive negative 07/18/17 14:39 Ur Amphetamines Screen Presumptive negative 07/18/17 14:39 U Benzodiazepines Scrn Presumptive negative 07/18/17 14:39 Urine Cocaine Screen Presumptive negative 07/18/17 14:39 U Marijuana (THC) Screen Presumptive negative 07/18/17 14:39 Drugs of Abuse Note Disclamer 07/18/17 14:39 Plasma/Serum Alcohol < 0.01 gm% (0-0.07) 07/18/17 14:45
--- NOTE | 2017-08-01 14:40 | Progress Note ---
Subjective - Reason for Consult Consult date: 08/01/17 Reason for consult: follow up - Chief Complaint Chief complaint: "Mama!" The patient was sent to this facility for medical clearance from a psychiatric facility. Per the ER note, the patient was sent [facility] for evaluation and medical clearance to [facility]. Today he is irritable and upset aout his mother banging on the door, while pointing to the wall. He repeatedly called for "mama." He is confused. He is in a waist restraint and was observed sitting up in bed pulling at his leg restraint. Mental Status Exam - Vital signs Last Vital Signs Temp 98.0 F 08/01/17 07:32 Pulse 63 07/31/17 22:55 Resp 20 08/01/17 07:32 BP 127/70 08/01/17 07:32 Pulse Ox 98 07/31/17 22:55 Assessment and Plan Narrative exam: ROS: (-) depression, (-) psychosis MSE: Appearance: sitting in bed picking at restraints. uncooperative Behavior: regular eye contact Speech: yelling Mood: irritable Affect: congruent to mood Thought Process: circumstantial Thought Content: Denies SI/HI's and AVH's Motor Activity: in a waist restraint. he is restless Cognition: A/Ox to name, year, not day/month/date. He is not oriented to location. Insight: limited Judgment: limited Assessment and plan: Impression: Historical Dx: Alcohol abuse. Alcohol Use DO. Today patient is calm and cooperative. Medical: Encephalopathy, etiology unclear Recommendation/Plan: Continue Remeron 15 mg PO HS for sleep consolidation. Delirium precautions below. Discussed with patient and family the importance to abstain from alcohol consumption. 1. Frequently reorient patient and involve him/her in their care (simple explanations of procedures, tests, medications). 2. Lights on and shades open during daytime hours. 3. Try to avoid unnecessary interruptions to sleep during nighttime hours. 4. Obtain glasses, hearing aids from home if patient uses these at baseline. 5. Avoid medications that may exacerbate delirium (especially narcotics, benzodiazepines, barbiturates, ambien, lunesta, and medications with excessive anticholinergic properties). 6. Haldol 2 mg IM Q4hrs for agitation. 7. D/C'd Seroquel and Ambien.
[2017-08-01] MEDS: REMERON PO SCH (23:04)
[2017-08-02] MEDS: HALDOL IM PRN ×2 (06:19→15:50)
--- NOTE | 2017-08-02 10:12 | Progress Note ---
Assessment and Plan - Patient Problems (1) Acute encephalopathy Current Visit: Yes Status: Acute Plan to address problem: Significantly improved. Still awaiting placement. Patient not stable enough to be home taking care of himself. No family members at present. (2) Delirium tremens Current Visit: Yes Status: Acute Plan to address problem: Delirium tremors has resolved. await placement. History Interval history: Patient seems well today the conversation. Able to determine what he was watching TV. Hospitalist Physical - Constitutional Vitals: Temp Pulse Resp BP Pulse Ox 98.1 F 72 20 97/61 100 08/02/17 08:03 08/02/17 08:03 08/02/17 08:03 08/02/17 08:03 08/02/17 08:03 General appearance: Present: no acute distress, well-nourished, other ( Confused) - EENT Eyes: Present: PERRL, EOM intact ENT: hearing intact, clear oral mucosa, dentition normal - Neck Neck: Present: normal ROM - Respiratory Respiratory effort: normal - Cardiovascular Rhythm: regular - Extremities Extremities: no ischemia, pulses intact, pulses symmetrical, No edema Peripheral Pulses: within normal limits - Abdominal General gastrointestinal: soft, non-tender - Integumentary Integumentary: Present: clear, warm, dry - Psychiatric Psychiatric: cooperative - Neurologic Neurologic: CNII-XII intact, no focal deficits Results - Labs CBC & Chem 7: 07/29/17 06:15 07/29/17 06:15 Labs: Laboratory Last Values WBC 5.0 K/mm3 (4.5-11.0) 07/29/17 06:15 RBC 3.21 M/mm3 (3.65-5.03) L 07/29/17 06:15 Hgb 11.1 gm/dl (11.8-15.2) L 07/29/17 06:15 Hct 32.4 % (35.5-45.6) L 07/29/17 06:15 MCV 101 fl (84-94) H 07/29/17 06:15 MCH 34 pg (28-32) H 07/29/17 06:15 MCHC 34 % (32-34) 07/29/17 06:15 RDW 12.6 % (13.2-15.2) L 07/29/17 06:15 Plt Count 234 K/mm3 (140-440) 07/29/17 06:15 Lymph % (Auto) 13.1 % (13.4-35.0) L 07/29/17 06:15 [place] % (Auto) 12.4 % (0.0-7.3) H 07/29/17 06:15 Eos % (Auto) 5.0 % (0.0-4.3) H 07/29/17 06:15 Baso % (Auto) 1.3 % (0.0-1.8) 07/29/17 06:15 Lymph # 0.7 K/mm3 (1.2-5.4) L 07/29/17 06:15 [place] # 0.6 K/mm3 (0.0-0.8) 07/29/17 06:15 Eos # 0.3 K/mm3 (0.0-0.4) 07/29/17 06:15 Baso # 0.1 K/mm3 (0.0-0.1) 07/29/17 06:15 Seg Neutrophils % 68.2 % (40.0-70.0) 07/29/17 06:15 Seg Neutrophils # 3.4 K/mm3 (1.8-7.7) 07/29/17 06:15 Sodium 142 mmol/L (137-145) 07/29/17 06:15 Potassium 3.6 mmol/L (3.6-5.0) 07/29/17 06:15 Chloride 105.9 mmol/L (98-107) 07/29/17 06:15 Carbon Dioxide 23 mmol/L (22-30) 07/29/17 06:15 Anion Gap 17 mmol/L 07/29/17 06:15 BUN 11 mg/dL (9-20) 07/29/17 06:15 Creatinine 0.4 mg/dL (0.8-1.5) L 07/29/17 06:15 Estimated GFR > 60 ml/min 07/29/17 06:15 BUN/Creatinine Ratio 27.50 % 07/29/17 06:15 Glucose 100 mg/dL (75-100) 07/29/17 06:15 Hemoglobin A1c 4.5 % (4-6) 07/18/17 21:37 Calcium 8.4 mg/dL (8.4-10.2) 07/29/17 06:15 Phosphorus 3.50 mg/dL (2.5-4.5) 07/24/17 06:13 Magnesium 1.80 mg/dL (1.7-2.3) 07/24/17 06:13 Iron 32 ug/dL (49-181) L 07/18/17 21:38 TIBC 182.00 mcg/dL (250-450) L 07/18/17 21:38 % Saturation 17.58 % 07/18/17 21:38 Transferrin 130 mg/dl (180-329) L 07/18/17 21:38 Total Bilirubin 0.60 mg/dL (0.1-1.2) 07/19/17 04:00 Direct Bilirubin 0.2 mg/dL (0-0.2) 07/18/17 14:45 Indirect Bilirubin 0.4 mg/dL 07/18/17 14:45 AST 25 units/L (5-40) 07/19/17 04:00 ALT 22 units/L (7-56) 07/19/17 04:00 Alkaline Phosphatase 74 units/L (35-129) 07/19/17 04:00 Ammonia 28.0 umol/L (25-60) 07/18/17 14:45 Total Creatine Kinase 88 units/L (55-170) 07/19/17 08:18 CK-MB (CK-2) 3.0 ng/mL (0.0-4.0) 07/19/17 08:18 CK-MB (CK-2) Rel Index 3.4 (0-4) 07/19/17 08:18 Troponin T < 0.010 ng/mL (0.00-0.029) 07/19/17 08:18 Total Protein 5.7 g/dL (6.3-8.2) L 07/19/17 04:00 Albumin 2.9 g/dL (3.9-5) L 07/19/17 04:00 Albumin/Globulin Ratio 1.0 % 07/19/17 04:00 Vitamin B12 510.9 pg/mL (211-911) 07/18/17 21:39 RBC Folic Acid 462 ng/mL (>280) 07/18/17 21:29 Urine Color Straw (Yellow) 07/18/17 14:39 Urine Turbidity Clear (Clear) 07/18/17 14:39 Urine pH 6.0 (5.0-7.0) 07/18/17 14:39 Ur Specific [place] 1.010 (1.003-1.030) 07/18/17 14:39 Urine Protein <15 mg/dl mg/dL (Negative) 07/18/17 14:39 Urine Glucose (UA) Neg mg/dL (Negative) 07/18/17 14:39 Urine Ketones Neg mg/dL (Negative) 07/18/17 14:39 Urine Blood Neg (Negative) 07/18/17 14:39 Urine Nitrite Neg (Negative) 07/18/17 14:39 Urine Bilirubin Neg (Negative) 07/18/17 14:39 Urine Urobilinogen < 2.0 mg/dL (<2.0) 07/18/17 14:39 Ur Leukocyte Esterase Neg (Negative) 07/18/17 14:39 Urine WBC (Auto) < 1.0 /HPF (0.0-6.0) 07/18/17 14:39 Urine RBC (Auto) 1.0 /HPF (0.0-6.0) 07/18/17 14:39 Urine Opiates Screen Presumptive negative 07/18/17 14:39 Urine Methadone Screen Presumptive negative 07/18/17 14:39 Ur Barbiturates Screen Presumptive negative 07/18/17 14:39 Ur Phencyclidine Scrn Presumptive negative 07/18/17 14:39 Ur Amphetamines Screen Presumptive negative 07/18/17 14:39 U Benzodiazepines Scrn Presumptive negative 07/18/17 14:39 Urine Cocaine Screen Presumptive negative 07/18/17 14:39 U Marijuana (THC) Screen Presumptive negative 07/18/17 14:39 Drugs of Abuse Note Disclamer 07/18/17 14:39 Plasma/Serum Alcohol < 0.01 gm% (0-0.07) 07/18/17 14:45
[2017-08-02] MEDS: PEPCID PO SCH ×2 (10:58→21:39)
[2017-08-02] MEDS: MAG-OX PO SCH (10:58)
[2017-08-02] MEDS: REMERON PO SCH (21:40)
--- NOTE | 2017-08-03 11:00 | Progress Note ---
Subjective - Reason for Consult Consult date: 08/03/17 Reason for consult: Psychiatry Follow-up - Chief Complaint Chief complaint: "How are you" The patient was sent to this facility for medical clearance from a psychiatric facility. Per the ER note, the patient was sent from [facility] for evaluation and medical clearance to [facility]. Today patient is calm and cooperative during the assessment. He was able to name his and son, but is confused about his current location. He stated, "I have 2 kids in a incubator next to me." Patient is in a single person room. He denies SI/HI's and depression. He denies any side effects of his medications. Per the staff, patient is agitated mostly at night. Mental Status Exam - Vital signs Last Vital Signs Temp 97.8 F 08/03/17 08:46 Pulse 76 08/03/17 08:46 Resp 18 08/03/17 08:46 BP 143/75 08/03/17 08:46 Pulse Ox 99 08/03/17 08:46 - Exam Narrative exam: MSE: Appearance: calm, cooperative Behavior: regular eye contact Speech: regular rate and tone Mood: "okay" Affect: congruent to mood Thought Process: circumstantial Thought Content: Denies SI/HI's and AVH's, delusional Motor Activity: lying in bed Cognition: A/Ox 2 Insight: limited Judgment: limited Assessment and Plan Impression: Historical Dx: Alcohol abuse. Alcohol Use DO. Today patient is calm and cooperative. Medical: Encephalopathy, etiology unclear Recommendation/Plan: Continue Remeron 15 mg PO HS for sleep consolidation. Delirium precautions below. Discussed with patient and family the importance to abstain from alcohol consumption. 1. Frequently reorient patient and involve him/her in their care (simple explanations of procedures, tests, medications). 2. Lights on and shades open during daytime hours. 3. Try to avoid unnecessary interruptions to sleep during nighttime hours. 4. Obtain glasses, hearing aids from home if patient uses these at baseline. 5. Avoid medications that may exacerbate delirium (especially narcotics, benzodiazepines, barbiturates, ambien, lunesta, and medications with excessive anticholinergic properties). 6. Modify Haldol 2 mg IM to Q6hrs for agitation. 7. Start Haldol 5 mg PO BID for agitation.
--- NOTE | 2017-08-03 12:20 | Progress Note ---
Assessment and Plan Assessment and plan: Encephalopathy has resolved. Secondary to alcohol withdrawal. - Patient Problems (1) Acute encephalopathy Current Visit: Yes Status: Acute Plan to address problem: Significantly improved. Still awaiting placement. Patient not stable enough to be home taking care of himself. No family members at present. (2) Delirium tremens Current Visit: Yes Status: Acute Plan to address problem: Delirium tremens has resolved. No episodes greater than 72 hours. Awaiting placement to inpatient psychiatric facility. History Interval history: With another episode of sundowning over p.m. Patient has been medically cleared for inpatient admission to psychiatric facility. Patient needs to be off of restraints for 24 hours therefore will go tomorrow. Haldol is been added for sundowning in the p.m. avoid harsh Hospitalist Physical - Constitutional Vitals: Temp Pulse Resp BP Pulse Ox 97.8 F 76 18 143/75 99 08/03/17 08:46 08/03/17 08:46 08/03/17 08:46 08/03/17 08:46 08/03/17 08:46 General appearance: Present: no acute distress, well-nourished, other ( Confused) - EENT Eyes: Present: PERRL, EOM intact ENT: hearing intact - Neck Neck: Present: supple, normal ROM - Respiratory Respiratory: bilateral: CTA - Cardiovascular Rhythm: regular Heart Sounds: Present: S1 & S2 - Extremities Extremities: no ischemia, pulses intact, pulses symmetrical, No edema - Abdominal General gastrointestinal: soft, non-tender, non-distended - Psychiatric Psychiatric: other - Neurologic Neurologic: CNII-XII intact Results - Labs CBC & Chem 7: 07/29/17 06:15 07/29/17 06:15 Labs: Laboratory Last Values WBC 5.0 K/mm3 (4.5-11.0) 07/29/17 06:15 RBC 3.21 M/mm3 (3.65-5.03) L 07/29/17 06:15 Hgb 11.1 gm/dl (11.8-15.2) L 07/29/17 06:15 Hct 32.4 % (35.5-45.6) L 07/29/17 06:15 MCV 101 fl (84-94) H 07/29/17 06:15 MCH 34 pg (28-32) H 07/29/17 06:15 MCHC 34 % (32-34) 07/29/17 06:15 RDW 12.6 % (13.2-15.2) L 07/29/17 06:15 Plt Count 234 K/mm3 (140-440) 07/29/17 06:15 Lymph % (Auto) 13.1 % (13.4-35.0) L 07/29/17 06:15 [place] % (Auto) 12.4 % (0.0-7.3) H 07/29/17 06:15 Eos % (Auto) 5.0 % (0.0-4.3) H 07/29/17 06:15 Baso % (Auto) 1.3 % (0.0-1.8) 07/29/17 06:15 Lymph # 0.7 K/mm3 (1.2-5.4) L 07/29/17 06:15 [place] # 0.6 K/mm3 (0.0-0.8) 07/29/17 06:15 Eos # 0.3 K/mm3 (0.0-0.4) 07/29/17 06:15 Baso # 0.1 K/mm3 (0.0-0.1) 07/29/17 06:15 Seg Neutrophils % 68.2 % (40.0-70.0) 07/29/17 06:15 Seg Neutrophils # 3.4 K/mm3 (1.8-7.7) 07/29/17 06:15 Sodium 142 mmol/L (137-145) 07/29/17 06:15 Potassium 3.6 mmol/L (3.6-5.0) 07/29/17 06:15 Chloride 105.9 mmol/L (98-107) 07/29/17 06:15 Carbon Dioxide 23 mmol/L (22-30) 07/29/17 06:15 Anion Gap 17 mmol/L 07/29/17 06:15 BUN 11 mg/dL (9-20) 07/29/17 06:15 Creatinine 0.4 mg/dL (0.8-1.5) L 07/29/17 06:15 Estimated GFR > 60 ml/min 07/29/17 06:15 BUN/Creatinine Ratio 27.50 % 07/29/17 06:15 Glucose 100 mg/dL (75-100) 07/29/17 06:15 Hemoglobin A1c 4.5 % (4-6) 07/18/17 21:37 Calcium 8.4 mg/dL (8.4-10.2) 07/29/17 06:15 Phosphorus 3.50 mg/dL (2.5-4.5) 07/24/17 06:13 Magnesium 1.80 mg/dL (1.7-2.3) 07/24/17 06:13 Iron 32 ug/dL (49-181) L 07/18/17 21:38 TIBC 182.00 mcg/dL (250-450) L 07/18/17 21:38 % Saturation 17.58 % 07/18/17 21:38 Transferrin 130 mg/dl (180-329) L 07/18/17 21:38 Total Bilirubin 0.60 mg/dL (0.1-1.2) 07/19/17 04:00 Direct Bilirubin 0.2 mg/dL (0-0.2) 07/18/17 14:45 Indirect Bilirubin 0.4 mg/dL 07/18/17 14:45 AST 25 units/L (5-40) 07/19/17 04:00 ALT 22 units/L (7-56) 07/19/17 04:00 Alkaline Phosphatase 74 units/L (35-129) 07/19/17 04:00 Ammonia 28.0 umol/L (25-60) 07/18/17 14:45 Total Creatine Kinase 88 units/L (55-170) 07/19/17 08:18 CK-MB (CK-2) 3.0 ng/mL (0.0-4.0) 07/19/17 08:18 CK-MB (CK-2) Rel Index 3.4 (0-4) 07/19/17 08:18 Troponin T < 0.010 ng/mL (0.00-0.029) 07/19/17 08:18 Total Protein 5.7 g/dL (6.3-8.2) L 07/19/17 04:00 Albumin 2.9 g/dL (3.9-5) L 07/19/17 04:00 Albumin/Globulin Ratio 1.0 % 07/19/17 04:00 Vitamin B12 510.9 pg/mL (211-911) 07/18/17 21:39 RBC Folic Acid 462 ng/mL (>280) 07/18/17 21:29 Urine Color Straw (Yellow) 07/18/17 14:39 Urine Turbidity Clear (Clear) 07/18/17 14:39 Urine pH 6.0 (5.0-7.0) 07/18/17 14:39 Ur Specific [place] 1.010 (1.003-1.030) 07/18/17 14:39 Urine Protein <15 mg/dl mg/dL (Negative) 07/18/17 14:39 Urine Glucose (UA) Neg mg/dL (Negative) 07/18/17 14:39 Urine Ketones Neg mg/dL (Negative) 07/18/17 14:39 Urine Blood Neg (Negative) 07/18/17 14:39 Urine Nitrite Neg (Negative) 07/18/17 14:39 Urine Bilirubin Neg (Negative) 07/18/17 14:39 Urine Urobilinogen < 2.0 mg/dL (<2.0) 07/18/17 14:39 Ur Leukocyte Esterase Neg (Negative) 07/18/17 14:39 Urine WBC (Auto) < 1.0 /HPF (0.0-6.0) 07/18/17 14:39 Urine RBC (Auto) 1.0 /HPF (0.0-6.0) 07/18/17 14:39 Urine Opiates Screen Presumptive negative 07/18/17 14:39 Urine Methadone Screen Presumptive negative 07/18/17 14:39 Ur Barbiturates Screen Presumptive negative 07/18/17 14:39 Ur Phencyclidine Scrn Presumptive negative 07/18/17 14:39 Ur Amphetamines Screen Presumptive negative 07/18/17 14:39 U Benzodiazepines Scrn Presumptive negative 07/18/17 14:39 Urine Cocaine Screen Presumptive negative 07/18/17 14:39 U Marijuana (THC) Screen Presumptive negative 07/18/17 14:39 Drugs of Abuse Note Disclamer 07/18/17 14:39 Plasma/Serum Alcohol < 0.01 gm% (0-0.07) 07/18/17 14:45
[2017-08-03] MEDS ORDERED: HALDOL IM PRN (13:05)
[2017-08-04] MEDS: MAG-OX PO SCH ×2 (09:00→09:09)
[2017-08-04] MEDS: PEPCID PO SCH ×2 (09:01→09:09)
[2017-08-04] MEDS: HALDOL PO SCH ×3 (09:01→09:09)
[2017-08-04] MEDS: REMERON PO SCH (09:02)
--- NOTE | 2017-08-04 09:26 | Progress Note ---
Assessment and Plan Assessment and plan: --Encephalopathy. Stable --Frequent falls. Patient reportedly had 3 falls within a 60 day prior to admission. Consider repeat CT scan. Neuro consultation pending. Fall precautions, restraint for safety as needed, physical therapy when patient more cooperative. --Alcohol-related dementia syndrome; patient has become intermittently agitated. Continue Haldol and Ativan as needed, Thiamine and folic acid --Syncope; probably secondary to underlying alcohol use, partly vasovagal, fall precautions --chronic alcohol abuse --Syncope. Etiology likely vasovagal. ECHO LVEF 55-60% --DVT prophylaxis. SCDs only. No anticoagulation because of history of subdural hematoma, alcohol abuse and likely frequent falls. --Physical therapy as tolerated try to to monitor the patient off restraints daily --FULL CODE STATUS Disposition. Patient awaiting placement at SNF History Interval history: Patient is without complaints. However patient is confused and attempting to get out of bed. Hospitalist Physical - Constitutional Vitals: Temp Pulse Resp BP Pulse Ox 97.7 F 72 18 149/81 99 08/04/17 08:06 08/04/17 08:06 08/04/17 08:06 08/04/17 08:06 08/04/17 08:06 General appearance: Present: no acute distress, well-nourished, other ( Confused) - EENT Eyes: Present: PERRL, EOM intact ENT: hearing intact, clear oral mucosa, dentition normal - Neck Neck: Present: supple, normal ROM - Respiratory Respiratory effort: normal Respiratory: bilateral: CTA - Cardiovascular Rhythm: regular Heart Sounds: Present: S1 & S2. Absent: gallop, rub - Extremities Extremities: no ischemia, No edema, Full ROM - Abdominal General gastrointestinal: soft, non-tender, non-distended, normal bowel sounds - Integumentary Integumentary: Present: clear, warm, dry - Neurologic Neurologic: CNII-XII intact, moves all extremities Results - Labs CBC & Chem 7: 07/29/17 06:15 07/29/17 06:15 Labs: Laboratory Last Values WBC 5.0 K/mm3 (4.5-11.0) 07/29/17 06:15 RBC 3.21 M/mm3 (3.65-5.03) L 07/29/17 06:15 Hgb 11.1 gm/dl (11.8-15.2) L 07/29/17 06:15 Hct 32.4 % (35.5-45.6) L 07/29/17 06:15 MCV 101 fl (84-94) H 07/29/17 06:15 MCH 34 pg (28-32) H 07/29/17 06:15 MCHC 34 % (32-34) 07/29/17 06:15 RDW 12.6 % (13.2-15.2) L 07/29/17 06:15 Plt Count 234 K/mm3 (140-440) 07/29/17 06:15 Lymph % (Auto) 13.1 % (13.4-35.0) L 07/29/17 06:15 [place] % (Auto) 12.4 % (0.0-7.3) H 07/29/17 06:15 Eos % (Auto) 5.0 % (0.0-4.3) H 07/29/17 06:15 Baso % (Auto) 1.3 % (0.0-1.8) 07/29/17 06:15 Lymph # 0.7 K/mm3 (1.2-5.4) L 07/29/17 06:15 [place] # 0.6 K/mm3 (0.0-0.8) 07/29/17 06:15 Eos # 0.3 K/mm3 (0.0-0.4) 07/29/17 06:15 Baso # 0.1 K/mm3 (0.0-0.1) 07/29/17 06:15 Seg Neutrophils % 68.2 % (40.0-70.0) 07/29/17 06:15 Seg Neutrophils # 3.4 K/mm3 (1.8-7.7) 07/29/17 06:15 Sodium 142 mmol/L (137-145) 07/29/17 06:15 Potassium 3.6 mmol/L (3.6-5.0) 07/29/17 06:15 Chloride 105.9 mmol/L (98-107) 07/29/17 06:15 Carbon Dioxide 23 mmol/L (22-30) 07/29/17 06:15 Anion Gap 17 mmol/L 07/29/17 06:15 BUN 11 mg/dL (9-20) 07/29/17 06:15 Creatinine 0.4 mg/dL (0.8-1.5) L 07/29/17 06:15 Estimated GFR > 60 ml/min 07/29/17 06:15 BUN/Creatinine Ratio 27.50 % 07/29/17 06:15 Glucose 100 mg/dL (75-100) 07/29/17 06:15 Hemoglobin A1c 4.5 % (4-6) 07/18/17 21:37 Calcium 8.4 mg/dL (8.4-10.2) 07/29/17 06:15 Phosphorus 3.50 mg/dL (2.5-4.5) 07/24/17 06:13 Magnesium 1.80 mg/dL (1.7-2.3) 07/24/17 06:13 Iron 32 ug/dL (49-181) L 07/18/17 21:38 TIBC 182.00 mcg/dL (250-450) L 07/18/17 21:38 % Saturation 17.58 % 07/18/17 21:38 Transferrin 130 mg/dl (180-329) L 07/18/17 21:38 Total Bilirubin 0.60 mg/dL (0.1-1.2) 07/19/17 04:00 Direct Bilirubin 0.2 mg/dL (0-0.2) 07/18/17 14:45 Indirect Bilirubin 0.4 mg/dL 07/18/17 14:45 AST 25 units/L (5-40) 07/19/17 04:00 ALT 22 units/L (7-56) 07/19/17 04:00 Alkaline Phosphatase 74 units/L (35-129) 07/19/17 04:00 Ammonia 28.0 umol/L (25-60) 07/18/17 14:45 Total Creatine Kinase 88 units/L (55-170) 07/19/17 08:18 CK-MB (CK-2) 3.0 ng/mL (0.0-4.0) 07/19/17 08:18 CK-MB (CK-2) Rel Index 3.4 (0-4) 07/19/17 08:18 Troponin T < 0.010 ng/mL (0.00-0.029) 07/19/17 08:18 Total Protein 5.7 g/dL (6.3-8.2) L 07/19/17 04:00 Albumin 2.9 g/dL (3.9-5) L 07/19/17 04:00 Albumin/Globulin Ratio 1.0 % 07/19/17 04:00 Vitamin B12 510.9 pg/mL (211-911) 07/18/17 21:39 RBC Folic Acid 462 ng/mL (>280) 07/18/17 21:29 Urine Color Straw (Yellow) 07/18/17 14:39 Urine Turbidity Clear (Clear) 07/18/17 14:39 Urine pH 6.0 (5.0-7.0) 07/18/17 14:39 Ur Specific [place] 1.010 (1.003-1.030) 07/18/17 14:39 Urine Protein <15 mg/dl mg/dL (Negative) 07/18/17 14:39 Urine Glucose (UA) Neg mg/dL (Negative) 07/18/17 14:39 Urine Ketones Neg mg/dL (Negative) 07/18/17 14:39 Urine Blood Neg (Negative) 07/18/17 14:39 Urine Nitrite Neg (Negative) 07/18/17 14:39 Urine Bilirubin Neg (Negative) 07/18/17 14:39 Urine Urobilinogen < 2.0 mg/dL (<2.0) 07/18/17 14:39 Ur Leukocyte Esterase Neg (Negative) 07/18/17 14:39 Urine WBC (Auto) < 1.0 /HPF (0.0-6.0) 07/18/17 14:39 Urine RBC (Auto) 1.0 /HPF (0.0-6.0) 07/18/17 14:39 Urine Opiates Screen Presumptive negative 07/18/17 14:39 Urine Methadone Screen Presumptive negative 07/18/17 14:39 Ur Barbiturates Screen Presumptive negative 07/18/17 14:39 Ur Phencyclidine Scrn Presumptive negative 07/18/17 14:39 Ur Amphetamines Screen Presumptive negative 07/18/17 14:39 U Benzodiazepines Scrn Presumptive negative 07/18/17 14:39 Urine Cocaine Screen Presumptive negative 07/18/17 14:39 U Marijuana (THC) Screen Presumptive negative 07/18/17 14:39 Drugs of Abuse Note Disclamer 07/18/17 14:39 Plasma/Serum Alcohol < 0.01 gm% (0-0.07) 07/18/17 14:45
--- NOTE | 2017-08-04 11:40 | Discharge Summary ---
Providers - Providers Date of Admission: 07/18/17 19:15 Date of discharge: 08/04/17 Attending physician: DARLINE HEATH 07/19/17 08:07 Consult to Mental Health [CONS] Routine Reason For Exam: Etoh dependence Place consult to:: Mental Health Notified:: Mariana CARRION Phone number called:: [phone] Was contact made?: Yes If yes, spoke with:: [facility] 07/21/17 07:52 Physical Therapy Evaluation and Treat [CONS] Routine Comment: Reason For Exam: generalized weakness 07/30/17 11:39 Consult to Physician [CONS] Routine Consulting Provider: RENATA JORDAN Reason For Exam: AMS Place consult to:: DR. CLINTON Notified:: DR. JORDAN Primary care physician: HOMICIDE SQUAD LIEUTENANT Hospitalization Reason for admission: AMS Condition: Stable Hospital course: Mr. Washburn is a 67-year-old white male patient who originally admitted to this hospital 07/18/2017 as a transfer from from a psychiatric or a rehabilitation facility for "medical clearance". 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 No evidence of hydrocephalus or subdural fluid collections or hematomas. Throughout the hospitalization, he had been noted to have agitation and sleep disturbances and confusion. He does have a history of heavy alcohol abuse and was placed on CIWA protocol. Etiology of his confusion was felt to be secondary to alcohol withdrawal syndrome. He has had several falls in the last few months. Therefore, there was also some concern for recurrent syncope. Patient was seen by cardiology and an echocardiogram was obtained with EF 55- 60%. Etiology of the syncope was felt to be vasovagal. The patient was seen by neurology and psychiatry consultations well. Patient continued to have agitation and confusion as noted above. Neurology felt that the initial altered mentation secondary to acute encephalopathy from alcohol withdrawal syndrome and the ongoing confusion is likely associated with alcohol related dementia syndrome. Patient was maintained on medications such as Haldol. Patient initially required restraints for safety but later I was without restraints for 24 hours. Therefore, case management arranged for discharge to SNF. Dedicated discharge time 32 minutes. Disposition: [id number]/TX-[id number] SNF [facility] C[facility] Time spent for discharge: 32 - Discharge Diagnoses (1) Alcohol related disease or syndrome Status: Acute (2) Acute encephalopathy Status: Acute (3) Delirium tremens Status: Acute (4) Syncope Status: Acute Qualifiers: Syncope type: unspecified Encounter type: E Qualified Code(s): R55 - Syncope and collapse (5) Anemia Status: Chronic Qualifiers: Anemia type: A Iron deficiency anemia type: I Vitamin B12 deficiency anemia type: V Folate deficiency anemia type: F Bone marrow failure anemia type: B Hemolytic anemia type: H Other causes of anemia: O Chronic kidney disease stage: C Core Measure Documentation - Palliative Care Palliative Care/ Comfort Measures: Not Applicable - Core Measures Any of the following diagnoses?: none Exam - Constitutional Vitals: Temp Pulse Resp BP Pulse Ox 98.6 F 57 L 18 141/70 98 08/04/17 10:14 08/04/17 10:14 08/04/17 10:14 08/04/17 10:14 08/04/17 10:14 General appearance: Present: no acute distress, well-nourished - EENT Eyes: Present: PERRL ENT: hearing intact, clear oral mucosa - Neck Neck: Present: supple, normal ROM - Respiratory Respiratory effort: normal Respiratory: bilateral: CTA - Cardiovascular Heart Sounds: Present: S1 & S2. Absent: rub, click - Extremities Extremities: pulses symmetrical, No edema Peripheral Pulses: within normal limits - Abdominal General gastrointestinal: Present: soft, non-tender, non-distended, normal bowel sounds Male genitourinary: Present: normal - Integumentary Integumentary: Present: clear, warm, dry - Musculoskeletal Musculoskeletal: gait normal, strength equal bilaterally - Psychiatric Psychiatric: appropriate mood/affect, intact judgment & insight - Neurologic Neurologic: CNII-XII intact, moves all extremities Plan Activity: no restrictions Weight Bearing Status: Full Weight Bearing Diet: regular Follow up with: PRIMARY CARE, [Primary Care Provider] - 3-5 Days
--- NOTE | 2017-08-04 12:00 | Progress Note ---
Subjective - Reason for Consult Consult date: 08/04/17 Reason for consult: Psychiatry Follow - Chief Complaint Chief complaint: "Wes anthony" The patient was sent to this facility for medical clearance from a psychiatric facility. Per the ER note, the patient was sent from [facility] for evaluation and medical clearance to [facility]. Today patient is calm and cooperative during the assessment. He stated that he is looking forward to being discharged. Per the staff, patient been without restraints for 24 hours. He denies SI/HI's and AVH's. He denies any side effects of medications. Mental Status Exam - Vital signs Last Vital Signs Temp 98.6 F 08/04/17 10:14 Pulse 57 L 08/04/17 10:14 Resp 18 08/04/17 10:14 BP 141/70 08/04/17 10:14 Pulse Ox 98 08/04/17 10:14 - Exam Narrative exam: MSE: Appearance: calm, cooperative Behavior: regular eye contact Speech: regular rate and tone Mood: "pretty good" Affect: congruent to mood Thought Process: circumstantial Thought Content: Denies SI/HI's and AVH's Motor Activity: lying in bed Cognition: A/Ox 2 Insight: variable Judgment: variable Assessment and Plan Impression: Historical Dx: Alcohol abuse. Alcohol Use DO. Today patient is calm and cooperative. Patient is not in restraints. Medical: Encephalopathy, etiology unclear Recommendation/Plan: Continue Remeron 15 mg PO HS for sleep consolidation. Delirium precautions below. Discussed with patient and family the importance to abstain from alcohol consumption. Patient pending placement to SNF. 1. Frequently reorient patient and involve him/her in their care (simple explanations of procedures, tests, medications). 2. Lights on and shades open during daytime hours. 3. Try to avoid unnecessary interruptions to sleep during nighttime hours. 4. Obtain glasses, hearing aids from home if patient uses these at baseline. 5. Avoid medications that may exacerbate delirium (especially narcotics, benzodiazepines, barbiturates, ambien, lunesta, and medications with excessive anticholinergic properties). 6. Modify Haldol 2 mg IM to Q6hrs for agitation. 7. Continue Haldol 5 mg PO BID for agitation.
[2017-08-04] MEDS ORDERED: Fluarix Quad 2017-2018(36 MOS+) IM ONE (12:30)
[2017-08-04 13:21] VITALS: BP 125/78
== END 2017-08-04 13:50 | DRG 896 ==
LOC: ED 13:58 → 4A 19:15 → 3A 07-24 13:49
PROVIDERS: ADMIT Internal Medicine; ATTEND Hospitalist
PROC: 3E0234Z Introduction of Serum, Toxoid and Vaccine into Muscle, Percutaneous Approach (ICD-10-PCS; principal; 2017-07-18)
DX: F10.231 Alcohol dependence with withdrawal delirium (principal); G92 Toxic encephalopathy; E87.1 Hypo-osmolality and hyponatremia; R55 Syncope and collapse; S09.90XA Unspecified injury of head, initial encounter; D64.9 Anemia, unspecified; F03.90 Unspecified dementia, unspecified severity, without behavioral disturbance, psychotic disturbance, mood disturbance, and anxiety; P54.5 Neonatal cutaneous hemorrhage; E87.6 Hypokalemia; E83.42 Hypomagnesemia; G31.9 Degenerative disease of nervous system, unspecified; Z88.6 Allergy status to analgesic agent; Z88.8 Allergy status to other drugs, medicaments and biological substances; Z98.49 Cataract extraction status, unspecified eye; Z71.41 Alcohol abuse counseling and surveillance of alcoholic; Z91.81 History of falling; I25.2 Old myocardial infarction; Z23 Encounter for immunization
CPT/HCPCS: 36415; 70450; 71010; 72125; 78452; 80048; 80053; 80074; 80307; 80320; 81001; 82140; 82550; 82553; 82607; 82747; 83036; 83550; 83735; 84100; 84132; 84484; 85014; 85018; 85025; 85027; 90686; 93005; 93010; 93017; 93306; 93880; A9502; G0480; G8978-GP; G8979-GP; J1630; J2060; J2405; J2785; J3411; J3480; J7030